=== PATIENT | female | born 1955 | race Caucasian/White ===

== ENCOUNTER 2018-02-16 08:39 | Outpatient (REF) | payer MEDICAID, SELFPAY ==
[2018-02-16 18:37] LABS: Abs Immature Grans 0.01 k/cumm (0.0-0.09); Absolute Basophil Count 0.07 k/cumm (0.0-0.2); Absolute Eosinophil Count 0.17 k/cumm (0.0-0.7); Absolute Neutrophil Count 2.55 k/cumm (1.2-6.7); Basophils % 1.4; Eosinophils % 3.3; HCT 40.6 % (36.0-46.0); HGB 13.2 g/dL (12.0-15.5); Immature Grans % 0.2; Lymphocytes % 35.3; Mean Corp. HGB Concentration 32.5 g/dL (32.0-36.0); Mean Corpuscular Hemoglobin 30.1 pg (27.0-33.0); Mean Corpuscular Volume 92.5 fL (80-95); Mean Platelet Volume 12.4 fL (8.0-11.0); Monocytes % 9.8; Platelet Count 262 x1000/uL (130-400); RBC 4.39 m/cumm (4.00-5.20)
[2018-02-16 18:56] LABS: ALT 21 U/L (12-78); AST 18 U/L (15-37); Albumin 3.5 g/dL (3.4-5.0); Alkaline Phosphatase 98 U/L (46-116); Anion Gap 8.9 mmol/L (3-11); BUN 12 mg/dL (7-18); Bilirubin, Total 0.4 mg/dL (0.2-1.0); CO2 28.1 mmol/L (21.0-32.0); Calcium 9.1 mg/dL (8.5-10.1); Chloride 106 mmol/L (98-107); Cholesterol 261 mg/dL (50-200); Glucose 93 mg/dL (70-100); HDL Cholesterol 84 mg/dL (40-60); LDL CHOLESTEROL 163 mg/dL (<100); Magnesium 1.9 mg/dL (1.8-2.4); Potassium 4.4 mmol/L (3.5-5.1); Sodium 143 mmol/L (136-145); TSH 4.41 uIU/mL (0.358-3.74); Total Protein 6.4 g/dL (6.4-8.2); Triglyceride 30 mg/dL (30-150)
== END 2018-02-16 08:59 ==
LOC: NCHCN 08:39
PROVIDERS: PCP Specialist/Technologist Athletic Trainer; Visit Provider Nurse Practitioner Family
DX: E03.9 Hypothyroidism, unspecified (principal)
CPT/HCPCS: 80053; 80061; 83721; 83735; 84443; 85025

== ENCOUNTER 2018-05-31 18:50 | Outpatient (REF) | payer MEDICAID, SELFPAY ==
--- NOTE | 2018-05-31 18:20 | PAPFT_PTH ---
PATIENT: Zhane Parra LOC: [facility]#:[id number] AGE/SX: 63/F ROOM: RE05/31/[address]: Zeynep Dolan : 1955 BED: DIS: 05/31/2018 SPEC #: [id number] RECD: 06/01/18 13:00 STATUS: FELIPE GONZÁLES #: [id number] LE: 05/31/18 18:[address]: Zeynep Dolan DEPT: [facility] Cytology RECD BY: Anais Junior ENTERED: 06/01/18 13:00 SP TYPE: PAPFT ANNELISE DR: Tip Velasco Tissues: 1 - CX/ENDOCX FOR PAP SMEARS Procedures: PAP THIN PREP/UVM Screening HPV DNA PROBE Comments: [id number]
== END 2018-05-31 19:10 ==
LOC: NCHCN 18:50
PROVIDERS: PCP Specialist/Technologist Athletic Trainer; Visit Provider Nurse Practitioner Family
DX: Z12.4 Encounter for screening for malignant neoplasm of cervix (principal); Z11.51 Encounter for screening for human papillomavirus (HPV); Z01.419 Encounter for gynecological examination (general) (routine) without abnormal findings
CPT/HCPCS: 88142; 87624

== ENCOUNTER 2018-06-20 00:20 | Outpatient (CLI) | payer MEDICAID, SELFPAY ==
--- NOTE | 2018-06-20 08:50 | DI.MAMMO_ITS ---
SYMPTOM/DIAGNOSIS: SCREENING, PREVENTIVE HEALTH CARE, Z00.00 MAMMOGRAMS: Mammograms were interpreted according to the usual protocol including computer analysis with CAD system, tomosynthesis and C view imaging. The breast tissue is of moderate radiodensity. There is no evidence of a mass. There are no suspicious calcifications and there has been no significant interval change when compared with prior images. SUMMARY: No evidence of malignancy. Category 1. Yearly screening mammography is recommended. Breast density, Category B. SA ASSESSMENT OF FINDINGS: Negative. Category 1. Patient will receive a letter notifying them of these results. BI-RADS category B. There are scattered areas of fibroglandular density.
== END 2018-06-20 00:40 ==
PROVIDERS: PCP Specialist/Technologist Athletic Trainer; Visit Provider Nurse Practitioner Family
DX: Z12.31 Encounter for screening mammogram for malignant neoplasm of breast (principal); Z00.00 Encounter for general adult medical examination without abnormal findings
CPT/HCPCS: 77063; 77067

== ENCOUNTER 2018-07-16 20:51 | Emergency (ER) | payer MEDICAID, SELFPAY ==
[2018-07-16 21:02] VITALS: BP 144/92; PULSE 85; RESP 20; TEMP 36.4; O2SAT 95
--- NOTE | 2018-07-16 21:36 | W.ED.GENAD ---
Discharge Plan Disposition Patient Disposition: HOME Condition: Stable Discharge Details Chief Complaint: Sorethroat Clinical Impression: Ingestion of foreign substance Primary Care Provider: Tip Velasco ED Provider: Elizabeth Bojorquez Home Meds and New Rx's Prescriptions: Continued rizatriptan [Maxalt-JERSEY KNITTER] 10 mg tablet,disintegrating 10 mg PO ONCE PRN (Reason: migraine headache) RF: 0 clobetasol 0.05 % cream 1 applic TP BID RF: 0 aspirin [Adult Aspirin Regimen] 81 mg tablet,delayed release (DR/EC) 81 mg PO DAILY RF: 0 triamcinolone acetonide 0.1 % cream 1 applic TP BID RF: 0 pantoprazole [Protonix] 20 mg tablet,delayed release (DR/EC) 20 mg PO DAILY RF: 0 levothyroxine 75 MCG tablet 75 mcg PO DAILY RF: 0 epinephrine 0.3 MG/SYR auto-injector 0.3 mg IJ PRN PRNRF: 0 Discharge Instructions Additional Instructions: Continue to encourage hydration. Please monitor for worsening symptoms including feeling throat tightness, difficulty breathing, shortness of breath, pain with eating or other new/worsening symptoms. If these arise please seek care urgently once again. Please follow-up with primary care if not improved in 1 week Referrals: Tip Velasco [Primary Care Provider] - Discharge Data Discharge Date/Time-TO BE ENTERED AT DEPARTURE: 07/16/18 22:20 Medical Decision Making Patient presents after swallowing an unknown substance yesterday morning with concern for unusual taste in her mouth that is been persistent. She states that her symptoms are minimally improved. No difficulty breathing, shortness of breath and throat. On exam, findings are benign. I do not see any intraoral lesions, she is breathing comfortably, no stridor. Given the length of time since ingestion committed to feel that monitoring the patient further is necessary. Advised that if she is improving she will likely continue to do so. Patient is not quite anxious, discussed this with patient. Advised that if the subsance was likely to cause swelling or lesions it would have likely done so by this point. Discussed new/worsening symptoms and hwne to seek care urgently once again. Advised f/u with PCP if not improving. All quesions and concerns were addressed, she is in agreement with this plan. HPI General Mode of arrival: ambulatory. Date/Time Provider Initiated Documentation: 07/16/18 21:35. Limitations to Documentation: no limitations. Information obtained by: patient, family (friend) and RN notes reviewed. HPI Narrative: Patient is 63-year-old otherwise healthy female presenting today with chief complaint of swelling unknown substance yesterday morning. She reports that she attempted to take a dose of Echinacea. Has a bottle with her that is labeled as such. However, she reports that this is not in fact Echinacea. Believes that his son-in-law was mixing other essential oils to make massage oil. Unknown contents. States that as soon as she put the substance in her mouth, she spit this out. States she may have swallowed a small amount. Since that time she reports that she is been tasting a metallic taste and has had some discomfort. No sweling, SOB, difficulty breathing, lesions. SYmptoms improve with PO intake. Related Data Home Medications Medication Instructions Recorded Confirmed epinephrine 0.3 mg IJ PRN PRN 06/26/12 07/16/18 levothyroxine 75 mcg PO DAILY tab-cap 10/17/13 07/16/18 aspirin 81 mg tablet,delayed 81 mg PO DAILY 06/08/18 07/16/18 release clobetasol 0.05 % topical cream 1 applic TP BID 06/08/18 07/16/18 pantoprazole 20 mg tablet,delayed 20 mg PO DAILY 06/08/18 07/16/18 release rizatriptan 10 mg disintegrating 10 mg PO ONCE PRN tab 06/08/18 07/16/18 tablet triamcinolone acetonide 0.1 % 1 applic TP BID 06/08/18 07/16/18 topical cream Allergies Allergy/AdvReac Type Severity Reaction Status Date / Time venom-honey bee Allergy Intermediate unknown Unverified 07/16/18 21:05 [bee venom (honey bee)] Sulfa (Sulfonamide Allergy unknown Unverified 07/16/18 21:05 Antibiotics) General Stated Complaint: Sorethroat DIANA: 4 Review of Systems Constitutional Reports as per HPI, Denies chills, Denies fever(s) and Denies headache(s) Eyes Reports as per HPI, Denies eye discharge and Denies irritation ENT Reports as per HPI and Denies headache(s) Cardiovascular Reports as per HPI, Denies chest pain, Denies dyspnea and Denies dyspnea on exertion Respiratory Reports as per HPI, Denies change in phlegm color, Denies chest congestion, Denies cough, Denies hemoptysis, Denies pain on inspiration, Denies pain with cough, Denies dyspnea, Denies dyspnea on exertion, Denies stridor and Denies wheezing Gastrointestinal Reports as per HPI, Denies abdominal pain, Denies change in bowel habits, Denies nausea and Denies vomiting Integumentary/Breasts Reports as per HPI and Denies rash Neurologic Reports as per HPI and Denies headache(s) Allergic/Immunologic Denies wheezing [facility] Medical History Acute hemorrhoid (Acute) Costochondritis (Acute) Rectal bleed (Acute) GERD (gastroesophageal reflux disease) (Chronic) Herpes simplex (Chronic) Plantar fasciitis (Chronic) Xerosis of skin (Chronic) History of DVT of lower extremity Hypothyroidism Migraine Prothrombin gene mutation Surgical History Rotator Cuff Repair Family History Father Personal history of malignant neoplasm Maternal Uncle Personal history of malignant neoplasm Mother No problems noted. Social History Smoking/Tobacco Use Status: Never Alcohol Intake: current Alcohol Intake frequency: holidays/special occasions only Drug use: Never Do you feel safe at home: Yes Do you feel safe in your relationship?: Yes Exam Const General: cooperative, healthy appearing, comfortable, no acute distress, well developed and well groomed Nutritional Appearance: average body habitus and well nourished Orientation: alert and awake [facility] Head: normal to inspection, normocephalic and atraumatic Ears: hearing grossly normal bilaterally, external ears normal and TM's normal bilaterally General nose exam: external nose normal and nares normal Face and sinus: normal facial exam, sinuses nontender and face symmetric Mouth: oral mucosae normal, lip normal, tongue normal, oropharynx normal and moist mucous membranes Teeth and gingiva: dentition normal Throat: posterior oropharynx normal, tonsils normal and uvula midline Eyes General: appearance normal, both eyes and all related structures Neck Neck: normal visual inspection, full ROM, no lymphadenopathy and no meningeal signs Resp Effort & Inspection: normal respiratory effort, able to speak in complete sentences and no respiratory distress Auscultation: clear to auscultation bilaterally, no rales, no rhonchi and no wheezes Cardio Rate: regular rate Rhythm: regular rhythm Heart Sounds: S1 normal and S2 normal Skin General skin exam: no rashes or lesions noted Neuro General: alert and awake Cognition: normal cognition Speech: speech normal Gait: normal gait Psych Appearance: grossly normal and well kempt Mental Status: mental status grossly normal Speech and Movement: speech and movement normal Course Vital Signs Temperature 36.4 C L 07/16/18 21:02 Pulse 85 07/16/18 21:02 Respiratory Rate 20 07/16/18 21:02 Blood Pressure 144/92 H 07/16/18 21:02 Pulse Oximetry 95 07/16/18 21:02 Temperature 36.4 C L 07/16/18 21:02 Temperature Source Skin 07/16/18 21:02 Pulse 85 07/16/18 21:02 Respiratory Rate 20 07/16/18 21:02 Respiratory Effort Non-Labored 07/16/18 21:05 Blood Pressure 144/92 H 07/16/18 21:02 Blood Pressure Position Sitting 07/16/18 21:02 Pulse Oximetry 95 07/16/18 21:02 Oxygen Delivery Method Room Air 07/16/18 21:02 Oxygen Flow Rate 0 07/16/18 21:02
--- NOTE | 2018-07-19 07:48 | ED.GENADUL_ITS ---
Discharge Plan Disposition Patient Disposition: HOME Condition: Stable Discharge Details Chief Complaint: Sorethroat Clinical Impression: Ingestion of foreign substance Primary Care Provider: Tip Velasco ED Provider: Elizabeth Bojorquez Home Meds and New Rx's Prescriptions: Continued rizatriptan [Maxalt-CARBON COATING MACHINE OPERATOR] 10 mg tablet,disintegrating 10 mg PO ONCE PRN (Reason: migraine headache) RF: 0 clobetasol 0.05 % cream 1 applic TP BID RF: 0 aspirin [Adult Aspirin Regimen] 81 mg tablet,delayed release (DR/EC) 81 mg PO DAILY RF: 0 triamcinolone acetonide 0.1 % cream 1 applic TP BID RF: 0 pantoprazole [Protonix] 20 mg tablet,delayed release (DR/EC) 20 mg PO DAILY RF: 0 levothyroxine 75 MCG tablet 75 mcg PO DAILY RF: 0 epinephrine 0.3 MG/SYR auto-injector 0.3 mg IJ PRN PRNRF: 0 Discharge Instructions Additional Instructions: Continue to encourage hydration. Please monitor for worsening symptoms including feeling throat tightness, difficulty breathing, shortness of breath, pain with eating or other new/worsening symptoms. If these arise please seek care urgently once again. Please follow-up with primary care if not improved in 1 week Referrals: Tip Velasco [Primary Care Provider] - Discharge Data Discharge Date/Time-TO BE ENTERED AT DEPARTURE: 07/16/18 22:20 Medical Decision Making Patient presents after swallowing an unknown substance yesterday morning with concern for unusual taste in her mouth that is been persistent. She states that her symptoms are minimally improved. No difficulty breathing, shortness of breath and throat. On exam, findings are benign. I do not see any intraoral lesions, she is breathing comfortably, no stridor. Given the length of time since ingestion committed to feel that monitoring the patient further is necessary. Advised that if she is improving she will likely continue to do so. Patient is not quite anxious, discussed this with patient. Advised that if the subsance was likely to cause swelling or lesions it would have likely done so by this point. Discussed new/worsening symptoms and hwne to seek care urgently once again. Advised f/u with PCP if not improving. All quesions and concerns were addressed, she is in agreement with this plan. HPI General Mode of arrival: ambulatory . Date/Time Provider Initiated Documentation: 07/16/18 21:35 . Limitations to Documentation: no limitations . Information obtained by: patient, family (friend) and RN notes reviewed . HPI Narrative: Patient is 63-year-old otherwise healthy female presenting today with chief complaint of swelling unknown substance yesterday morning. She reports that she attempted to take a dose of Echinacea. Has a bottle with her that is labeled as such. However, she reports that this is not in fact Echinacea. Believes that his son-in-law was mixing other essential oils to make massage oil. Unknown contents. States that as soon as she put the substance in her mouth, she spit this out. States she may have swallowed a small amount. Since that time she reports that she is been tasting a metallic taste and has had some discomfort. No sweling, SOB, difficulty breathing, lesions. SYmptoms improve with PO intake. Related Data Home Medications Medication Instructions Recorded Confirmed epinephrine 0.3 mg IJ PRN PRN 06/26/12 07/16/18 levothyroxine 75 mcg PO DAILY tab-cap 10/17/13 07/16/18 aspirin 81 mg tablet,delayed 81 mg PO DAILY 06/08/18 07/16/18 release clobetasol 0.05 % topical cream 1 applic TP BID 06/08/18 07/16/18 pantoprazole 20 mg tablet,delayed 20 mg PO DAILY 06/08/18 07/16/18 release rizatriptan 10 mg disintegrating 10 mg PO ONCE PRN tab 06/08/18 07/16/18 tablet triamcinolone acetonide 0.1 % 1 applic TP BID 06/08/18 07/16/18 topical cream Allergies Allergy/AdvReac Type Severity Reaction Status Date / Time venom-honey bee Allergy Intermediate unknown Unverified 07/16/18 21:05 [bee venom (honey bee)] Sulfa (Sulfonamide Allergy unknown Unverified 07/16/18 21:05 Antibiotics) General Stated Complaint: Sorethroat DIANA: 4 Review of Systems Constitutional Reports as per HPI, Denies chills, Denies fever(s) and Denies headache(s) Eyes Reports as per HPI, Denies eye discharge and Denies irritation ENT Reports as per HPI and Denies headache(s) Cardiovascular Reports as per HPI, Denies chest pain, Denies dyspnea and Denies dyspnea on exertion Respiratory Reports as per HPI, Denies change in phlegm color, Denies chest congestion, Denies cough, Denies hemoptysis, Denies pain on inspiration, Denies pain with cough, Denies dyspnea, Denies dyspnea on exertion, Denies stridor and Denies wheezing Gastrointestinal Reports as per HPI, Denies abdominal pain, Denies change in bowel habits, Denies nausea and Denies vomiting Integumentary/Breasts Reports as per HPI and Denies rash Neurologic Reports as per HPI and Denies headache(s) Allergic/Immunologic Denies wheezing [facility] Medical History Acute hemorrhoid (Acute) Costochondritis (Acute) Rectal bleed (Acute) GERD (gastroesophageal reflux disease) (Chronic) Herpes simplex (Chronic) Plantar fasciitis (Chronic) Xerosis of skin (Chronic) History of DVT of lower extremity Hypothyroidism Migraine Prothrombin gene mutation Surgical History Rotator Cuff Repair Family History Father Personal history of malignant neoplasm Maternal Uncle Personal history of malignant neoplasm Mother No problems noted. Social History Smoking/Tobacco Use Status: Never Alcohol Intake: current Alcohol Intake frequency: holidays/special occasions only Drug use: Never Do you feel safe at home: Yes Do you feel safe in your relationship?: Yes Exam Const General: cooperative, healthy appearing, comfortable, no acute distress, well developed and well groomed Nutritional Appearance: average body habitus and well nourished Orientation: alert and awake [facility] Head: normal to inspection, normocephalic and atraumatic Ears: hearing grossly normal bilaterally, external ears normal and TM's normal bilaterally General nose exam: external nose normal and nares normal Face and sinus: normal facial exam, sinuses nontender and face symmetric Mouth: oral mucosae normal, lip normal, tongue normal, oropharynx normal and moist mucous membranes Teeth and gingiva: dentition normal Throat: posterior oropharynx normal, tonsils normal and uvula midline Eyes General: appearance normal, both eyes and all related structures Neck Neck: normal visual inspection, full ROM, no lymphadenopathy and no meningeal signs Resp Effort & Inspection: normal respiratory effort, able to speak in complete sentences and no respiratory distress Auscultation: clear to auscultation bilaterally, no rales, no rhonchi and no wheezes Cardio Rate: regular rate Rhythm: regular rhythm Heart Sounds: S1 normal and S2 normal Skin General skin exam: no rashes or lesions noted Neuro General: alert and awake Cognition: normal cognition Speech: speech normal Gait: normal gait Psych Appearance: grossly normal and well kempt Mental Status: mental status grossly normal Speech and Movement: speech and movement normal Course Vital Signs Temperature 36.4 C L 07/16/18 21:02 Pulse 85 07/16/18 21:02 Respiratory Rate 20 07/16/18 21:02 Blood Pressure 144/92 H 07/16/18 21:02 Pulse Oximetry 95 07/16/18 21:02 Temperature 36.4 C L 07/16/18 21:02 Temperature Source Skin 07/16/18 21:02 Pulse 85 07/16/18 21:02 Respiratory Rate 20 07/16/18 21:02 Respiratory Effort Non-Labored 07/16/18 21:05 Blood Pressure 144/92 H 07/16/18 21:02 Blood Pressure Position Sitting 07/16/18 21:02 Pulse Oximetry 95 07/16/18 21:02 Oxygen Delivery Method Room Air 07/16/18 21:02 Oxygen Flow Rate 0 07/16/18 21:02
== END 2018-07-16 22:20 | disposition home or self-care (01) ==
PROVIDERS: Emergency Provider Physician Assistant; PCP Specialist/Technologist Athletic Trainer
DX: R43.8 Other disturbances of smell and taste (principal)
CPT/HCPCS: 99282

== ENCOUNTER 2018-07-20 01:05 | Outpatient (CLI) | payer MEDICAID, SELFPAY ==
--- NOTE | 2018-07-20 08:10 | DI.US_ITS ---
SYMPTOM/DIAGNOSIS: RUQ PAIN, R10.11 ABDOMEN ULTRASOUND: The liver is normal in size and echogenicity. No focal liver lesions or biliary dilatation is seen. The gallbladder has a normal appearance, without evidence of stones or wall thickening. No right upper quadrant fluid is seen. The spleen, pancreas and aorta are unremarkable. There is a question of mild left hydronephrosis versus parapelvic cysts. No stones are identified. The renal parenchymal thickness and echogenicity are normal. IMPRESSION: Question of mild left hydronephrosis.
== END 2018-07-20 01:25 ==
PROVIDERS: PCP Specialist/Technologist Athletic Trainer; Visit Provider Family Medicine
DX: R10.11 Right upper quadrant pain (principal); N13.30 Unspecified hydronephrosis
CPT/HCPCS: 76700

== ENCOUNTER 2018-07-26 17:56 | Outpatient (REF) | payer MEDICAID, SELFPAY ==
[2018-07-26 21:03] LABS: Anion Gap 12.1 mmol/L (3-11); BUN 13 mg/dL (7-18); CO2 26.9 mmol/L (21.0-32.0); CREATININE 0.75 mg/dL (0.55-1.02); Calcium 9.4 mg/dL (8.5-10.1); Chloride 104 mmol/L (98-107); Glucose 93 mg/dL (70-100); Potassium 3.9 mmol/L (3.5-5.1); Sodium 143 mmol/L (136-145)
[2018-07-26 21:22] LABS: Bacteria Negative HPF (Negative); Casts Negative LPF (Negative); Crystals Negative HPF (Negative); Epithelial Cells Negative HPF (Negative); Mucus Negative (Negative); Other Cells Negative (Negative); WBC Negative HPF (0-5)
[2018-07-26 21:23] LABS: C & S Indicated? C&S Done As Ordered
== END 2018-07-26 18:16 ==
LOC: NCHCN 17:56
PROVIDERS: PCP Specialist/Technologist Athletic Trainer; Visit Provider Nurse Practitioner Family
DX: R10.11 Right upper quadrant pain (principal); R93.5 Abnormal findings on diagnostic imaging of other abdominal regions, including retroperitoneum
CPT/HCPCS: 80048; 81015; 87086

== ENCOUNTER 2018-08-01 00:53 | Outpatient (CLI) | payer MEDICAID, SELFPAY ==
--- NOTE | 2018-08-01 15:25 | DI.CT_ITS ---
SYMPTOM/DIAGNOSIS: ABNL ABD IMAGING, R93.5, ABD US SHOWING ? MILD LT HYDRONEPHROSIS VS PARAPELVIC CYSTS, RUQ PAIN, H/O KIDNEY STONES ABDOMEN AND PELVIC CT: The study was carried out with an intravenous injection of 100 cc's of Omnipaque 350. The visualized portions of the liver are intact. The gallbladder is unremarkable. The pancreas, spleen and kidneys are normal. There is no evidence of hydronephrosis. The adrenals are normal. There is no evidence of bowel obstruction. The appendix is not seen but there is no evidence of an acute appendicitis. There is some questionable thickening of the wall of the rectum. Otherwise no localized bowel abnormality is suggested. The bladder is intact. The reproductive organs as visualized are intact. There is no evidence of free air or free fluid in the intraperitoneal space. There is no evidence of an acute bony abnormality. SUMMARY: No evidence of hydronephrosis. No evidence of renal pathology. There is a question regarding bowel wall thickening in the region of the distal sigmoid and rectum. If there is any further clinical question, endoscopic correlation is suggested.
[2018-08-01] MEDS: Omnipaque 350 MG/ML 100 ML BTL IJ (15:30)
== END 2018-08-01 01:13 ==
PROVIDERS: PCP Specialist/Technologist Athletic Trainer; Visit Provider Nurse Practitioner Family
DX: R93.5 Abnormal findings on diagnostic imaging of other abdominal regions, including retroperitoneum (principal); R10.11 Right upper quadrant pain; K63.89 Other specified diseases of intestine
CPT/HCPCS: 74178; J3490

== ENCOUNTER 2018-08-28 00:59 | Outpatient (CLI) | payer MEDICAID, SELFPAY ==
--- NOTE | 2018-08-28 08:00 | DI.NM_ITS ---
SYMPTOM/DIAGNOSIS: RUQ PAIN, R10.11 CCK HEPATOBILIARY SCAN: 4.5 millicuries of Technetium 99 M Mebrofenin were administered IV. There is normal hepatic uptake. The gallbladder and bowel are promptly visualized. 1.0 micrograms of Kinevac were administered via IV drip over 44 minutes. The gallbladder ejection fraction is low at 14%. IMPRESSION: Low gallbladder ejection fraction of 14%.
== END 2018-08-28 01:19 ==
PROVIDERS: PCP Specialist/Technologist Athletic Trainer; Visit Provider Surgery
DX: R10.11 Right upper quadrant pain (principal); R93.2 Abnormal findings on diagnostic imaging of liver and biliary tract
CPT/HCPCS: 78227

== ENCOUNTER 2018-09-18 06:22 | Day surgery (SDC) | payer MEDICAID, SELFPAY ==
[2018-09-18 06:53] VITALS: BP 114/77; PULSE 62; RESP 16; TEMP 36.2; O2SAT 97
[2018-09-18] MEDS: Lactated Ringers 1,000 ML 80 ML IV (07:24)
--- NOTE | 2018-09-18 07:58 | BOWEL_PTH ---
PATIENT: Zhane Parra LOC: [facility] U#:[id number] AGE/SX: 63/F ROOM: RE09/18/[address]: Jazmín Berg MD : 1955 BED: DIS: 09/18/2018 SPEC #: [id number] RECD: 09/18/18 12:50 STATUS: FELIPE REQ #: [id number] LE: 09/18/18 07:[address]: Jazmín Berg DEPT: Surgical Specimen RECD BY: Anais Junior ENTERED: 09/18/18 12:51 SP TYPE: Bowel OTHR DR: Tip Velasco Tissues: 1 - BIOPSY BOWEL Procedures: GROSS AND MICRO LEVEL 4 Comments: [id number]
--- NOTE | 2018-09-18 08:15 | W.PM.DSUDISC ---
Discharge Plan Disposition Patient Disposition: HOME Condition: Good Discharge Details Attending Provider: Jazmín Berg Primary Care Provider: Tip Velasco Home Meds and New Rx's Prescriptions: Continued rizatriptan [Maxalt-ELECTRONIC BENCH TECHNICIAN] 10 mg tablet,disintegrating 10 mg PO ONCE PRN (Reason: migraine headache) RF: 0 aspirin [Adult Aspirin Regimen] 81 mg tablet,delayed release (DR/EC) 81 mg PO DAILY RF: 0 clobetasol 0.05 % cream 1 applic TP BID PRNRF: 0 pantoprazole [Protonix] 20 mg tablet,delayed release (DR/EC) 20 mg PO DAILY PRNRF: 0 triamcinolone acetonide 0.1 % cream 1 applic TP BID PRNRF: 0 levothyroxine 75 MCG tablet 75 mcg PO DAILY RF: 0 epinephrine 0.3 MG/SYR auto-injector 0.3 mg IJ PRN PRNRF: 0 Discontinued polyethylene glycol 3350 17 gram/dose powder 238 g PO ONCE Qty: 238 RF: 0 bisacodyl [Dulcolax (bisacodyl)] 5 mg tablet,delayed release (DR/EC) 5 mg PO ONCE Qty: 4 RF: 0 Discharge Instructions Additional Instructions: One small polyp was removed. My office will send a letter with results. It is anticipated you will need a colonoscopy in 5 years. Call for abdominal pain, fever, bleeding Keep your appointment Referrals: Jazmín Berg MD [ [facility] STAFF PHYSICIAN] - (Keep your appointment scheduled for 10/01/18 at 3:30 to discuss gallbladder issues) Activity:: Activity as Tolerated Diet:: As Tolerated Discharge Orders Discharge Orders: Discharge Order (Routine); Ordered 09/18/18 Ordered By: Jazmín Berg DS: Diagnosis Discharge Diagnosis (1) Colon polyp: Start date: 09/18/18 Start time: 08:19 Status: Acute
[2018-09-18 09:05] VITALS: BP 103/70; PULSE 42; RESP 16; TEMP 36.2; O2SAT 100
--- NOTE | 2018-09-18 13:54 | COLE_ITS ---
DATE OF PROCEDURE: September 18, 2018 PREOPERATIVE DIAGNOSIS: 1. History of colon polyps. 2. Abnormal CT scan. POSTOPERATIVE DIAGNOSIS: Ascending colon polyp. PROCEDURE: Colonoscopy with polypectomy. SURGEON: Jazmín Berg M.D. ANESTHESIA: General. INDICATIONS: This is a 63-year-old woman whose last colonoscopy in 2013 showed a polyp. The patient has also had a CT scan of the abdomen and pelvis that showed some questionable thickening of the wal l of the rectum. PROCEDURE: She was placed in the left Spicer' position. Propofol was titrated to sedation. Digital r ectal examination revealed no abnormalities. The scope was advanced to the cecum without difficulty. Her prep was good. The ileocecal valve and appendiceal orifice were clearly identified. In the mi d ascending colon there was a < 1 cm polyp that was removed with snare polypectomy and retrieved for pathology. No other abnormalities were noted throughout the remainder of the ascending, transverse, descending, sigmoid colon or rectum, including on retroflex view. There was no inflammatory change o r other abnormality in the rectum. It is anticipated that she will need a follow-up colonoscopy in f doris years, depending on polyp pathology. cc: Fabrizio Fisher.
== END 2018-09-18 09:31 | disposition home or self-care (01) ==
PROVIDERS: PCP Specialist/Technologist Athletic Trainer; Visit Provider Surgery
PROC: 0DJD8ZZ Inspection of Lower Intestinal Tract, Via Natural or Artificial Opening Endoscopic (ICD-10-PCS; CPT 45378; principal; 2018-09-18 07:30)
DX: R93.5 Abnormal findings on diagnostic imaging of other abdominal regions, including retroperitoneum (principal); D12.2 Benign neoplasm of ascending colon; Z86.010 Personal history of colon polyps; K21.9 Gastro-esophageal reflux disease without esophagitis
CPT/HCPCS: 45385; 88305; J2250

== ENCOUNTER 2019-08-09 11:36 | Outpatient (REF) | payer MEDICAID, SELFPAY ==
[2019-08-09 20:27] LABS: TSH 1.39 uIU/mL (0.36-3.74)
== END 2019-08-09 11:56 ==
LOC: NCHCN 11:36
PROVIDERS: PCP Specialist/Technologist Athletic Trainer; Visit Provider Nurse Practitioner Family
DX: E03.9 Hypothyroidism, unspecified (principal)
CPT/HCPCS: 84443

== ENCOUNTER 2019-08-22 16:53 | Emergency (ER) | payer MEDICAID, SELFPAY ==
[2019-08-22 17:00] VITALS: BP 148/97; PULSE 82; TEMP 37.1; O2SAT 97
--- NOTE | 2019-08-22 17:07 | ED.GENADUL_ITS ---
Discharge Plan Disposition Patient Disposition: HOME Condition: Stable Discharge Details Chief Complaint: EyeProblem Clinical Impression: Abrasion, corneal Primary Care Provider: Zeynep Dolan ED Provider: Dwayne Garcia Home Meds and New Rx's Prescriptions: New erythromycin 5 mg/gram (0.5 %) ointment 0.5 inch OP QID 7 Days Qty: 3.5 RF: 0 Continued rizatriptan [Maxalt-ROTOR CASTING MACHINE OPERATOR] 10 mg tablet,disintegrating 10 mg PO ONCE PRN (Reason: migraine headache) RF: 0 aspirin [Adult Aspirin Regimen] 81 mg tablet,delayed release (DR/EC) 81 mg PO DAILY RF: 0 clobetasol 0.05 % cream 1 applic TP BID PRNRF: 0 pantoprazole [Protonix] 20 mg tablet,delayed release (DR/EC) 20 mg PO DAILY PRNRF: 0 triamcinolone acetonide 0.1 % cream 1 applic TP BID PRNRF: 0 levothyroxine 75 MCG tablet 75 mcg PO DAILY RF: 0 epinephrine 0.3 MG/SYR auto-injector 0.3 mg IJ PRN PRNRF: 0 Discharge Instructions Instructions: Corneal Abrasion (ED) Additional Instructions: Erythromycin as directed. [id number] lubricating eyedrops as directed. Do not use within 1 hour of your antibiotic ointment. Avoid touching your eye. Please watch for new or worsening symptoms and return to the ER for any concerns. I do recommend contacting your primary care provider for prompt outpatient reevaluation. If you are not doing any better with therapy likely outpatient referral to adoption specialist is indicated. HPI General Mode of arrival: ambulatory . Date/Time Provider Initiated Documentation: 08/22/19 17:06 . Limitations to Documentation: no limitations . Information obtained by: patient . HPI Narrative: This is a 64-year-old female with history of GERD, hypothyroidism, migraine, presenting to the ER today for what she believes is a potential foreign body to the left eye. This morning she was driving with the window down and felt as though something may have flown into her eye. Related Data Home Medications Medication Instructions Recorded Confirmed epinephrine 0.3 mg IJ PRN PRN 06/26/12 08/22/19 levothyroxine 75 mcg PO DAILY tab-cap 10/17/13 08/22/19 aspirin 81 mg tablet,delayed 81 mg PO DAILY 06/08/18 08/22/19 release rizatriptan 10 mg disintegrating 10 mg PO ONCE PRN tab 06/08/18 08/22/19 tablet clobetasol 0.05 % topical cream 1 applic TP BID PRN 08/20/18 08/22/19 pantoprazole 20 mg tablet,delayed 20 mg PO DAILY PRN 08/20/18 08/22/19 release triamcinolone acetonide 0.1 % 1 applic TP BID PRN 08/20/18 08/22/19 topical cream erythromycin 0.5 inch OP QID 7 Days #3.5 gm 08/22/19 Previous Rx's Medication Instructions Recorded erythromycin 0.5 inch OP QID 7 Days #3.5 gm 08/22/19 Allergies Allergy/AdvReac Type Severity Reaction Status Date / Time venom-honey bee Allergy Intermediate unknown Verified 08/22/19 17:03 [bee venom (honey bee)] Sulfa (Sulfonamide Allergy unknown Verified 08/22/19 17:03 Antibiotics) General Stated Complaint: EyeProblem DIANA: 4 [facility] Medical History (Updated 08/22/19 @ 17:57 by SAJI Mosqueda) Acute hemorrhoid (Acute) Costochondritis (Acute) GERD (gastroesophageal reflux disease) (Chronic) Herpes simplex (Chronic) History of DVT of lower extremity Hypothyroidism Migraine Plantar fasciitis (Chronic) Prothrombin gene mutation Rectal bleed (Acute) Tubular adenoma of colon (Acute) 09/18/18 Dr Jazmín Berg, repeat colo 5 yrs Xerosis of skin (Chronic) Surgical History (Updated 10/17/18 @ 15:20 by Ruthie Lockett RN) Rotator Cuff Repair Family History (Updated 09/18/18 @ 06:53 by Pat Ariza) Father Personal history of malignant neoplasm Prostate CA Maternal Uncle Personal history of malignant neoplasm prostate CA Mother No problems noted. Other Diabetes Heart disease Social History Smoking/Tobacco Use Status: Never Alcohol Intake: current Alcohol Intake frequency: holidays/special occasions only Drug use: Never Substance use type: does not use Do you feel safe at home: Yes Do you feel safe in your relationship?: Yes Course Vital Signs Vital signs: Vital Signs Temperature 37.1 C 08/22/19 17:00 Pulse 82 08/22/19 17:00 Blood Pressure 148/97 H 08/22/19 17:00 Pulse Oximetry 97 08/22/19 17:00 Temperature 37.1 C 08/22/19 17:00 Pulse 82 08/22/19 17:00 Blood Pressure 148/97 H 08/22/19 17:00 Blood Pressure Position Sitting 08/22/19 17:00 Pulse Oximetry 97 08/22/19 17:00 Oxygen Delivery Method Room Air 08/22/19 17:00 Oxygen Flow Rate 0 08/22/19 17:00 Pain Level 8 08/22/19 17:00
[2019-08-22 18:06] VITALS: BP 136/78; PULSE 64; RESP 18; TEMP 36.3; O2SAT 98
--- NOTE | 2019-12-24 08:55 | NUR.NOTE ---
Nursing Note: asked to review chart for provider to provide visual acuity for documentation.
== END 2019-08-22 18:05 | disposition home or self-care (01) ==
PROVIDERS: Emergency Provider Physician Assistant; PCP Nurse Practitioner Family
DX: S05.02XA Injury of conjunctiva and corneal abrasion without foreign body, left eye, initial encounter (principal); X58.XXXA Exposure to other specified factors, initial encounter
CPT/HCPCS: 99283; 99281

== ENCOUNTER 2020-02-20 17:01 | Emergency (ER) | payer MEDICAID, SELFPAY ==
[2020-02-20 17:10] VITALS: BP 146/83; PULSE 73; RESP 16; TEMP 36.5; O2SAT 97
--- NOTE | 2020-02-20 18:20 | DI.RAD_ITS ---
EXAM: XR FOOT RT COMPLETE CLINICAL HISTORY: stubbed foot on monday. TECHNIQUE: 2D digital imaging was performed. COMPARISON: No exams were available for comparison FINDINGS: BONES: There is a nondisplaced acute transverse fracture at the junction of the proximal metaphysis a nd diaphysis of the proximal phalanx of the right 5th toe. There is associated soft tissue swelling. No bony destructive lesion is seen. JOINTS: No dislocation present. SOFT TISSUE: Soft tissue swelling of the distal and lateral foot. IMPRESSION: Nondisplaced fracture involving the proximal phalanx of the right 5th toe as described above. Associ ated soft tissue swelling is noted. DATA REPOSITORY: RADIATION DOSE DELIVERED:
--- NOTE | 2020-02-20 18:30 | ED.GENADUL_ITS ---
Discharge Plan Disposition Patient Disposition: HOME Condition: Stable Discharge Details Clinical Impression: Fracture of toe, Calf pain Primary Care Provider: Zeynep Dolan ED Provider: Dwayne Garcia Home Meds and New Rx's Prescriptions: Continued rizatriptan [Maxalt-TELEVISION INSTALLER HELPER] 10 mg tablet,disintegrating 10 mg PO ONCE PRN (Reason: migraine headache) RF: 0 aspirin [Adult Aspirin Regimen] 81 mg tablet,delayed release (DR/EC) 81 mg PO DAILY RF: 0 clobetasol 0.05 % cream 1 applic TP BID PRNRF: 0 pantoprazole [Protonix] 20 mg tablet,delayed release (DR/EC) 20 mg PO DAILY PRNRF: 0 triamcinolone acetonide 0.1 % cream 1 applic TP BID PRNRF: 0 levothyroxine 75 MCG tablet 75 mcg PO DAILY RF: 0 epinephrine 0.3 MG/SYR auto-injector 0.3 mg IJ PRN PRNRF: 0 Discharge Instructions Instructions: Toe Fracture (ED), Leg Pain (ED) Additional Instructions: Wear phan tape and the short leg boot until reevaluation with orthopedics. Contact orthopedics tomorrow for prompt outpatient reevaluation. You were given a single dose of Lovenox now. I have placed you for an ultrasound of your right lower extremity tomorrow, they will contact you first thing tomorrow morning to set up your ultrasound appointment. Please watch for new or w orsening symptoms and return to the ER for any concerns. Referrals: Chetan Fuentes MD [ [facility] STAFF PHYSICIAN] - Discharge Data Discharge Date/Time-TO BE ENTERED AT DEPARTURE: 02/20/20 19:10 Medical Decision Making 64-year-old female presenting with 2 separate complaints. First she stubbed her toe-foot on Monday. Clinically there is ecchymosis and discomfort. Will obtain x-ray to rule out bony abnormality. Secondly she reports right calf pain. Denies any injury. Denies shortness of breath or chest pain. Difficult to know whether this is related to the initial trauma of the foot or given her past medical history of DVT if there could be a DVT reoccurring. Unfortunately we are without ultrasound as it is after hours. Discussed this with patient. We will set her up for an ultrasound tomorrow morning of the right lower extremity. We discussed pros and cons of single dose of Lovenox now, she would prefer to have this dose given. 1 mg/kg of Lovenox given. X-ray of right foot read by me as a minimally displaced fifth toe fracture. Discussed x-ray findings with patiet. Discussed options. She would like her fourth and fifth toe phan taped and will have a short leg walking boot applied. She was also given the name and number of orthopedics. She will contact her office tomorrow for prompt outpatient reevaluation. Medical Records Medical records reviewed: Yes I reviewed the patient's medical records. HPI General Mode of arrival: ambulatory . Date/Time Provider Initiated Documentation: 02/20/20 17:03 . Limitations to Documentation: no limitations . Information obtained by: patient . HPI Narrative: This is a 64-year-old female with past medical history that includes DVT x2, not currently anticoagulated, GERD, hypothyroidism, migraines, presents to the ER for evaluation. She states that on Monday she stubbed her fifth toe causing moderate pain. She did not think much of it however subsequently a few days later she began having discomfort in her right calf. She denies any injury to her calf. She denies any redness, swelling, chest pain, shortness of breath. She contacted her primary care office today who recommended coming to the ER for ultrasound given her history of DVTs. Patient reports that the pain in her calf is not constant, nothing really makes it worse or better. Related Data Home Medications Medication Instructions Recorded Confirmed epinephrine 0.3 mg IJ PRN PRN 06/26/12 02/20/20 levothyroxine 75 mcg PO DAILY tab-cap 10/17/13 02/20/20 aspirin 81 mg tablet,delayed 81 mg PO DAILY 06/08/18 02/20/20 release rizatriptan 10 mg disintegrating 10 mg PO ONCE PRN tab 06/08/18 02/20/20 tablet clobetasol 0.05 % topical cream 1 applic TP BID PRN 08/20/18 02/20/20 pantoprazole 20 mg tablet,delayed 20 mg PO DAILY PRN 08/20/18 02/20/20 release triamcinolone acetonide 0.1 % 1 applic TP BID PRN 08/20/18 02/20/20 topical cream Allergies Allergy/AdvReac Type Severity Reaction Status Date / Time venom-honey bee Allergy Intermediate unknown Verified 02/20/20 17:16 [bee venom (honey bee)] Sulfa (Sulfonamide Allergy unknown Verified 02/20/20 17:16 Antibiotics) wasps Allergy Uncoded 02/20/20 17:17 General Stated Complaint: Orthopedic DIANA: 3 Review of Systems Constitutional Constitutional: Denies fever(s) and Denies weakness Cardiovascular Cardiovascular: Denies chest pain and Denies dyspnea Respiratory Respiratory: Denies cough and Denies dyspnea Musculoskeletal Musculoskeletal: Reports arthralgias, Denies numbness, Reports stiffness and Denies tingling Integumentary/Breasts Skin/Breast: Denies erythema Neurologic Neurologic: Denies numbness, Denies tingling and Denies weakness [facility] Medical History Acute hemorrhoid Costochondritis GERD (gastroesophageal reflux disease) Herpes simplex History of DVT of lower extremity Hypothyroidism Migraine Plantar fasciitis Prothrombin gene mutation Rectal bleed Tubular adenoma of colon 09/18/18 Dr Jazmín Berg, repeat colo 5 yrs Xerosis of skin Surgical History Rotator Cuff Repair Family History Father Personal history of malignant neoplasm Prostate CA Maternal Uncle Personal history of malignant neoplasm prostate CA Mother No problems noted. Other Diabetes Heart disease Social History Smoking/Tobacco Use Status: Never Smoking risk assessment performed?: Yes Alcohol Intake: current Alcohol Intake frequency: holidays/special occasions only Drug use: Never Substance use type: does not use Do you feel safe at home: Yes Do you feel safe in your relationship?: Yes Exam Const General: cooperative, healthy appearing, comfortable and no acute distress Orientation: alert and awake HENIA Head: normal to inspection, normocephalic and atraumatic Face and sinus: normal facial exam Mouth: moist mucous membranes Eyes General: appearance normal, both eyes and all related structures Conjunctivae: conjunctivae normal Sclera: sclerae normal Neck Neck: normal visual inspection, full ROM, trachea midline and supple Resp Effort & Inspection: normal respiratory effort and able to speak in complete sentences Auscultation: clear to auscultation bilaterally Cardio Rate: regular rate Rhythm: regular rhythm Back/Spine/Pelvis Back: No back tenderness Skin General skin exam: no rashes or lesions noted Neuro General: patient alert, patient awake, moves all extremities and no focal motor deficits Cognition: normal cognition Speech: speech normal Gait: antalgic Motor: muscle tone normal throughout Sensory Exam: no sensory deficits noted Extrem Right lower extremity: full ROM, normal capillary refill, lower leg Details: tenderness Location: of the posterior calf (Mild in nature), no edema and other (Negative Homans' sign); no erythema, no palpable cords, no pitting edema and no non-pitting edema, ankle Details: normal to inspection, no edema and normal ROM; no tenderness and no swelling and foot Details: normal capillary refill, abnormal to inspection, tenderness, toes with normal ROM, no edema and ecchymosis Left lower extremity: normal to inspection, full ROM and normal capillary refill Ankle/foot/toe images: 1. Ecchymosis, swelling, minimal tenderness, worse over the fifth digit. Psych Appearance: grossly normal Mental Status: mental status grossly normal Course Vital Signs Vital signs: Vital Signs Temperature 36.5 C 02/20/20 17:10 Pulse 73 02/20/20 17:10 Respiratory Rate 16 02/20/20 17:10 Blood Pressure 146/83 H 02/20/20 17:10 Pulse Oximetry 97 02/20/20 17:10 Temperature 36.5 C 02/20/20 17:10 Temperature Source Skin 02/20/20 17:10 Pulse 73 02/20/20 17:10 Respiratory Rate 16 02/20/20 17:10 Respiratory Effort Non-Labored 02/20/20 17:10 Blood Pressure 146/83 H 02/20/20 17:10 Blood Pressure Position Sitting 02/20/20 17:10 Pulse Oximetry 97 02/20/20 17:10 Oxygen Delivery Method Room Air 02/20/20 17:10 Oxygen Flow Rate 0 02/20/20 17:10 Pain Level 7 02/20/20 17:10
[2020-02-20] MEDS: Enoxaparin 80 MG/0.8 ML SYR 70 MG SC (19:05)
--- NOTE | 2020-02-20 19:14 | DI.VRAD_ITS ---
PROCEDURE INFORMATION: Exam: XR Right Foot Complete Exam date and time: 02/20/2020 5:40 PM Age: 64 years old Clinical indication: Pain; Toes; Right TECHNIQUE: Imaging protocol: XR Right foot. Views: 3 or more views. COMPARISON: No relevant prior studies available. FINDINGS: Bones/joints: There is a minimally displaced transverse fracture in the proximal metadiaphysis of the right 5th toe proximal phalanx. No gross articular extension. No other fractures. Joint spaces are well-maintained. No blastic or lytic lesions. No gross ankle joint effusion. Soft tissues: No periostitis or osteolysis. Moderate soft tissue swelling in the lateral forefoot. No radiopaque foreign bodies. Other findings: Normal alignment is maintained in the midfoot, hindfoot, and forefoot. Normal mineralization. No hindfoot coalition. IMPRESSION: Minimally displaced fracture of the 5th toe proximal phalanx. Moderate surrounding soft tissue swelling. Dictated and Authenticated by: Sher Machado MD. Ordering:GABE Rice MD
== END 2020-02-20 19:10 | disposition home or self-care (01) ==
PROVIDERS: Emergency Provider Physician Assistant; PCP Nurse Practitioner Family
DX: S92.514A Nondisplaced fracture of proximal phalanx of right lesser toe(s), initial encounter for closed fracture (principal); W22.09XA Striking against other stationary object, initial encounter; M79.661 Pain in right lower leg; Z86.718 Personal history of other venous thrombosis and embolism
CPT/HCPCS: 28510; 96372; 99282; 73630; 99281; J1650

== ENCOUNTER 2020-02-21 11:08 | Outpatient (CLI) | payer MEDICAID, SELFPAY ==
--- NOTE | 2020-02-21 | DI.US_ITS ---
EXAM: US LOWER EXTREMITY VENOUS RT CLINICAL HISTORY: CALF PAIN, H/O DVT, ? DVT TECHNIQUE: Right lower extremity venous ultrasound performed using grayscale, color-flow, and spectr al Doppler analysis. COMPARISON: US RIGHT EXTREMITY ULTRASOUND from 10/02/2015 FINDINGS: The right common femoral, femoral and popliteal veins demonstrate normal compressibility, augmentatio n, and color Doppler. The posterior tibial veins are patent. There is hypoechoic thrombus seen in serena th peroneal veins extending from the proximal to the mid calf. The thrombus measures 9.8 cm in lengt h. The saphenofemoral junction is unremarkable. There is no evidence of a Monk cyst. The soft tis sues are unremarkable. IMPRESSION: 1. No evidence of a DVT through to the levels of the popliteal vein. 2. Thrombus is seen in the peroneal veins in the calf. The thrombus measures 9.8 cm in length. 3. Findings were discussed with the emergency department on the date of the examination. DATA REPOSITORY:
== END 2020-02-21 11:28 ==
PROVIDERS: PCP Nurse Practitioner Family; Visit Provider Physician Assistant
DX: I82.451 Acute embolism and thrombosis of right peroneal vein (principal)
CPT/HCPCS: 93971

== ENCOUNTER 2020-02-21 11:11 | Emergency (ER) | payer MEDICAID, SELFPAY ==
[2020-02-21 11:15] VITALS: BP 136/84; PULSE 80; RESP 19; TEMP 36.3; O2SAT 100
--- NOTE | 2020-02-21 11:34 | ED.GENADUL_ITS ---
Discharge Plan Disposition Patient Disposition: HOME Condition: Improving Discharge Details Clinical Impression: Thrombosis of right peroneal vein Primary Care Provider: Zeynep Dolan ED Provider: Mark Anthony Roberts Home Meds and New Rx's Prescriptions: Continued rizatriptan [Maxalt-TAXI DRIVER] 10 mg tablet,disintegrating 10 mg PO ONCE PRN (Reason: migraine headache) RF: 0 clobetasol 0.05 % cream 1 applic TP BID PRNRF: 0 pantoprazole [Protonix] 20 mg tablet,delayed release (DR/EC) 20 mg PO DAILY PRNRF: 0 triamcinolone acetonide 0.1 % cream 1 applic TP BID PRNRF: 0 levothyroxine 75 MCG tablet 75 mcg PO DAILY RF: 0 epinephrine 0.3 MG/SYR auto-injector 0.3 mg IJ PRN PRNRF: 0 No Action aspirin [Adult Aspirin Regimen] 81 mg tablet,delayed release (DR/EC) 81 mg PO DAILY RF: 0 Discharge Instructions Additional Instructions: Begin aspirin 325 mg daily. I warm compress to area to speed healing. We will ask our care management team to arrange a follow-up for you in clinic with Zeynep Dolan in 1 week's time. As discussed to recommend surveillance of the your indeterminate distal vein thrombus of the peroneal vein over the next 1 to 2 weeks time with repeat ultrasound. Return for increased pain or swelling of the leg, development of chest pain or shortness of breath, or any other acute concerns. Medical Decision Making 64-year-old female referred from outpatient ultrasound. She had been seen in the emergency department last night and diagnosed with a broken toe. She has a thrombin deficiency and had noted calf swelling as well and outpatient ultrasound was ordered. This study reveals a venous thrombosis of the peroneal veins of the right leg. Patient has not had any chest pain she has been feeling well. She has had 2 superficial blood clots in the distant past for which she takes 81 mg of aspirin and has seen at the hematology department at [facility]. This is not a DVT but there is risk for propagation of the clot and formation of a DVT. She and I discussed the risk benefits of full anticoagulation which we will defer at this time. We will opt to treat with aspirin 325 mg daily and a follow-up lower extremity ultrasound in approximately 1 week's time. She may require ongoing surveillance of indeterminant distal vein thrombus for up to 2 weeks. We will make her a follow-up appointment in primary care clinic and she is stable for discharge to home at this time. HPI General Mode of arrival: ambulatory . Date/Time Provider Initiated Documentation: 02/21/20 11:16 . Limitations to Documentation: no limitations . Information obtained by: patient . History of Present Illness 64 year old F presents to the emergency department with the chief complaint of Question DVT right leg, Quality is described as dull and constant, and is localized to the right and lower extremity. Patient reports no radiation. Patient started experiencing this day(s) and it has been constant. No relieving factors improve symptom(s), No exacerbating factors reported . Patient notes denies chest pain and shortness of breath. Patient did receive the following treatments prior to arrival, none Related Data Home Medications Medication Instructions Recorded Confirmed epinephrine 0.3 mg IJ PRN PRN 06/26/12 02/21/20 levothyroxine 75 mcg PO DAILY tab-cap 10/17/13 02/21/20 aspirin 81 mg tablet,delayed 81 mg PO DAILY 06/08/18 02/21/20 release rizatriptan 10 mg disintegrating 10 mg PO ONCE PRN tab 06/08/18 02/21/20 tablet clobetasol 0.05 % topical cream 1 applic TP BID PRN 08/20/18 02/21/20 pantoprazole 20 mg tablet,delayed 20 mg PO DAILY PRN 08/20/18 02/21/20 release triamcinolone acetonide 0.1 % 1 applic TP BID PRN 08/20/18 02/21/20 topical cream Allergies Allergy/AdvReac Type Severity Reaction Status Date / Time venom-honey bee Allergy Intermediate unknown Verified 02/20/20 17:16 [bee venom (honey bee)] Sulfa (Sulfonamide Allergy unknown Verified 02/20/20 17:16 Antibiotics) wasps Allergy Uncoded 02/20/20 17:17 General Stated Complaint: Vascular DIANA: 4 Review of Systems Narrative: 6 systems reviewed and otherwise negative. No chest pain or shortness of breath. [facility] Medical History Acute hemorrhoid Costochondritis GERD (gastroesophageal reflux disease) Herpes simplex History of DVT of lower extremity Hypothyroidism Migraine Plantar fasciitis Prothrombin gene mutation Rectal bleed Tubular adenoma of colon 09/18/18 Dr Jazmín Berg, repeat colo 5 yrs Xerosis of skin Surgical History Rotator Cuff Repair Family History Father Personal history of malignant neoplasm Prostate CA Maternal Uncle Personal history of malignant neoplasm prostate CA Mother No problems noted. Other Diabetes Heart disease Social History Smoking/Tobacco Use Status: Never Smoking risk assessment performed?: Yes Alcohol Intake: current Alcohol Intake frequency: holidays/special occasions only Drug use: Never Substance use type: does not use Do you feel safe at home: Yes Do you feel safe in your relationship?: Yes Exam Narrative Exam Narrative: GEN: awake, alert, oriented 3. Pleasant, well groomed, interactive. HEAD: Normocephalic, atraumatic ENT: Mucous membranes moist, oropharynx unremarkable, External ear exam unremarkable EYES: PERRL, EOMI NECK: Full ROM, no ASHANTI, no menigismus CHEST/RESP: No respiratory distress EXT: Full ROM, no tenderness Neuro: Grossly normal neurologic exam, conversant, interactive. Psych: Speech fluent, thoughts congruent, affect normal Course Vital Signs Vital signs: Vital Signs Temperature 36.3 C L 02/21/20 11:15 Pulse 80 02/21/20 11:15 Respiratory Rate 19 02/21/20 11:15 Blood Pressure 136/84 02/21/20 11:15 Pulse Oximetry 100 02/21/20 11:15 Temperature 36.3 C L 02/21/20 11:15 Temperature Source Temporal Artery Scan 02/21/20 11:15 Pulse 80 02/21/20 11:15 Respiratory Rate 19 02/21/20 11:15 Respiratory Effort Non-Labored 02/21/20 11:21 Respiratory Depth Normal 02/21/20 11:21 Respiratory Pattern Normal 02/21/20 11:21 Blood Pressure 136/84 02/21/20 11:15 Blood Pressure Position Sitting 02/21/20 11:15 Pulse Oximetry 100 02/21/20 11:15 Oxygen Delivery Method Room Air 02/21/20 11:15 Oxygen Flow Rate 0 02/21/20 11:15
--- NOTE | 2020-02-21 11:36 | NUR.NOTE ---
referral faxed to [facility]- param Narayanan Note:
== END 2020-02-21 11:49 | disposition home or self-care (01) ==
PROVIDERS: Emergency Provider Emergency Medicine; PCP Nurse Practitioner Family
DX: I82.451 Acute embolism and thrombosis of right peroneal vein (principal); D68.52 Prothrombin gene mutation; Z71.2 Person consulting for explanation of examination or test findings; Z86.718 Personal history of other venous thrombosis and embolism
CPT/HCPCS: 99282

== ENCOUNTER 2020-03-02 01:26 | Outpatient (CLI) | payer MEDICAID, SELFPAY ==
--- NOTE | 2020-03-02 | DI.US_ITS ---
EXAM: US LOWER EXTREMITY VENOUS RT CLINICAL HISTORY: RT PERONEAL VEIN THROMBOSIS, I82.591, F/U TECHNIQUE: Grayscale, color, and doppler imaging of the deep venous system of right lower extremity was performed. COMPARISON: US US LOWER EXTREMITY VENOUS RT from 02/21/2020 FINDINGS: There is no evidence of intraluminal thrombus and there is normal compression and augmentation demons trated within the common femoral vein, femoral veis, and popliteal vein.. However, there is again noted intraluminal thrombus within both peroneal veins at the mid and distal calf level. This is comprised of greater than 4 centimetres length of thrombus within both peroneal veins. Slight decrease in length of the thrombus when compared to the prior recent study listed abov e. The visualized ipsilateral posterior tibial veins remain patent. The ipsilateral greater saphenous vein also appear patent as does the saphenofemoral junction. IMPRESSION: 1. There is still intraluminal thrombus within both peroneal veins, as previously described. Edye r, this has slightly decreased in length. 2. No evidence of intraluminal thrombus at and above the knee level. DATA REPOSITORY:
== END 2020-03-02 01:46 ==
PROVIDERS: PCP Nurse Practitioner Family; Visit Provider Nurse Practitioner Family
DX: I82.451 Acute embolism and thrombosis of right peroneal vein (principal)
CPT/HCPCS: 93971

== ENCOUNTER 2020-03-09 01:24 | Outpatient (CLI) | payer MEDICAID, SELFPAY ==
--- NOTE | 2020-03-09 | DI.US_ITS ---
EXAM: US LOWER EXTREMITY VENOUS RT CLINICAL HISTORY: F/U RT PERONEAL VEIN THROMBOSIS,I82.591 TECHNIQUE: Grayscale, color, and doppler imaging of the deep venous system of the right lower extrem ity was performed. US US LOWER EXTREMITY VENOUS RT from 03/02/2020 FINDINGS: There is no evidence of intraluminal thrombus and there is normal compression and augmentation demons trated within the common femoral veins, femoral veins, and popliteal vein. In the calf the previously described thrombus within the peroneal vein is again noted. Other visuali zed calf veins appear patent. The greater saphenous veins also appear patent as does the saphenofemoral junction. IMPRESSION: 1. There is persistent DVT in the calf within the peroneal veins, as evident on the prior studies. 2. No evidence of DVT above the level of the knee. DATA REPOSITORY:
== END 2020-03-09 01:44 ==
PROVIDERS: PCP Nurse Practitioner Family; Visit Provider Nurse Practitioner Family
DX: I82.451 Acute embolism and thrombosis of right peroneal vein (principal)
CPT/HCPCS: 93971

== ENCOUNTER 2020-03-26 14:03 | Outpatient (REF) | payer MEDICAID, SELFPAY ==
[2020-03-26 16:16] LABS: HCT 40.7 % (36.0-46.0); HGB 13.2 g/dL (11.2-15.7); MCH 29.2 pg (27.0-33.0); MCHC 32.4 % (32.0-36.0); MPV 11.1 fL (8.0-11.0); Platelet Count 265 10^3/uL (130-400); RBC 4.52 10^6/uL (3.93-5.22); RDW 13.3 % (11.7-14.6); RDW-SD 44.1 fL; WBC 5.78 10^3/uL (4.4-10.8)
[2020-03-26 16:34] LABS: ALT 31 U/L (14-59); AST 19 U/L (15-37); Albumin 3.6 g/dL (3.4-5.0); Alkaline Phosphatase 107 U/L (46-116); Anion Gap 10.4 mmol/L (3-11); BUN 20 mg/dL (7-18); Bilirubin, Total 0.4 mg/dL (0.2-1.0); CO2 23.6 mmol/L (21.0-32.0); Calcium 9.1 mg/dL (8.5-10.1); Calculated LDL 193 mg/dL (<100); Chloride 108 mmol/L (98-107); Cholesterol 293 mg/dL (<200); Glucose 105 mg/dL (74-106); HDL Cholesterol 88 mg/dL (40-60); Potassium 4.1 mmol/L (3.5-5.1); Sodium 142 mmol/L (136-145); Total Protein 6.7 g/dL (6.4-8.2); Triglyceride 63 mg/dL (<150)
[2020-03-26 16:57] LABS: Bilirubin, Direct 0.06 mg/dL (0.00-0.20)
== END 2020-03-26 14:23 ==
LOC: NCHCN 14:03
PROVIDERS: PCP Nurse Practitioner Family; Visit Provider Nurse Practitioner Family
DX: I82.591 Chronic embolism and thrombosis of other specified deep vein of right lower extremity (principal); Z79.01 Long term (current) use of anticoagulants
CPT/HCPCS: 80048; 80061; 80076; 85027

== ENCOUNTER 2020-03-30 01:37 | Outpatient (CLI) | payer MEDICAID, SELFPAY ==
--- NOTE | 2020-03-30 | DI.US_ITS ---
EXAM: US LOWER EXTREMITY VENOUS RT CLINICAL HISTORY: F/U RT PERONEAL VEIN THROMBOSIS, I82.591 TECHNIQUE: Grayscale, color, and doppler imaging of the deep venous system of the lower extremity w as performed. COMPARISON: US US LOWER EXTREMITY VENOUS RT from 03/09/2020 FINDINGS: There is no evidence of intraluminal thrombus and there is normal compression and augmentation demons trated within the common femoral veis, femoral veis, and popliteal vein. In the right calf there is again noted thrombus within the peroneus vein. Clot distance approximatel y 3.8 centimetres. This is at the mid calf level. The more proximal and more distal peroneus veins are compressible and presumed patent. Ipsilateral greater saphenous vein is patent throughout its length. IMPRESSION: 1. There is persistent DVT in the calf involving the mid aspect of the peroneus vein. Clot length i s 3.8 centimetres which is similar to the study of 03/02/2020 but shorter than the original study per formed 02/21/2020 (9.8 centimeter length at that time). 2. There is no evidence of DVT above the level of the knee. No evidence of superficial thrombophlebitis. DATA REPOSITORY:
== END 2020-03-30 01:57 ==
PROVIDERS: PCP Nurse Practitioner Family; Visit Provider Nurse Practitioner Family
DX: I82.451 Acute embolism and thrombosis of right peroneal vein (principal)
CPT/HCPCS: 93971

== ENCOUNTER 2020-05-12 01:31 | Outpatient (CLI) | payer MEDICAID, SELFPAY ==
--- NOTE | 2020-05-12 16:24 | DI.MAMMO_ITS ---
EXAM: MG MAMMO SCREENING CLINICAL HISTORY: [facility], Z00.00 TECHNIQUE: Bilateral full field digital CC and MLO mammographic images were obtained with 3D tomosyn thesis and utilizing computer aided detection (CAD). COMPARISON: Available for comparison. FINDINGS: Masses/Architectural Distortion: None seen. Microcalcifications: No suspicious pleomorphic-type are seen. Skin Thickening/Nipple Retraction: None. IMPRESSION: 1. No significant interval change with no specific features of malignancy noted. 2. Unless there is more urgent need, screening mammography is recommended, as per [employer] guidelines. BI-RADS Category 1 - Negative Breast Density - Category B - Scattered areas of fibroglandular density Breast density category C or D implies that the patient has dense breast tissue. Dense breast tissue is very common and is not abnormal but dense breast tissue can make it harder to find cancer on a ma mmogram. Also, dense breast tissue may increase their breast cancer risk. This information about the result of the mammogram report was provided to the patient to raise their awareness. Use this report when you speak with the patient about their risks for breast cancer, which includes their family hist ory. At that time, you may recommend for more screening tests (Ultrasound or MRI) as they might be us eful based on their risk. A negative radiographic report should not delay biopsy if a dominant or clinically suspicious mass is present. Up to ten percent of cancers are not identified on mammography. A negative report may reinforce clinical impression. Adenosis and dense breasts may obscure an underlying neoplasm. False positive reports average 6 to 10%. Patient will receive a letter notifying them of these results.
== END 2020-05-12 01:51 ==
PROVIDERS: PCP Nurse Practitioner Family; Visit Provider Nurse Practitioner Family
DX: Z12.31 Encounter for screening mammogram for malignant neoplasm of breast (principal)
CPT/HCPCS: 77063; 77067

== ENCOUNTER 2020-06-08 16:32 | Outpatient (REF) | payer MEDICAID, SELFPAY ==
[2020-06-08 19:18] LABS: ALT 24 U/L (14-59); AST 15 U/L (15-37); HDL Cholesterol 71 mg/dL (40-60); LDL CHOLESTEROL 72 mg/dL (<100)
[2020-06-08 19:31] LABS: Creatine Kinase 79 U/L (26-192)
== END 2020-06-08 16:33 | disposition home or self-care (01) ==
LOC: NCHCN 16:32
PROVIDERS: PCP Nurse Practitioner Family; Visit Provider Nurse Practitioner Family
DX: E78.5 Hyperlipidemia, unspecified (principal); I82.591 Chronic embolism and thrombosis of other specified deep vein of right lower extremity
CPT/HCPCS: 82550; 83721; 83718; 84450; 84460

== ENCOUNTER 2020-09-02 09:03 | Outpatient (REF) | payer MEDICAID, SELFPAY ==
[2020-09-02 14:31] LABS: FREE T4 1.58 ng/dL (0.76-1.46); TSH 2.26 uIU/mL (0.36-3.74)
== END 2020-09-02 09:04 | disposition home or self-care (01) ==
LOC: NCHCN 09:03
PROVIDERS: PCP Nurse Practitioner Family; Visit Provider Nurse Practitioner Family
DX: E03.9 Hypothyroidism, unspecified (principal)
CPT/HCPCS: 84439; 84443

== ENCOUNTER 2021-02-23 11:53 | Outpatient (CLI) | payer MEDICAID, SELFPAY ==
--- NOTE | 2021-02-23 | DI.RAD_ITS ---
Exam(s) XR HAND RT COMPLETE EXAM: XR HAND RT COMPLETE CLINICAL HISTORY: RT HAND PAIN, M79.641. TECHNIQUE: 2D digital imaging was performed of the right hand. Three images were obtained. AP, late ral and oblique views were obtained. COMPARISON: No exams were available for comparison FINDINGS: BONES: No acute fracture is present. No bony destructive lesion is seen. JOINTS: No dislocation present. Budg-hw-mxpthbnf degenerative changes are seen in the hand with joint space narrowing and periarticular spurring predominantly involving the interphalangeal joints. The findings are most marked at the index and middle fingers. SOFT TISSUE: Normal. IMPRESSION: Ubmj-bt-[id number] degenerative changes of the right hand. DATA REPOSITORY: RADIATION DOSE DELIVERED:
== END 2021-02-23 12:13 ==
PROVIDERS: PCP Nurse Practitioner Family; Visit Provider Nurse Practitioner Family
DX: M79.641 Pain in right hand (principal); M19.041 Primary osteoarthritis, right hand
CPT/HCPCS: 73130

== ENCOUNTER 2021-04-13 17:24 | Outpatient (REF) | payer MEDICAID, SELFPAY ==
[2021-04-13 20:13] LABS: ALT 43 U/L (14-59); AST 23 U/L (15-37); HDL Cholesterol 109 mg/dL (40-60); LDL CHOLESTEROL 85 mg/dL (<100)
[2021-04-13 20:33] LABS: Creatine Kinase 121 U/L (26-192)
== END 2021-04-13 17:25 | disposition home or self-care (01) ==
LOC: NCHCN 17:24
PROVIDERS: PCP Nurse Practitioner Family; Visit Provider Nurse Practitioner Family
DX: E78.5 Hyperlipidemia, unspecified (principal)
CPT/HCPCS: 82550; 83721; 83718; 84450; 84460

== ENCOUNTER 2021-06-21 14:53 | Outpatient (REF) | payer MEDICAID, SELFPAY ==
[2021-06-21 19:38] LABS: Abs Immature Grans 0.02 10^3/uL (0.0-0.06); Absolute Basophil Count 0.05 10^3/uL (0.0-0.2); Absolute Eosinophil Count 0.11 10^3/uL (0.0-0.7); Absolute Lymphocyte Count 2.45 10^3/uL (1.2-3.4); Absolute Neutrophil Count 3.85 10^3/uL (1.2-6.7); Basophils % 0.7; Eosinophils % 1.6; HCT 43.4 % (36.0-46.0); HGB 13.7 g/dL (11.2-15.7); Immature Grans % 0.3; Lymphocytes % 34.6; MCH 29.2 pg (27.0-33.0); MCHC 31.6 % (32.0-36.0); MCV 92.5 fL (80-95); MPV 11.5 fL (8.0-11.0); Monocytes % 8.5; Neutrophils % 54.3; Platelet Count 263 10^3/uL (130-400); RBC 4.69 10^6/uL (3.93-5.22); RDW 13.1 % (11.7-14.6); WBC 7.08 10^3/uL (4.4-10.8)
[2021-06-21 20:07] LABS: ALT 27 U/L (14-59); AST 17 U/L (15-37); Alkaline Phosphatase 103 U/L (46-116); Anion Gap 9.6 mmol/L (3-11); BUN 20 mg/dL (7-18); Bilirubin, Total 0.4 mg/dL (0.2-1.0); CO2 24.4 mmol/L (21.0-32.0); CREATININE 0.7 mg/dL (0.55-1.02); Calcium 9.4 mg/dL (8.5-10.1); Chloride 106 mmol/L (98-107); Glucose 91 mg/dL (74-106); Potassium 4.3 mmol/L (3.5-5.1); Sodium 140 mmol/L (136-145); TSH 0.85 uIU/mL (0.36-3.74); Total Protein 7.2 g/dL (6.4-8.2)
== END 2021-06-21 14:54 | disposition home or self-care (01) ==
LOC: NCHCN 14:53
PROVIDERS: PCP Nurse Practitioner Family; Visit Provider Physician Assistant Medical
DX: E03.9 Hypothyroidism, unspecified (principal); R07.89 Other chest pain; K80.20 Calculus of gallbladder without cholecystitis without obstruction
CPT/HCPCS: 80053; 84443; 85025

== ENCOUNTER → 2021-07-27 01:37 | Outpatient (CLI) | payer MEDICAID, SELFPAY ==
--- NOTE | 2021-07-27 07:30 | DI.MAMMO_ITS ---
Exam(s) MAMMO SCREENING EXAM: MAMMO SCREENING CLINICAL HISTORY: SCREENING, Z12.31 TECHNIQUE: Mammograms were interpreted according to the usual protocol including computer analysis w [employer] CAD system, tomosynthesis and C-view imaging. COMPARISON: FINDINGS: The breasts are of moderate density with fairly symmetrical distribution of fibroglandular tissue. N o dominant mass or clumped microcalcification is identified in either breast. The current examinatio n is compared with previous examinations including May 2020 and there has been no gross interval ch maggie in appearance in comparison with the prior studies. IMPRESSION: No specific evidence of malignancy at this time. Routine screening examinations are suggested at yea rly intervals in this age group according to the ACS ACR guidelines. BI-RADS Category 1 - Negative Breast Density - Category B - Scattered areas of fibroglandular density
== END ==
PROVIDERS: PCP Nurse Practitioner Family; Visit Provider Nurse Practitioner Family
DX: Z12.31 Encounter for screening mammogram for malignant neoplasm of breast (principal)
CPT/HCPCS: 77063; 77067

== ENCOUNTER 2022-03-08 13:14 | Emergency (ER) | payer MEDICAID, SELFPAY ==
[2022-03-08 13:21] VITALS: BP 126/91; PULSE 66; RESP 18; TEMP 37; O2SAT 98
--- NOTE | 2022-03-08 13:31 | W.ED.GENAD ---
Discharge Plan Disposition Patient Disposition: Home Condition: Improving Discharge Details Clinical Impression: Contusion of right chest wall Primary Care Provider: Zeynep Dolan ED Provider: Mark Anthony Roberts Home Meds and New Rx's Prescriptions: Continued rizatriptan [Maxalt-COAGULATING BATH OPERATOR] 10 mg tablet,disintegrating 10 mg PO ONCE PRN (Reason: migraine headache) aspirin [Adult Aspirin Regimen] 81 mg tablet,delayed release (DR/EC) 81 mg PO DAILY clobetasol 0.05 % cream 1 applic TP BID PRN pantoprazole [Protonix] 20 mg tablet,delayed release (DR/EC) 20 mg PO DAILY PRN triamcinolone acetonide 0.1 % cream 1 applic TP BID PRN levothyroxine 75 MCG tablet 75 mcg PO DAILY epinephrine 0.3 MG/SYR auto-injector 0.3 mg IJ PRN PRN aspirin 325 mg tablet 325 mg PO DAILY Qty: 30 0RF Discharge Instructions Instructions: Contusion in Adults (ED) Additional Instructions: You may develop bruising over the affected area. May increase your aspirin to 325 mg as we discussed. You may apply ice or cool compress to area 20 to 30 minutes at a time to reduce discomfort. Return if you develop a fever, shortness of breath, or any other acute concerns. Medical Decision Making This is a 66-year-old female presents from home with right rib pain that started yesterday when she was leaning over a metal recycling bin, dropped her keys and lunged to get them. She was not injured in any other way. She has had no abdominal pain, nausea or vomiting. Pain is somewhat worse with movement. It is reproducible on exam. Must exclude underlying rib fracture. Do not find evidence that the patient has a visceral injury of the abdomen. Patient referred for chest x-ray with rib views. No obvious rib fracture. Consistent with contusion. Discussed with patient home management. HPI General Mode of arrival: ambulatory. Date/Time Provider Initiated Documentation: 03/08/22 13:16. Limitations to Documentation: no limitations. Information obtained by: patient. History of Present Illness 66 year old F presents to the emergency department with the chief complaint of Right lower rib pain, described as moderate, Quality is described as dull and constant, and is localized to the chest and right. Patient reports no radiation. Patient started experiencing this hour(s) and it has been constant. Rest improves symptom(s), Movement worsens symptoms and Other factors that worsen symptoms (Coughing) . Patient notes denies shortness of breath, syncope and weakness. Patient did receive the following treatments prior to arrival, none Related Data Home Medications Medication Instructions Recorded Confirmed epinephrine 0.3 mg/0.3 mL 0.3 mg IJ PRN PRN 06/26/12 03/08/22 injection, auto-injector levothyroxine 75 mcg tablet 75 mcg PO DAILY 10/17/13 03/08/22 aspirin 81 mg tablet,delayed 81 mg PO DAILY 06/08/18 03/08/22 release (Adult Aspirin Regimen) rizatriptan 10 mg disintegrating 10 mg PO ONCE PRN migraine headache 06/08/18 03/08/22 tablet (Maxalt-COAGULATING BATH OPERATOR) clobetasol 0.05 % topical cream 1 applic topical BID PRN 08/20/18 03/08/22 pantoprazole 20 mg tablet,delayed 20 mg PO DAILY PRN 08/20/18 03/08/22 release (Protonix) triamcinolone acetonide 0.1 % 1 applic topical BID PRN 08/20/18 03/08/22 topical cream aspirin 325 mg tablet 325 mg PO DAILY #30 tabs 02/21/20 03/08/22 Previous Rx's Medication Instructions Recorded aspirin 325 mg tablet 325 mg PO DAILY #30 tabs 02/21/20 Allergies Allergy/AdvReac Type Severity Reaction Status Date / Time venom-honey bee Allergy Intermediate unknown Verified 02/20/20 17:16 [bee venom (honey bee)] Sulfa (Sulfonamide Allergy unknown Verified 03/08/22 13:24 Antibiotics) wasps Allergy Uncoded 03/08/22 13:24 General Stated Complaint: Chest/Rib DIANA: 4 Review of Systems Narrative: No nausea or abdominal pain. No difficulty breathing. No bruising. 6 systems were reviewed and otherwise negative PFSH All Active Problems (Updated 03/08/22 @ 14:29 by Mark Anthony Roberts MD) Contusion of right chest wall (Acute) Abnormal CT scan, colon (Acute) There is some questionable thickening of the wall of the rectum. Otherwise no localized bowel abnormality is suggested. The bladder is intact. The reproductive organs as visualized are intact. There is no evidence of free air or free fluid in the intraperitoneal space. There is no evidence of an acute bony abnormality. SUMMARY: No evidence of hydronephrosis. No evidence of renal pathology. There is a question regarding bowel wall thickening in the region of the distal sigmoid and rectum. If there is any further clinical question, endoscopic correlation is suggested. Medical History Acute hemorrhoid Costochondritis GERD (gastroesophageal reflux disease) Herpes simplex History of DVT of lower extremity Hypothyroidism Migraine Plantar fasciitis Prothrombin gene mutation Rectal bleed Tubular adenoma of colon 09/18/18 Dr Jazmín Berg, repeat colo 5 yrs Xerosis of skin Surgical History Rotator Cuff Repair Family History Father Personal history of malignant neoplasm Prostate CA Maternal Uncle Personal history of malignant neoplasm prostate CA Mother No problems noted. Other Diabetes Heart disease Social History Smoking/Tobacco Use Status: Never Smoking risk assessment performed?: Yes Alcohol Intake: current Alcohol Intake frequency: holidays/special occasions only Drug use: Never Substance use type: does not use Do you feel safe at home: Yes Do you feel safe in your relationship?: Yes Exam Narrative Exam Narrative: GEN: awake, alert, oriented 3. Pleasant, well groomed, interactive. HEAD: Normocephalic, atraumatic EYES: PERRL, EOMI NECK: Full ROM, no ASHANTI, no menigismus CHEST/RESP: Tender overlying right lower anterior rib margin, clear to auscultation bilateral, no wheeze/rhonchi/rales CARDIOVASCULAR: RRR, no murmur, rub lizett. 2+ Rad pulse bilateral ABDOMEN: Soft, nontender, no mass. +Bowel sounds EXT: Full ROM, no edema, no rash Neuro: Grossly normal neurologic exam, conversant, interactive. Psych: Speech fluent, thoughts congruent, affect normal Course Vital Signs Vital signs: Vital Signs Temperature 37.0 C 03/08/22 13:21 Pulse 66 03/08/22 13:21 Respiratory Rate 18 03/08/22 13:21 Blood Pressure 126/91 H 03/08/22 13:21 Pulse Oximetry 98 03/08/22 13:21 Temperature 37.0 C 03/08/22 13:21 Temperature Source Temporal Artery Scan 03/08/22 13:21 Pulse 66 03/08/22 13:21 Respiratory Rate 18 03/08/22 13:21 Respiratory Effort Non-Labored 03/08/22 13:29 Respiratory Depth Normal 03/08/22 13:26 Respiratory Pattern Normal 03/08/22 13:26 Blood Pressure 126/91 H 03/08/22 13:21 Blood Pressure Position Sitting 03/08/22 13:21 Pulse Oximetry 98 03/08/22 13:21 Oxygen Delivery Method Room Air 03/08/22 13:21 Oxygen Flow Rate 0 03/08/22 13:21
--- NOTE | 2022-03-08 13:49 | DI.RAD_ITS ---
Exam(s) XR RIBS LT W PA LAT CHEST EXAM: XR RIBS LT W PA LAT CHEST CLINICAL HISTORY: Lower anterior rib pain. TECHNIQUE: 2D digital imaging was performed. COMPARISON: CR CHEST 2 VIEWS PA,LAT from 06/26/2012 FINDINGS: Six views total: Four views left ribs: No obvious left rib fractures nor rib lesions. Chest x-ray-2 views: Heart size normal. Mediastinum is not widened. There is a bidirectional scolio sis which was not evident in 2013. No infiltrates nor pleural effusions. No pneumothorax. No pulmonary edema. No lung contusion. IMPRESSION: No obvious left rib fractures. No acute pulmonary findings. Scoliosis now evident. DATA REPOSITORY: RADIATION DOSE DELIVERED:
--- NOTE | 2022-03-08 14:06 | DI.RAD_ITS ---
Exam(s) XR RIBS ONLY RT EXAM: XR RIBS ONLY RT CLINICAL HISTORY: fall TECHNIQUE: 2D digital imaging was performed. COMPARISON: CR XR RIBS LT W PA LAT CHEST from 03/08/2022 FINDINGS: RIBS 3 VIEWS-RIGHT There are no obvious acute RIGHT rib fractures evident. No lytic rib lesions identified. Bidirectional thoracolumbar scoliosis is noted. IMPRESSION: 1. No obvious rib fractures evident. Also no significant rib lesions. 2. No ipsilateral lung nor pleural abnormality evident. No pneumothorax. DATA REPOSITORY: RADIATION DOSE DELIVERED:
== END 2022-03-08 14:44 | disposition home or self-care (01) ==
PROVIDERS: Emergency Provider Emergency Medicine; PCP Nurse Practitioner Family
DX: S20.211A Contusion of right front wall of thorax, initial encounter (principal); E03.9 Hypothyroidism, unspecified; Z86.718 Personal history of other venous thrombosis and embolism; Z79.82 Long term (current) use of aspirin; X58.XXXA Exposure to other specified factors, initial encounter; Y92.009 Unspecified place in unspecified non-institutional (private) residence as the place of occurrence of the external cause
CPT/HCPCS: 99283; 71046; 71100; 99282

== ENCOUNTER 2022-05-30 15:49 | Outpatient (REF) | payer MEDICAID, SELFPAY ==
[2022-05-30 17:18] LABS: HCT 40.3 % (36.0-46.0); HGB 13.3 g/dL (11.2-15.7); MCH 29.6 pg (27.0-33.0); MCV 90 fL (80-95); MPV 11.1 fL (8.0-11.0); Platelet Count 284 10^3/uL (130-400); RBC 4.49 10^6/uL (3.93-5.22); RDW 13.8 % (11.7-14.6); RDW-SD 45.6 fL; WBC 5.45 10^3/uL (4.4-10.8)
[2022-05-30 17:24] LABS: CREATININE 0.7 mg/dL (0.55-1.02); Estimated GFR 95.92 (mL/min/1.73m2); HDL Cholesterol 95 mg/dL (40-60); LDL CHOLESTEROL 134 mg/dL (<100)
[2022-05-30 19:21] LABS: ALT 29 U/L (14-59); AST 21 U/L (15-37); Albumin 3.4 g/dL (3.4-5.0); Alkaline Phosphatase 112 U/L (46-116); BUN 18 mg/dL (7-18); Bilirubin, Total 0.6 mg/dL (0.2-1.0); Calcium 9.2 mg/dL (8.5-10.1); Chloride 108 mmol/L (98-107); Creatine Kinase 80 U/L (26-192); FREE T4 1.62 ng/dL (0.76-1.46); Glucose 88 mg/dL (74-106); Potassium 4.5 mmol/L (3.5-5.1); Sodium 143 mmol/L (136-145); TSH 1.12 uIU/mL (0.36-3.74); Total Protein 6.7 g/dL (6.4-8.2)
== END 2022-05-30 15:50 | disposition home or self-care (01) ==
LOC: NCHCN 15:49
PROVIDERS: PCP Nurse Practitioner Family; Visit Provider Nurse Practitioner Family
DX: E78.5 Hyperlipidemia, unspecified (principal); E03.9 Hypothyroidism, unspecified; R04.0 Epistaxis
CPT/HCPCS: 80053; 82550; 83721; 85027; 83718; 84439; 84443

== ENCOUNTER 2022-08-02 02:19 | Outpatient (CLI) | payer MEDICAID, SELFPAY ==
--- NOTE | 2022-08-02 | DI.MAMMO_ITS ---
Exam(s) MAMMO SCREENING EXAM: MAMMO SCREENING CLINICAL HISTORY: SCREENING FOR BREAST CANCER Z12.31. TECHNIQUE: Bilateral full field digital CC and MLO mammographic images were obtained with 3D tomosyn thesis and utilizing computer aided detection (CAD). COMPARISON: Prior mammograms were reviewed. FINDINGS: There has been no significant change in the appearance and distribution of the fibroglandular tissue. No CAD designations. There are no new spiculated masses nor malignant appearing microcalcification groups. There is no significant architectural distortion nor skin thickening-retraction. IMPRESSION: No radiographic evidence of malignancy. BI-RADS Category 1 - Negative Breast Density - Category B - Scattered areas of fibroglandular density Breast density Category C or D implies that the patient has dense breast tissue. Dense breast tissue can make it harder to find cancer on a mammogram. Dense breast tissue is also associated with an incr eased risk of breast cancer. This information about the result of the mammogram report was provided to the patient to raise their awareness. Use this report when you speak with the patient about their risks for breast cancer, which includes their family history. At that time, you may recommend additional screening tests (Ultrasoun d or MRI) as these tests may add significant information. A negative radiographic report should not delay biopsy if a dominant or clinically suspicious mass is present. Up to ten percent of cancers are not identified on mammography. A negative report may reinforce clinical impression. Adenosis and dense breasts may obscure an underlying neoplasm. False positive reports average 6 to 10%. Patient will receive a letter notifying them of these results.
== END 2022-08-02 02:39 ==
LOC: DI 02:19
PROVIDERS: PCP Nurse Practitioner Family; Visit Provider Nurse Practitioner Family
DX: Z12.31 Encounter for screening mammogram for malignant neoplasm of breast (principal)
CPT/HCPCS: 77063; 77067

== ENCOUNTER 2023-01-09 17:38 | Outpatient (REF) | payer MEDICAID, SELFPAY ==
[2023-01-09 19:39] LABS: ALT 33 U/L (14-59); AST 17 U/L (15-37); HDL Cholesterol 93 mg/dL (40-60); LDL CHOLESTEROL 83 mg/dL (<100)
[2023-01-09 20:00] LABS: Creatine Kinase 73 U/L (26-192)
== END 2023-01-09 17:39 | disposition home or self-care (01) ==
LOC: NCHCN 17:38
PROVIDERS: PCP Nurse Practitioner Family; Visit Provider Nurse Practitioner Family
DX: E78.5 Hyperlipidemia, unspecified (principal)
CPT/HCPCS: 82550; 83721; 83718; 84450; 84460

== ENCOUNTER 2023-03-30 16:07 | Emergency (ER) | payer MEDICAID, SELFPAY ==
[2023-03-30 16:09] VITALS: BP 134/83; PULSE 71; RESP 18; TEMP 36.6; O2SAT 98
--- NOTE | 2023-03-30 16:10 | ED.GENADUL_ITS ---
HPI General Mode of arrival: ambulatory . Date/Time Provider Initiated Documentation: 03/30/23 16:08 . Limitations to Documentation: no limitations . Information obtained by: patient . History of Present Illness 67 year old F presents to the emergency department with the chief complaint of Rib injury, described as moderate, with intensity rated at 6. Quality is described as aching, and is localized to the chest and right. Patient reports no radiation. Patient started experiencing this day(s) (2) and it has been constant. Immobilization improves symptom(s), Other factors that worsen symptoms (Cough, movement) . Patient notes no other symptoms.. Patient did receive the following treatments prior to arrival, NSAID Related Data Home Medications Medication Instructions Recorded Confirmed epinephrine 0.3 mg/0.3 mL 0.3 mg IJ PRN PRN 06/26/12 07/27/22 injection, auto-injector levothyroxine 75 mcg tablet 75 mcg PO DAILY 10/17/13 07/27/22 aspirin 81 mg tablet,delayed 81 mg PO DAILY 06/08/18 07/27/22 release (Adult Aspirin Regimen) rizatriptan 10 mg disintegrating 10 mg PO ONCE PRN migraine headache 06/08/18 07/27/22 tablet (Maxalt-ECOMMERCE MERCHANDISING MANAGER) clobetasol 0.05 % topical cream 1 applic topical BID PRN 08/20/18 07/27/22 pantoprazole 20 mg tablet,delayed 20 mg PO DAILY PRN 08/20/18 07/27/22 release (Protonix) triamcinolone acetonide 0.1 % 1 applic topical BID PRN 08/20/18 07/27/22 topical cream aspirin 325 mg tablet 325 mg PO DAILY #30 tabs 02/21/20 07/27/22 lidocaine 5 % topical patch 1 patch topical DAILY #15 ea 03/30/23 (Lidoderm) Previous Rx's Medication Instructions Recorded aspirin 325 mg tablet 325 mg PO DAILY #30 tabs 02/21/20 lidocaine 5 % topical patch 1 patch topical DAILY #15 ea 03/30/23 (Lidoderm) Allergies Allergy/AdvReac Type Severity Reaction Status Date / Time venom-honey bee Allergy Intermediate unknown Verified 03/30/23 16:13 [bee venom (honey bee)] Sulfa (Sulfonamide Allergy unknown Verified 03/30/23 16:13 Antibiotics) wasps Allergy Uncoded 03/30/23 16:13 General DIANA: 4 Review of Systems Constitutional Constitutional: Denies headache(s) and Denies weakness ENT Ears, Nose, Mouth, and Throat: Denies headache(s) and Denies neck pain Cardiovascular Cardiovascular: Reports chest pain (R sided chest wall) and Denies dyspnea Respiratory Respiratory: Denies cough and Denies dyspnea Gastrointestinal Gastrointestinal: Denies abdominal pain, Denies nausea and Denies vomiting Genitourinary Genitourinary: Denies dysuria Musculoskeletal Musculoskeletal: Denies back pain, Denies neck pain, Denies numbness, Reports stiffness and Denies tingling Integumentary/Breasts Skin/Breast: Denies rash Neurologic Neurologic: Denies headache(s), Denies numbness, Denies tingling and Denies weakness Exam Const General: cooperative, healthy appearing, comfortable and no acute distress Orientation: alert and awake HENWI Head: normal to inspection, normocephalic and atraumatic Face and sinus: normal facial exam Mouth: moist mucous membranes Eyes General: appearance normal, both eyes and all related structures Conjunctivae: conjunctivae normal Neck Neck: normal visual inspection, full ROM, trachea midline and supple Chest Chest: normal inspection of the chest, no crepitus and tenderness Chest/axillae images: 2 1. Mild discomfort to direct palpation. Skin is intact. No erythema, ecchymosis, swelling, obvious deformity or crepitus. Resp Effort & Inspection: normal respiratory effort and able to speak in complete sentences Auscultation: clear to auscultation bilaterally Cardio Rate: regular rate Rhythm: regular rhythm GI Inspection: normal to inspection Palpation: soft, not firm, no guarding, not rigid and nontender Skin General skin exam: no rashes or lesions noted Neuro General: patient alert, patient awake, moves all extremities and no focal motor deficits Cognition: normal cognition Gait: normal gait Sensory Exam: no sensory deficits noted Extrem General: normal to inspection and full ROM Psych Appearance: grossly normal Mental Status: mental status grossly normal Medical Decision Making This is a 67-year-old female who reports 2 days ago she was leaning over a wooden beam trying to reach something, while stretching forward and over the beam, the beam pressed deeply into her right anterior ribs just under her breast causing an injury. She was asymptomatic prior to that. Reports that the pain is mild at rest but worse with deep breathing, coughing, raising her right hand above her head. She tried ibuprofen today with little relief. Denies any other injury. No additional questions or concerns. Patient appears well, nontoxic. Vital signs are unremarkable. Low mechanism of injury. Extremely low suspicion for acute bony abnormality or pneumothorax. Abdomen is soft, nontender, no concern for intra-abdominal injury. Patient is requesting an x-ray. Also requesting analgesia, will provide Lidoderm patch X-ray ordered and reviewed by me, confirmed by radiology as negative. Discussed in length with patient. She has no additional questions or concerns. She is comfortable discharge, will provide prescription of Lidoderm patches. She will use [id number] Tylenol and Motrin as well as cool compresses. She was encouraged to watch for new or worsening symptoms and return to the ER for any concerns. Standard discharge and return precautions were provided. Patient understands, is agreeable to this plan, and has no additional questions or concerns upon discharge. This documentation was generated using [employer] system, please disregard any oddities of phrase or misspellings. Medical Records Medical records reviewed: Yes I reviewed the patient's medical records. Imaging Data Radiologic Study: Attestation: I personally reviewed and interpreted this imaging study as follows: Radiologist's impression: EXAM: XR CHEST 2V PA LATERAL CLINICAL HISTORY: R anterior rib injury TECHNIQUE: 2D digital imaging was performed. COMPARISON: CR XR RIBS LT W PA LAT CHEST from 03/08/2022 CR XR RIBS ONLY RT from 03/08/2022 FINDINGS: HEART: Normal size. Aorta: Not dilated. PULMONARY VASCULATURE: Normal. LUNGS: Clear. PLEURAL SPACE: No pleural effusion or pneumothorax. BONE: The lower ribs are not visible. Scoliosis. Upper vertebral bodies are not well seen. Soft tissues: Unremarkable. IMPRESSION: No acute abnormality. Quality:SDOH Health Related Social Needs: 2 No Data to Display PFSH All Active Problems (Updated 03/30/23 @ 17:17 by SAJI Mosqueda) Contusion of rib on right side (Acute) Abnormal CT scan, colon (Acute) There is some questionable thickening of the wall of the rectum. Otherwise no localized bowel abnormality is suggested. The bladder is intact. The reproductive organs as visualized are intact. There is no evidence of free air or free fluid in the intraperitoneal space. There is no evidence of an acute bony abnormality. SUMMARY: No evidence of hydronephrosis. No evidence of renal pathology. There is a question regarding bowel wall thickening in the region of the distal sigmoid and rectum. If there is any further clinical question, endoscopic correlation is suggested. Medical History Tubular adenoma of colon 09/18/18 Dr Jazmín Berg, repeat colo 5 yrs Herpes simplex Acute hemorrhoid GERD (gastroesophageal reflux disease) Costochondritis Plantar fasciitis Rectal bleed Xerosis of skin History of DVT of lower extremity Prothrombin gene mutation Hypothyroidism Migraine Surgical History Rotator Cuff Repair Family History Father Personal history of malignant neoplasm Prostate CA Maternal Uncle Personal history of malignant neoplasm prostate CA Mother No problems noted. Other Diabetes Heart disease Social History Smoking/Tobacco Use Status: Never Smoking risk assessment performed?: Yes Alcohol Intake: current Alcohol Intake frequency: holidays/special occasions only Drug use: Never Substance use type: does not use Housing: house Do you feel safe at home: Yes Do you feel safe in your relationship?: Yes Discharge Plan Disposition Patient Disposition: Home Condition: Stable Discharge Details Clinical Impression: Contusion of rib on right side Primary Care Provider: Zeynep Dolan ED Provider: Dwayne Garcia Home Meds and New Rx's Prescriptions: New lidocaine [Lidoderm] 5 % adhesive patch,medicated 1 patch topical DAILY Qty: 15 0RF Rx Instructions: leave on most painful area for up to 12 hrs Continued rizatriptan [Maxalt-ECOMMERCE MERCHANDISING MANAGER] 10 mg tablet,disintegrating 10 mg PO ONCE PRN (Reason: migraine headache) aspirin [Adult Aspirin Regimen] 81 mg tablet,delayed release (DR/EC) 81 mg PO DAILY clobetasol 0.05 % cream 1 applic TP BID PRN pantoprazole [Protonix] 20 mg tablet,delayed release (DR/EC) 20 mg PO DAILY PRN triamcinolone acetonide 0.1 % cream 1 applic TP BID PRN levothyroxine 75 MCG tablet 75 mcg PO DAILY epinephrine 0.3 MG/SYR auto-injector 0.3 mg IJ PRN PRN aspirin 325 mg tablet 325 mg PO DAILY Qty: 30 0RF Discharge Instructions Instructions: Rib Contusion (ED) Additional Instructions: X-ray does not reveal any rib fracture or pneumothorax. Lidoderm patches as directed. [id number] Tylenol and/or Motrin as directed for discomfort. Cool and/or warm compresses every 2 hours for 20 minutes. Gentle stretching as tolerated. Please watch for new or worsening symptoms and return to the ER for any concerns. Lastly, I recommend contacting your primary care provider tomorrow to make them aware of your ER visit, ongoing symptoms, and need for outpatient reevaluation.
--- NOTE | 2023-03-30 16:30 | DI.RAD_ITS ---
Exam(s) XR CHEST 2V PA LATERAL EXAM: XR CHEST 2V PA LATERAL CLINICAL HISTORY: R anterior rib injury TECHNIQUE: 2D digital imaging was performed. COMPARISON: CR XR RIBS LT W PA LAT CHEST from 03/08/2022 CR XR RIBS ONLY RT from 03/08/2022 FINDINGS: HEART: Normal size. Aorta: Not dilated. PULMONARY VASCULATURE: Normal. LUNGS: Clear. PLEURAL SPACE: No pleural effusion or pneumothorax. BONE: The lower ribs are not visible. Scoliosis. Upper vertebral bodies are not well seen. Soft tissues: Unremarkable. IMPRESSION: No acute abnormality. DATA REPOSITORY: RADIATION DOSE DELIVERED:
[2023-03-30] MEDS: Lidocaine 5% Patch 1 PATCH TP (17:06)
== END 2023-03-30 17:25 | disposition home or self-care (01) ==
PROVIDERS: Emergency Provider Physician Assistant; PCP Nurse Practitioner Family
DX: S20.211A Contusion of right front wall of thorax, initial encounter (principal); Z79.82 Long term (current) use of aspirin; X50.1XXA Overexertion from prolonged static or awkward postures, initial encounter; Y93.89 Activity, other specified; Y92.89 Other specified places as the place of occurrence of the external cause; Y99.0 Civilian activity done for income or pay
CPT/HCPCS: 99283; 71046

== ENCOUNTER 2023-05-02 17:30 | Outpatient (REF) | payer MEDICAID, SELFPAY ==
[2023-05-02 18:56] LABS: HCT 39.1 % (36.0-46.0); HGB 12.9 g/dL (11.2-15.7); MCH 29.6 pg (27.0-33.0); MCV 90 fL (80-95); MPV 10.7 fL (8.0-11.0); Platelet Count 270 10^3/uL (130-400); RBC 4.36 10^6/uL (3.93-5.22); RDW 13.2 % (11.7-14.6); RDW-SD 43.4 fL; WBC 6.03 10^3/uL (4.4-10.8)
[2023-05-02 19:18] LABS: FREE T4 1.74 ng/dL (0.76-1.46); TSH 2.99 uIU/Ml (0.36-3.74)
== END 2023-05-02 17:31 | disposition home or self-care (01) ==
LOC: NCHCN 17:30
PROVIDERS: PCP Nurse Practitioner Family; Visit Provider Nurse Practitioner Family
DX: E03.9 Hypothyroidism, unspecified (principal); Z86.718 Personal history of other venous thrombosis and embolism
CPT/HCPCS: 85027; 84439; 84443

== ENCOUNTER 2023-06-29 09:55 | Outpatient (REF) | payer MEDICARE, SELFPAY ==
[2023-06-29 21:47] LABS: FREE T4 1.98 ng/dL (0.76-1.46); TSH 0.83 uIU/Ml (0.36-3.74)
== END 2023-06-29 09:56 | disposition home or self-care (01) ==
LOC: NCHCN 09:55
PROVIDERS: PCP Nurse Practitioner Family; Visit Provider Nurse Practitioner Family
DX: E03.9 Hypothyroidism, unspecified (principal)
CPT/HCPCS: 84439; 84443

== ENCOUNTER 2024-01-04 13:48 | Emergency (ER) | payer MEDICARE, SELFPAY ==
[2024-01-04 13:55] VITALS: BP 115/74; PULSE 78; RESP 18; TEMP 37.2; O2SAT 97
--- NOTE | 2024-01-04 14:21 | ED.GENADUL_ITS ---
Discharge Plan Disposition Patient Disposition: Home Condition: Stable Discharge Details Chief Complaint: Orthopedic Clinical Impression: Injury of knee, right, Tick bite, History of deep vein thrombosis Primary Care Provider: Adeola Luna ED Provider: Marce Jiang Home Meds and New Rx's Prescriptions: No Action rizatriptan [Maxalt-MUD ANALYSIS WELL LOGGING OPERATOR] 10 mg tablet,disintegrating 10 mg PO ONCE PRN (Reason: migraine headache) aspirin [Adult Aspirin Regimen] 81 mg tablet,delayed release (DR/EC) 81 mg PO DAILY clobetasol 0.05 % cream 1 applic TP BID PRN pantoprazole [Protonix] 20 mg tablet,delayed release (DR/EC) 20 mg PO DAILY PRN triamcinolone acetonide 0.1 % cream 1 applic TP BID PRN levothyroxine 75 MCG tablet 75 mcg PO DAILY epinephrine 0.3 MG/SYR auto-injector 0.3 mg IJ PRN PRN aspirin 325 mg tablet 325 mg PO DAILY Qty: 30 0RF atorvastatin 10 mg tablet 10 mg PO DAILY Patient Comments: TAKE 1 TABLET BY MOUTH EVERY NIGHT lidocaine [Lidoderm] 5 % adhesive patch,medicated 1 patch topical DAILY Qty: 15 0RF Rx Instructions: leave on most painful area for up to 12 hrs Discharge Instructions Instructions: Knee Pain ED Additional Instructions: You were seen in the emergency department today for evaluation of a right knee injury. In our department a full physical examination performed, had imaging that showed no evidence of fracture, clot in your leg, or other concerning abnormality. You likely have a sprain and bad bruise, which should improve over time. You can continue to use topical treatments, can try Tylenol for other pain, and can use an Edmund wrap for support and compression. You also mentioned a tick bite with an engorged tick that you removed yesterday, for which she received a prophylactic dose of doxycycline. We did obtain tickborne studies, which you can follow-up on the results of in approximately 1 week. Please reach out to your primary care provider to discuss any other symptoms that change, worsen, or persist. Thank you for allowing us to be part of your care. HPI General Mode of arrival: ambulatory . Date/Time Provider Initiated Documentation: 01/04/24 13:53 . Limitations to Documentation: no limitations . Information obtained by: patient and old records reviewed . 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 The patient reports that approximately a week ago she was walking outside, turned too quickly and fell, striking her right knee against a rock on the ground. She was able to continue her work, has been able to bear weight, but has noted pain in her knee, most notable along the medial joint line. She states that she feels reproduction of pain in her patella whenever she puts pressure on the knee. No overlying skin breaks, patient states that she notes worsening pain with stairs. Additionally, the patient has noted over the last week that she has had some intermittent soreness/achiness in her calf and thigh. She states that she has a history of frequent DVTs after injuries, takes a baby aspirin at baseline and tends to increase this to a full dose aspirin when she has a clot. She states that she has taken apixaban in the past but ended up having some broken blood ve ssels and skin changes, for which her primary care told her she should not take that anymore. The patient did not injure any other part of her body during this event, does not have any sensory changes or weakness distal to the injury. She has no history of injury or surgical intervention to that extremity. Exam: Gen: Awake and alert, in no apparent distress HEENT: Non-icteric sclera Neck: Supple Lungs: No apparent respiratory distress, normal respiratory effort. CV: Appears well perfused Abdomen: Non-distended MSK: Moves 4 extremities without apparent limitation in ROM. The patient has s ome reproduction of pain with flexion of the affected right knee. She has tenderness to palpation over the patella, the medial and lateral joint lines. She has a mild joint effusion, no fullness of the popliteal fossa is palpable. She has no laxity with testing of the MCL or LCL, and Josefina's demonstrates a firm endpoint. She has no peripheral edema, significant calf tenderness or swelling distal to this injury. Skin: Visualized skin without rashes, cyanosis. Neuro: Normal Gait, no obvious focal deficits or facial asymmetry. Speaks in full, clear sentences. Psych: Appropriate for situation. MDM: This is a 68-year-old female patient presenting for evaluation of a right knee injury. My differential includes but is not limited to fracture, dislocation, sprain, strain. The patient reassuringly has no changes on her needs concerning for septic joint, gout. DVT was certainly considered given the patient's history and her intermittent calf and thigh symptoms. The patient is comfortable and not requiring of any medications for pain management. I will obtain an x-ray of the affected right knee, as well as an ultrasound of the right leg to evaluate for DVT ED Course: I independently interpreted the patient's imaging studies. The patient has no evidence of fracture, dislocation, or significant effusion to suggest ligamentous derangement not identified on physical examination. Additionally, her DVT ultrasound was negative for clot. I shared these findings with the patient and discussed conservative management including Edmund wrap, ice, topical therapies, and Tylenol. The patient shared with me a concern that she had removed in the engorged tick from her arm yesterday, and requested information about Lyme disease. Given the level of engorgement, and the patient's concern that it would attached for at least 36 hours, she does meet criteria for prophylaxis of line was provided with 200 mg of doxycycline here in the emergency department. I did send Lyme and tickborne illness studies per her request, which she can follow-up on in the outpatient environment. At this time, the patient has had a full medical evaluation and is safe for discharge to home. They are hemodynamically stable, ambulatory, and tolerating PO. They are understanding of the follow-up plan and return precautions. They left our facility without incident. Marce Jiang MD Related Data Home Medications ?Medication ?Instructions ?Recorded ?Confirmed epinephrine 0.3 mg/0.3 mL 0.3 mg IJ PRN PRN 06/26/12 01/04/24 injection, auto-injector levothyroxine 75 mcg tablet 75 mcg PO DAILY 10/17/13 01/04/24 aspirin 81 mg tablet,delayed 81 mg PO DAILY 06/08/18 01/04/24 release (Adult Aspirin Regimen) rizatriptan 10 mg disintegrating 10 mg PO ONCE PRN migraine headache 06/08/18 01/04/24 tablet (Maxalt-MUD ANALYSIS WELL LOGGING OPERATOR) clobetasol 0.05 % topical cream 1 applic topical BID PRN 08/20/18 01/04/24 pantoprazole 20 mg tablet,delayed 20 mg PO DAILY PRN 08/20/18 01/04/24 release (Protonix) triamcinolone acetonide 0.1 % 1 applic topical BID PRN 08/20/18 01/04/24 topical cream aspirin 325 mg tablet 325 mg PO DAILY #30 tabs 02/21/20 01/04/24 lidocaine 5 % topical patch 1 patch topical DAILY #15 ea 03/30/23 01/04/24 (Lidoderm) atorvastatin 10 mg tablet 10 mg PO DAILY 01/04/24 01/04/24 Previous Rx's ?Medication ?Instructions ?Recorded aspirin 325 mg tablet 325 mg PO DAILY #30 tabs 02/21/20 lidocaine 5 % topical patch 1 patch topical DAILY #15 ea 03/30/23 (Lidoderm) Allergies Allergy/AdvReac Type Severity Reaction Status Date / Time venom-honey bee (bee venom Allergy Intermediate unknown Verified 01/04/24 13:58 (honey bee)) Sulfa (Sulfonamide Allergy unknown Verified 01/04/24 13:58 Antibiotics) wasps Allergy unknown Uncoded 01/04/24 13:58 General Stated Complaint: Orthopedic DIANA: 4 Course Vital Signs Vital signs: Vital Signs Temperature 37.2 C 01/04/24 13:55 Pulse 78 01/04/24 13:55 Respiratory Rate 18 01/04/24 13:55 Blood Pressure 115/74 01/04/24 13:55 Pulse Oximetry 97 01/04/24 13:55 Temperature 37.2 C 01/04/24 13:55 Pulse 78 01/04/24 13:55 Respiratory Rate 18 01/04/24 13:55 Respiratory Effort Normal, Non-Labored 01/04/24 14:00 Blood Pressure 115/74 01/04/24 13:55 Blood Pressure Position Sitting 01/04/24 13:55 Pulse Oximetry 97 01/04/24 13:55 Oxygen Delivery Method Room Air 01/04/24 13:55 Oxygen Flow Rate 0 01/04/24 13:55 Medical Decision Making Quality:SDOH Health Related Social Needs: No Data to Display PFSH All Active Problems (Updated 01/04/24 @ 15:18 by Marce Jiang MD) History of deep vein thrombosis (Acute) Tick bite (Acute) Injury of knee, right (Acute) Eczema (Acute) Environmental allergies (Acute) Solar lentigo (Acute) Abnormal CT scan, colon (Acute) There is some questionable thickening of the wall of the rectum. Otherwise no localized bowel abnormality is suggested. The bladder is intact. The reproductive organs as visualized are intact. There is no evidence of free air or free fluid in the intraperitoneal space. There is no evidence of an acute bony abnormality. SUMMARY: No evidence of hydronephrosis. No evidence of renal pathology. There is a question regarding bowel wall thickening in the region of the distal sigmoid and rectum. If there is any further clinical question, endoscopic correlation is suggested. Medical History Tubular adenoma of colon 09/18/18 Dr Jazmín Berg, repeat colo 5 yrs Herpes simplex Acute hemorrhoid GERD (gastroesophageal reflux disease) Costochondritis Plantar fasciitis Rectal bleed Xerosis of skin History of DVT of lower extremity Prothrombin gene mutation Hypothyroidism Migraine Surgical History Rotator Cuff Repair Family History Father Personal history of malignant neoplasm Prostate CA Maternal Uncle Personal history of malignant neoplasm prostate CA Mother No problems noted. Other Diabetes Heart disease Social History Smoking/Tobacco Use Status: Never Smoking risk assessment performed?: Yes Alcohol Intake: current Alcohol Intake frequency: holidays/special occasions only Drug use: Never Substance use type: does not use Housing: house Do you feel safe at home: Yes Do you feel safe in your relationship?: Yes
--- OUTSIDE RECORDS SUMMARY | 2024-01-04 14:24 | XMS_ITS | Encounter Summary ---
Author Organization [facility] Address [address] [place] [address] Care Team Providers Care Community Outreach Manager Name Role Phone Alicia Brock MD Primary Care Provider [phone] Encounter Details Date Type Department Care Team (Latest Contact Info) Description 09/18/2018 11:46 EDT - 09/18/2018 23:59 EDT Hospital Encounter [address] [address] Unknown, Provider, Discharge Disposition: Home or Self Care Social History Tobacco Use Types Packs/Day Years Used Date Smoking Tobacco: Never Assessed Sex and Gender Information Value Date Recorded Sex Assigned at Not on file Gender Identity Not on file Sexual Orientation Not on file documented as of this encounter Discharge Disposition Disposition Code Departure Means Destination Home or Self Custodial documented in this encounter Plan of Treatment Not on file documented as of this encounter Visit Diagnoses Not on filedocumented in this encounter Care Teams Community Outreach Manager Relationship Specialty Start Date End Date Alicia Brock MD [address] [place] [id number] PCP - General 07/14/15 documented as of this encounter
--- OUTSIDE RECORDS SUMMARY | 2024-01-04 14:24 | XMS_ITS | Encounter Summary ---
Author Organization [facility] Address [address] [place] [address] Care Team Providers Care Survey Associate Name Role Phone Unavailable Primary Care Provider Unavailabl e Encounter Details Date Type Department Care Team (Late st Contact Info) Description 02/20/2008 Before PRISM Converted Visit (Maple) [facility] - Maple conversion [address] [place] [address] Juliet Mercer NP Social History Tobacco Use Types Packs/Day Years Used Date Smoking Tobacco: Never Assessed Sex and Gender Information Value Date Recorded Sex Assigned at Not on file Gender Identity Not on file Sexual Orientation Not on file documented as of this encounter Plan of Treatment Not on file documented as of this encounter Procedures Procedure Name Priority Date/Time Associated Diagnosis Comments HPV DETECTION, HIGH RISK TYPES Routine 02/20/2008 15:05 EST CYTOPATHOLOGY Routine 02/20/2008 0:00 EST documented in this encounter Results * HUMAN PAPILLOMA VIRUS DNA TEST (02/20/2008 15:05 EST) Specimen Description Cervix, ThinPrep vial [facility] Result Negative for HPV types 16, 18, 31, 33, 35, 39, 45, 51, 52, 56, 58, 59, and 68. [facility] Report Status Final 03/06/2008 [facility] 02/20/2008 15:0 5 EST 02/27/2008 8:59 EST Juliet Mercer NP MICROBIOLOGY - GENER AL ORDERABLES [facility] [address] [address] * CYTOPATHOLOGY (02/20/2008 0:00 EST) Pathology Report: CYTOPATHOLOGY REPORT ? Reports generated via electronic interface contain original data; ? however they are lacking the format of the original report. ? Caution should be taken when reading/interpreti ng unformatted reports. ? Name: ? ZHANE PARRA ? Accession #: ? [id number] ? : ? 1955 (Age: 52) ??F ?Collect Date: ? 02/20/2008 ? Location: ? [facility] ? Receive Date: ? 02/21/2008 ? Provider: ?JULIET M ARSEN SENIOR TRAINING SPECIALIST ? Copy to: ? Specimen/Source: ?Pap Test, Cervix/Endocervix, ThinPrep Imaging System ? with manual evaluation ? Last Menstrual Period: ? 12/04/08 ? Previous Gynecologic Pathology: ? Benign cellular changes: 03/01 ? Other: ? HPVDX - HPV testing requested regardless of diagnosis on current ThinPrep Pap ?? test. ? SPECIMEN ADEQUACY ? Satisfactory for Evaluation ? - transformation zone component present ? GENERAL CATEGORIZATION ? Negative for Intraepithelial Lesion or Malignancy ? Document reviewed and electronically signed by: ? Vargas Robledo, CT(ASCP) ? Report Date: ??02/26/2008 14:19 ? End of Report ? [facility] 02/20/2008 02/21/2008 Juliet Mercer SENIOR TRAINING SPECIALIST PATHOLOGY ORDERABLES [facility] [address] [place] [address] documented in this encounter Visit Diagnoses Not on filedocumented in this encounter
--- OUTSIDE RECORDS SUMMARY | 2024-01-04 14:24 | XMS_ITS | Encounter Summary ---
Author Organization [facility] Address [address] [place] [address] Care Team Providers Care Sound Recording Technician Name Role Phone Unknown, Provider Primary Care Provider Unava ilable Encounter Details Date Type Department Care Team (Latest Contact Info) Description 07/09/2015 17:02 EDT - 07/09/2015 23:59 EDT Hospital Encounter [address] [address] Unknown, ProviderMD Discharge Disposition: Home or Self Care Social History Tobacco Use Types Packs/Day Years Used Date Smoking Tobacco: Never Assessed Sex and Gender Information Value Date Recorded Sex Assigned at Not on file Gender Identity Not on file Sexual Orientation Not on file documented as of this encounter Discharge Disposition Disposition Code Departure Means Destination Home or Self [facility] documented in this encounter Plan of Treatment Not on file documented as of this encounter Visit Diagnoses Not on filedocumented in this encounter Care Teams Sound Recording Technician Relationship Specialty Start Date End Date Unknown, ProviderMD PCP - General 10/25/13 07/13/15 documented as of this encounter
--- OUTSIDE RECORDS SUMMARY | 2024-01-04 14:24 | XMS_ITS | Encounter Summary ---
Author Organization [facility] Address [facility] [place] [address] Care Team Providers Care Airline Reservationist Name Role Phone Zeynep Dolan APRN Primary Care Provider [phone] Encounter Details Date Type Department Care Team (Late st Contact Info) Description 03/13/2020 Orders [place] [address] Jacqueline Tan APRN [facility] [place] [address] Deep vein thrombosis (DVT) of calf muscle vein of right lower extremity, unspecified chronicity Social History Tobacco Use Types Packs/Day Years Used Date Smoking Tobacco: Never Sex and Gender Information Value Date Recorded Sex Assigned at Not on file Gender Identity Not on file Sexual Orientation Not on file documented as of this encounter Plan of Treatment Not on file documented as of this encounter Visit Diagnoses Diagnosis Deep vein thrombosis (DVT) of calf muscle vein of right lower extremity, unspecified chronicity documented in this encounter Care Teams Airline Reservationist Relationship Specialty Start Date End Date Zeynep Dolan APRN PCP - General Family Medicine 03/13/20 documented as of this encounter
--- OUTSIDE RECORDS SUMMARY | 2024-01-04 14:24 | XMS_ITS | Encounter Summary ---
[place] [address] Care Team Providers Care Technical Project Coordinator Name Role Phone Zeynep Dolan APRN Primary Care Provider [phone] Encounter Details Date Type Department Care Team (Late st Contact Info) Description 05/25/2020 12:30 PM EDT Tech [place] [address] Sofia Bello, [place] Acute deep vein thrombosis (DVT) of right peroneal vein Social History Tobacco Use Types Packs/Day Years Used Date Smoking Tobacco: Never Smokeless Tobacco: Never Sex and Gender Information Value Date Recorded Sex Assigned at Not on file Gender Identity Not on file Sexual Orientation Not on file documented as of this encounter Plan of Treatment Not on file documented as of this encounter Procedures Procedure Name Priority Date/Time Associated Diagnosis Comments DUPLEX FOR DVT, LEG, UNILAT Routine 05/25/2020 12:11 PM EDT Acute deep vein thrombosis (DVT) of right peroneal vein documented in this encounter Results * Duplex for DVT, Leg, Unilat (05/25/2020 12:11 PM EDT) VB Text Report Department: Vascular Surgery Lab Patient: [id number] (ZHANE PARRA) CPT: 17148 ICD10: I82.451;Z86.718 Referring Physician: DEBBIE RICHARDS ?? Indications: 65 year old female with history of RIGHT peroneal vein DVT on OSH study, ? DVT/establish in-house baseline ICD10 Diagnosis Code: I82.451, Z86.718 Findings: RIGHT: Non-occlusive thrombus in the paired peroneal veins from the proximal to mid/distal calf. The soleal vein is also thrombosed. Thrombus is of indeterminate age, however, more suggestive of subacute thrombus. Patent common femoral vein and popliteal vein with spontaneous, respirophasic Doppler waveforms that respond normally to augmentation maneuvers. The common femoral vein, saphenofemoral junction, femoral vein through the thigh and popliteal vein are fully compressible. Patent posterior tibial veins through the calf with no evidence of thrombus. Patent compressible gastrocnemius/intr amuscular veins in the upper calf/popliteal fossa. Interpretation: RIGHT: Non-occlusive deep vein thrombosis in the calf (peroneal veins) as well as occlusive intramuscular (soleal) vein thrombus in the calf of indeterminate age, suggestive of subacute thrombus. No evidence of femoral-popliteal or posterior tibial deep vein thrombosis. Notification: Debbie Richards MD was notified of the preliminary findings. Comparison: No previous study in our vascular lab database for comparison. Electronically Signed by: KYLE UP MD on 2020-05-28 10:38:46 AM [facility] VB Text Report End of Report [facility] 05/25/2020 12:1 1 PM EDT Debbie Richards MD VASCULAR ORDERABLES [facility] documented in this encounter Visit Diagnoses Diagnosis Acute deep vein thrombosis (DVT) of right peroneal vein documented in this encounter Care Teams Technical Project Coordinator Relationship Specialty Start Date End Date Zeynep Dolan APRN PCP - General Family Medicine 03/13/20 documented as of this encounter
--- OUTSIDE RECORDS SUMMARY | 2024-01-04 14:24 | XMS_ITS | Encounter Summary ---
Author Organization [facility] Address [address] [place] [address] Care Team Providers Care Client Experience Manager Name Role Phone Unavailable Primary Care Provider Unavailabl e Encounter Details Date Type Department Care Team (Late st Contact Info) Description 07/10/2003 Results Only [facility] - Maple conversion [address] [place] [address] Juliet Mercer, MAYNOR Social History Tobacco Use Types Packs/Day Years Used Date Smoking Tobacco: Never Assessed Sex and Gender Information Value Date Recorded Sex Assigned at Not on file Gender Identity Not on file Sexual Orientation Not on file documented as of this encounter Plan of Treatment Not on file documented as of this encounter Procedures Procedure Name Priority Date/Time Associated Diagnosis Comments CYTOPATHOLOGY Routine 07/10/2003 0:00 EDT documented in this encounter Results * CYTOPATHOLOGY (07/10/2003 0:00 EDT) Pathology Report: CYTOPATHOLOGY REPORT Reports generated via electronic interface contain original data; however they are lacking the format of the original report. Caution should be taken when reading/interpreti ng unformatted reports. Name: ? ZHANE PARRA ? Accession #: ? [id number] : ? 1955 (Age: 48) ??F ?Collect Date: ? 07/10/2003 Location: ? [facility] ? Receive Date: ? 07/11/2003 Provider: ?JULIET MERCER THRESHING MACHINE OPERATOR Copy to: ? Specimen/Source: ?ThinPrep Pap Test, Cervix/Endocervix Last Menstrual Period: ? 06/24/2003 Previous Gynecologic Pathology: ? Benign cellular changes: 05/04 ? SPECIMEN ADEQUACY ? Satisfactory for Evaluation - transformation zone component present GENERAL CATEGORIZATION ? Negative for Intraepithelial Lesion or Malignancy ? Document reviewed and electronically signed by: ? Alice Shahid, SCT(ASCP) ? Report Date: ??07/16/2003 12:00 End of Report [facility] 07/10/2003 07/11/2003 Juliet Mercer NP PATHOLOGY ORDERABLES [facility] [address] [place] [address] documented in this encounter Visit Diagnoses Not on filedocumented in this encounter
--- OUTSIDE RECORDS SUMMARY | 2024-01-04 14:24 | XMS_ITS | Encounter Summary ---
Author Organization [facility] Address [address] [place] [address] Care Team Providers Care Smearer Name Role Phone Alicia Brock MD Primary Care Provider [phone] Encounter Details Date Type Department Care Team ([facility] st Contact Info) Description 05/31/2018 Results Only [facility]- [facility] [phone] Zeynep Rodas, CENTRIFUGAL MACHINE TENDER [address] [place] [id number] Social History Tobacco Use Types Packs/Day Years Used Date Smoking Tobacco: Never Assessed Sex and Gender Information Value Date Recorded Sex Assigned at Not on file Gender Identity Not on file Sexual Orientation Not on file documented as of this encounter Plan of Treatment Not on file documented as of this encounter Procedures Procedure Name Priority Date/Time Associated Diagnosis Comments PAP TEST- RESULT ONLY Routine 05/31/2018 0:00 EDT documented in this encounter Results * PAP TEST- RESULT ONLY (05/31/2018 0:00 EDT) Pathology Report: CYTOPATHOLOGY REPORT Reports generated via electronic interface contain original data; however they are lacking the format of the original report. Caution should be taken when reading/interpreti ng unformatted reports. Name: ? ZHANE PARRA ? Accession #: ? [id number] ? : ? 1955 (Age: 63) ??F ?Collect Date: ? 05/31/2018 ? Location: ? [facility] ? Receive Date: ? 06/04/2018 ? Provider: ZEYNEP RODAS CENTRIFUGAL MACHINE TENDER Copy to: ? Final Report SPECIMEN ADEQUACY ? Satisfactory for Evaluation - transformation zone component absent GENERAL CATEGORIZATION ? Negative for Intraepithelial Lesion or Malignancy INTERPRETATION ? Shift in jacobo present suggestive of bacterial vaginosis. Last Menstrual Period: 2013 Other: Additional clinical information: Z01.419 Specimen/Source: ??Pap Test, Cervix/Endocervix, ThinPrep Imaging System with manual evaluation Document reviewed and electronically signed by: ? Amy Duke, CT(ASCP) ? Report ??Date: 06/05/2018 12:19 HPV with Pap Test ? Date Ordered: ? 06/05/2018 ? Status: ?? Signed Out ?Date Complete: ? 06/07/2018 ? By: ??System Interface ? Date Reported: ? 06/07/2018 ? Interpretation RESULT: Negative for HPV. No E6 or E7 mRNA is detected from HPV types 16,18,31,33,35, 39,45,51,52,56,58, 59,66, and 68 by soap press feeder mediated amplification. Comments Document reviewed and electronically signed by: ? System Interface ? Report date: 06/07/2018 By the signature above, the attending physician certifies that he/she has personally conducted a gross and/or microscopic examination of the described specimens and rendered or confirmed the above diagnosis. End of Report [facility] 05/31/2018 06/04/2018 Zeynep Rodas CENTRIFUGAL MACHINE TENDER PATHOLOGY ORDERABLES [facility] [address] [place] [address] documented in this encounter Visit Diagnoses Not on filedocumented in this encounter Care Teams Smearer Relationship Specialty Start Date End Date Alicia Brock MD [address] [place] [id number] PCP - General 07/14/15 documented as of this encounter
--- OUTSIDE RECORDS SUMMARY | 2024-01-04 14:24 | XMS_ITS | Encounter Summary ---
Author Organization [facility] Address 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 Social History Tobacco Use Types Packs/Day Years Used Date Smoking Tobacco: Never Smokeless Tobacco: Never Sex and Gender Information Value Date Recorded Sex Assigned at Not on file Gender Identity Not on file Sexual Orientation Not on file documented as of this encounter Last Filed Vital Signs Vital Sign Reading Time Taken Comments Blood Pressure 128/65 05/25/2020 10:52 AM EDT Pulse 58 05/25/2020 10:52 AM EDT Temperature 36.3 ??C (97.3 ??F) 05/25/2020 10:52 AM E DT Respiratory Rate 17 05/25/2020 10:52 AM EDT Oxygen Saturation 100% 05/25/2020 10:52 AM EDT Inhaled Oxygen Concentration - - Weight 69.1 kg (152 lb 5.4 oz) 05/25/2020 10:52 AM EDT Height 157.3 cm (5' 1.93) 05/25/2020 10:52 AM E DT Body Mass Index 27.93 05/25/2020 10:52 AM EDT documented in this encounter Progress Notes * Debbie Richards MD - 05/25/2020 10:30 AM EDT [facility] Department of Medicine [place], [place] [address] [facility] THROMBOSIS CONSULTATION DATE OF VISIT 05/25/20 Patient Zhane Parra 1955 REFERRING PHYSICIAN Zeynep Dolan APRN PRIMARY CARE PHYSICIAN Zeynep Dolan APRN REASON FOR CONSULTATION Recurrent DVT THROMBOSIS PROBLEM LIST: 1. 2001 Oral contraceptive associated calf DVT of the left leg 2. 2012 Superficial thrombophlebitis of the right leg - travel associated 2. Feb 2020 acute DVT in the right peroneal vein after a toe fracture Thrombophilia work up: heterozygous prothrombin gene mutation INTERVAL HISTORY: Zhane Parra is a 65 year-old woman with history of varicose vein, previous history of OCP associated calf DVT, recurrent phlebitis, known heterozygous prothrombin gene mutation who was referred back to our Thrombosis Clinic for recurrent DVT. She was last seen by me in 2012. She has been doing well without any recurrent DVT or phlebitis until Feb 2020 when she initially injured her left fifth toe. Her toe got caught and she experienced swelling and pain shortly after. She did not seek medical attention until about a week later. She was not able to put her shoes on. She was found to have a fractured toe. Her mobility was decreased by the injury. A few days later she experienced right calf discomfort and was diagnosed with acute DVT in the right peroneal vein on 03/02/20. She received enoxaparin one dose prior to the doppler and then was placed on full strength aspirin 325 mg PO daily. A repeat doppler one week later showed persistent clot. She was then started on apixaban. However, shortly after she developed broken small vessels throughout her body. It was non itchy. She stopped apixaban after being on it < 2 weeks andwent back to full strength aspirin. Her toe is back to normal and her calf discomfort has resolved,but noticed some discomfort behind her knee. She denies any chest pain, shortness of breath. She is concerned of persistent thrombus on the doppler and would like to reassess her thrombus status. PAST MEDICAL HISTORY Patient Active Problem List Diagnosis Code ??? DVT (deep venous thrombosis) I82.409 ??? Phlebitis I80.9 ??? Migraine G43.909 ??? Herpes simplex B00.9 ??? Prothrombin gene mutation D68.52 Hypothyroidism Hypercholesterolemia OPERATIVE PROCEDURES S/p rotator cuff surgery MEDICATIONS Current Outpatient Medications on File Prior to Visit Medication Sig Dispense Refill ??? aspirin 325 mg tablet Take 325 mg by mouth daily. ??? RIZATRIPTAN BENZOATE (MAXALT ORAL) Take by mouth as needed. ??? thyroid (ARMOUR) 30 mg tablet Take 30 mg by mouth daily. ??? EPINEPHRINE (EPIPEN IM) No current facility-administered medications on file prior to visit. Recently started on statin - but did not remember which one. ADVERSE DRUG REACTIONS Allergies as of 05/25/2020 - Review Complete 09/28/2012 Allergen Reaction Noted ??? Allergen jyp-suqjc-pukzs bee ??? Venom-wasp ??? Vapyz-pnejr-dddkr hornet ??? Venom-yellow hornet ??? Venom-yellow jacket APixaban - FAMILY HISTORY Mother in her 80s. She after intestine surgery. Hx of thyroid problem, diabetes, hypercholesterolemia Father at the age of 93, hx of prostate cancer One brother with pacemaker 2 brothers and 2 sisters. 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 No tobacco, alcohol REVIEW OF SYSTEMS Fevers/chills/sweats No Recent infections No Unexplained weight loss No Headache/lightheadedness/syncope No Sinus pain/pressure No Oral sores/lesions/bleeding No Sore throat/dysphagia No Nosebleeds No Cough/SOB/chest pain/heart racing No Nausea/vomiting/dyspepsia No Abdominal pain No Diarrhea/constipation No Urinary pain, burning, incontinence No Hematuria No Vaginal discharge/bleeding No Skin rashes/ulcers No Back/joint pain/swelling No Leg swelling/pain/redness Right calf pain improved, some discomfort above the high behind the knee.Toe pain resolved Bruising/petechiae/bleeding/melena No Sensory/motor No Polydipsia/polyuria/heat/cold intol No Lumps/bumps/swollen glands No Other Negative except as above PHYSICAL EXAMINATION BP 128/65 (Patient Position: Sitting) Pulse 58 Temp 36.3 ??C (97.3 ??F) (Temporal) Resp 17 Ht 157.3 cm (5' 1.93) Wt 69.1 kg (152 lb 5.4 oz) SpO2 100% BMI 27.93 kg/m?? GENERAL: Well-appearing, articulate white female. HEENT: Wearing mask NECK: Supple; BREASTS: Exam deferred. CHEST: Clear to auscultation/percussion. No rales, rhonchi, wheezes. HEART: Regular rate and rhythm; no murmur, rub, gallop ABDOMEN: Soft, non-tender, GENITOURINARY: Exam deferred. EXTREMITIES: No clubbing, cyanosis or edema. No erythema, tenderness or palpable cords. Bilateral varicosities. MUSCULOSKELETAL: Spine nontender. No acutely inflamed joints. SKIN: No ecchymoses, petechiae, ulcers or rashes. LYMPH: No palpable lymph nodes. NEUROLOGIC: Alert, oriented. Speech clear, coherent. No focal deficits noted. PSYCHIATRIC: Appropriate affect, no apparent distress. LABORATORY STUDIES None RADIOGRAPHIC STUDIES Ultrasound doppler today Interpretation: ?? RIGHT: Non-occlusive deep vein thrombosis in the calf (peroneal veins) as well as occlusive intramuscular (soleal) vein thrombus in the calf of indeterminate age, suggestive of subacute thrombus. No evidence of femoral-popliteal or posterior tibial deep vein thrombosis. IMPRESSION Zhane Parra is a 65 y.o. woman with history of OCP associated calf DVT of the left leg, superficial thrombophlebitis of the right, known heterozygous prothrombin [id number] gene mutation who wasreferred to our Thrombosis Clinic for a recurrent DVT. Zhane is well known to me. I saw her last in 2012. She has been doing well without any recurrent DVT event until recent. We reviewed her outside doppler which showed acute DVT involving the peroneal vein in the right leg and this was clearly provoked by her toe fracture and decreased mobility. I explained that current ACCP recommendations for individuals with an isolate symptomatic distal DVT is either to follow serially or treat with anticoagulation for 3 months. In her case, I thought itwas appropriate to consider anticoagulation because of her known inherited thrombophilia. However, she could not tolerate apixaban due to side effect and apixaban was discontinued. She has maintainedon aspirin full strength since then. Today we repeated doppler to establish a new baseline which showed persistent non occlusive thrombus in the peroneal veins. There was no extension to proximal vein. It was also noted that she has an occlusive thrombus in the intramuscular soleal vein. I do not think that this represented a progression. This vein is very small and was not examined during previous doppler. We usually do not necessary need to treat soleal vein thrombus with anticoagulation. Now that she is > 3 months out from her initial diagnosis of DVT and she has recovered well fromher toe fracture & her ultrasound did not show a progression of DVT, I see no indication to restart her anticoagulation. I reassured her that 30% of DVT fail to recanalize and this becomes scarring into the blood vessel and it is not at risk of embolization. This last ultrasound should serveher as a new baseline. We discussed that the presence of prothrombin gene X19630P mutation is not an indication for long-term anticoagulation. The prothrombin S40630T gene mutation is present in the heterozygous form in upto 2-3% of unselected individuals and is a common cause of hereditary thrombophilia. Heterozygous PT F03828K is a mild risk factor for a first episode of venous thromboembolic disease (VTE)and but does not appear to be a significant risk factor for recurrent VTE or for arterial thrombosis in adults under most circumstances. Most individuals with PT O66480F are asymptomatic; however, the thrombotic risk conferred by PT A83423T is amplified in the presence of certain other risk factors(e.g., immobility, surgery, hospitalization, trauma etc). . I reviewed preventative strategies including maintain good weight/activity, wearing compression & consider pharmacologic thromboprophylaxis during high risk period such as trauma, surgery, periodof immobility, getting up and walking during long car ride/long haul flight, staying up to date with cancer screening, avoid hormone replacement therapy. Should she plan to undergo an elective surgery in the future, I am happy to see her back to help formulate thromboprophylaxis plan. We also discussed that should she require anticoagulation in the future, we can explore other DOAC such as rivaroxaban, edoxaban. It looked like that she was referred to see a vascular surgeon here. I don't think the appointment with vascular surgery is necessary. We can double check with her PCP whether there is any additionalquestion she has to vascular surgeon. PLAN/RECOMMENDATIONS 1. She can reduce her aspirin full strength to 81 mg PO daily for cardiovascular prevention 2. No indication for anticoagulation at this current time 3. Preventative strategies discussed 4. Will contact PCP's office regarding vascular surgery appointment at if necessary All of her questions were answered at her satisfaction. While I won't see her back for routine follow up, she knows that she can call our office should any questions or concerns arise. Debbie Richards MD documented in this encounter Plan of Treatment Not on file documented as of this encounter Results * Duplex for DVT, Leg, Unilat (05/25/2020 12:11 PM EDT) VB Text Report Department: Vascular Surgery Lab Patient: [id number] (ZHANE PARRA) CPT: 52779 ICD10: I82.451;Z86.718 Referring Physician: DEBBIE RICHARDS ?? [...] documented in this encounter Visit Diagnoses Diagnosis Chronic deep vein thrombosis (DVT) of right peroneal vein- Primary Heterozygous for prothrombin [id number] mutation Primary hypercoagulable state documented in this encounter Care Teams Controlled Atmospheric Furnace Brazer Relationship Specialty Start Date End Date Zeynep Dolan APRN PCP - General Family Medicine 03/13/20 documented as of this encounter
--- OUTSIDE RECORDS SUMMARY | 2024-01-04 14:24 | XMS_ITS | Encounter Summary ---
Author Organization [facility] Address [address] [place] [address] Care Team Providers Care Mall Manager Name Role Phone Unavailable Primary Care Provider Unavailabl e Encounter Details Date Type Department Care Team (Late st Contact Info) Description 06/01/2000 Results Only [facility] [address] [place] [address] Juliet Mercer, MAYNOR Social History Tobacco Use [...] Priority Date/Time Associated Diagnosis Comments CYTOPATHOLOGY Routine 06/01/2000 0:00 EST documented in this encounter Results * CYTOPATHOLOGY (06/01/2000 0:00 EST) Pathology Report: CYTOPATHOLOGY REPORT Reports generated via electronic interface contain original data; however they are lacking the format of the original report. Caution should be taken when reading/interpreti ng unformatted reports. Name: ? ZHANE PARRA ? Accession #: ? [id number] : ? 1955 (Age: 45) ??F ?Collect Date: ? 06/01/2000 Location: ? [facility] ? Receive Date: ? 06/02/2000 Provider: ?JULIET MERCER EVENT MARKETING COORDINATOR Copy to: ? Specimen/Source: ?ThinPrep Pap Test, Cervix/Endocervix Last Menstrual Period: ? 05/10/00 ? SPECIMEN ADEQUACY ? Satisfactory for evaluation. GENERAL CATEGORIZATION ? Benign Cellular Changes DESCRIPTIVE DIAGNOSIS ? 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 ? Document reviewed and electronically signed by: ? Nyla Rowe, CT(ASCP) ? Report Date: ??06/05/2000 09:18 End of Report [place] 06/01/2000 06/02/2000 Juliet Mercer NP PATHOLOGY ORDERABLES [facility] [address] [place] [address] documented in this encounter Visit Diagnoses Not on filedocumented in this encounter
--- OUTSIDE RECORDS SUMMARY | 2024-01-04 14:24 | XMS_ITS | Encounter Summary ---
Author Organization [facility] Address [facility] [place] [address] Care Team Providers Care Human Resources Associate Name Role Phone Rochelle Mills MD Primary Care Provider [phone] Encounter Details Date Type Department Care Team (Late st Contact Info) Description 03/12/2020 Telephone Hematology [place] [address] Digna Gerardo MD [facility] DR HEMATOLOGY/[place] [address] Social History Tobacco Use Types Packs/Day Years Used Date Smoking Tobacco: Never Sex and Gender Information Value Date Recorded Sex Assigned at Not on file Gender Identity Not on file Sexual Orientation Not on file documented as of this encounter Miscellaneous Notes * Telephone Encounter - Digna Gerardo - 03/12/2020 4:34 PM EST Reason for call: Should this patient be on anticoagulation. Zhanedelroy Parra is a 64 y.o. female with h/p OCP associated DVT of the leg, superficial thrombophlebitis of the right leg, hetrozygous for prothrombin gene mutation who is on baby aspirin developed right lower extremity pain and swelling (1 cm more than left). A week ago found to have 9 cm thrombus in peroneal veins. Advised warm compressors and full dose aspirin. A duplex was repeated yesterday that showed persistent clot. Rodger morrison is calling to discuss if she should be anticoagulated. They have already sent referral to hematology. She saw Dr. Richards in 2013. Recommendations: Due to location and size of the clot, recommended therapeutic anticoagulation with Eliquis 10 mg BID x 7 days followed by 5 mg BID. Digna Gerardo MD, MS Hematology/Medical Oncology Fellow [facility] Page # [phone] 03/12/20, 4:39 PM documented in this encounter Plan of Treatment Not on file documented as of this encounter Visit Diagnoses Not on filedocumented in this encounter Care Teams Human Resources Associate Relationship Specialty Start Date End Date Rochelle Mills MD [facility] [address] [place] [address] [place] [address] PCP - General 08/09/12 03/12/20 documented as of this encounter
--- OUTSIDE RECORDS SUMMARY | 2024-01-04 14:24 | XMS_ITS | Encounter Summary ---
Author Organization [facility]ly [facility] Address [facility] [place] [address] Care Team Providers Care In Store Banker Name Role Phone Rochelle Mills MD Primary Care Provider [phone] Reason for Visit * Reason Comments Advice Only Encounter Details Date Type Department Care Team (Late st Contact Info) Description 08/10/2012 2:00 PM EDT Office Visit Hematology [place] [address] Debbie Richards MD [facility] [address] [place] [address] Thrombosis (Primary Dx); Varicose vein Discharge Disposition: Home Social History Tobacco Use Types Packs/Day Years Used Date Smoking Tobacco: Never Sex and Gender Information Value Date Recorded Sex Assigned at Not on file Gender Identity Not on file Sexual Orientation Not on file documented as of this encounter Last Filed Vital Signs Vital Sign Reading Time Taken Comments Blood Pressure 96/68 08/10/2012 2:26 PM EDT Pulse 63 08/10/2012 2:26 PM EDT Temperature 36.9 ??C (98.4 ??F) 08/10/2012 2:26 PM ED T Respiratory Rate 16 08/10/2012 2:26 PM EDT Oxygen Saturation 99% 08/10/2012 2:26 PM EDT Inhaled Oxygen Concentration - - Weight 60 kg (132 lb 4.4 oz) 08/10/2012 2:26 PM EDT Height 159.2 cm (5' 2.68) 08/10/2012 2:26 PM ED T Body Mass Index 23.67 08/10/2012 2:26 PM EDT documented in this encounter Progress Notes * Debbie Covarrubias MD - 08/10/2012 2:35 PM EDT [facility] The [facility] [address] [facility] [address] Department of Medicine [place] [address] [facility] Thrombosis Center THROMBOSIS CONSULTATION DATE OF VISIT 08/10/2012 Patient Zhane Parra 1955 REFERRING PHYSICIAN ROCHELLE MILLS MD PRIMARY CARE PHYSICIAN ROCHELLE MILLS MD REASON FOR CONSULTATION Evaluation of thrombophilia HISTORY OF THE PRESENT ILLNESS Zhane Parra is a 57 y.o. 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 She was not certain how extensive the clot was, but the symptom was localized in her calf. She was recommended to take aspirin for a few weeks. Since then she has been off oral contraceptive. She has been doing fine until she developed a mild right calf pain that was localized on one spot in May 2012. No swelling. The pain comes and goes. Shortly after she was in a long car ride from [place] to [place] via [place] before taking a plane to [place]. [facility] [place] [facility] she noticed increased pain in her right calf, warmth which reminded her of her previous clot. She went to the hospital the next day and was diagnosed with superficial thrombophlebitis. She was instructed to take aspirin. It took a few weeks until her pain improves. She denies any chest pain, shortness of breath. Krystyna has a history of varicose vein. She noticed that her varicose veins are more significant during the last year. Sometimes she has pain in those area. THROMBOSIS RISK FACTORS Risk Factor Comment Obesity (BMI >30 kg/m2) V/A Body mass index is 23.67 kg/(m^2). Diabetes V/A Current smoker V/A Estrogen or estrogen/progestin V/A V/A Inflammatory disease V/A Recent surgery (<3 months) V Recent hospitalization (<3 mo) V Recent travel (<3 mo) V Period of immobility V Documented thrombophilia V Accident/Trauma V/A Cancer or treatment for cancer V/A Blood transfusion V/A Central venous catheter V Family history (1st degree) V/A Varicose veins/venous insuff. V Y Hypertension A Hyperlipidemia A Vascular disease A V: Risk factor for venous thrombosis; A: Risk factor for arterial thrombosis PAST MEDICAL HISTORY Hypercholesterolemia Varicose vein OPERATIVE PROCEDURES S/p rotator cuff repair 3-4 years ago OBSTETRIC HISTORY MEDICATIONS Current Outpatient Prescriptions on File Prior to Visit Medication Sig Dispense Refill ??? EPINEPHRINE (EPIPEN IM) ADVERSE DRUG REACTIONS Allergies as of 08/10/2012 - Review Complete 08/10/2012 Allergen Reaction Noted ??? Honey bee venom ??? Wasp venom ??? White-faced hornet venom ??? Yellow hornet venom ??? 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 No tobacco, alcohol REVIEW OF SYSTEMS Fevers/chills/sweats No Recent infections No Unexplained weight loss No Headache/lightheadedness/syncope No Sinus pain/pressure No Oral sores/lesions/bleeding No Sore throat/dysphagia No Nosebleeds No Cough/SOB/chest pain/heart racing No Nausea/vomiting/dyspepsia No Abdominal pain No Diarrhea/constipation No Urinary pain, burning, incontinence No Hematuria No Vaginal discharge/bleeding No Skin rashes/ulcers No Back/joint pain/swelling No Leg swelling/pain/redness Leg pain resolved Bruising/petechiae/bleeding/melena No Sensory/motor No Polydipsia/polyuria/heat/cold intol No Lumps/bumps/swollen glands No Other Negative except as above PHYSICAL EXAMINATION BP 96/68 Pulse 63 Temp(Src) 36.9 ??C (98.4 ??F) (Oral) Resp 16 Ht 159.2 cm (5' 2.68) Wt 60 kg (132 lb 4.4 oz) BMI 23.67 kg/m2 SpO2 99% GENERAL: Well-appearing, articulate white female. HEENT: Oropharynx clear; no mucosal lesions, petechiae, bleeding, thrush or ulcers. NECK: Supple; no cervical, supraclavicular or submental adenopathy. BREASTS: Exam deferred. CHEST/LUNGS: Clear to auscultation/percussion. No rales, rhonchi, wheezes. HEART: Regular rate and rhythm; no murmur, rub, gallop GASTROINTESTINAL: Abdomen soft, non-tender, no hepatosplenomegaly. GENITOURINARY: Exam deferred. EXTREMITIES: No clubbing, cyanosis or edema. No erythema or palpable Cords. Mild tenderness at the right posterior calf , + venous varicosities bilaterally. No skin discoloration or hemosiderin deposits. Peripheral pulses palpable. MUSCULOSKELETAL: Spine nontender. Full ROM all joints. No acutely inflamed joints. SKIN: No ecchymoses, petechiae, ulcers or rashes. LYMPH: No palpable lymph nodes. NEUROLOGIC: Alert, oriented. Speech clear, coherent. No focal deficits noted. PSYCHIATRIC: Appropriate affect, no apparent distress. LABORATORY STUDIES Pending. RADIOGRAPHIC STUDIES None IMPRESSION Zhane Parra is a 57 y.o. woman with history of oral contraceptive associated DVT and now superficial thrombophlebitis who is here for evaluation of thrombophilia. I reviewed the difference between an idiopathic VTE event and one that may have been precipitated by temporary risk factors (e.g., surgery, trauma, travel, hospitalization, immobilization) and discussed the additive nature of factors such as hereditary or acquired thrombophilia (e.g., factor V Leiden, PT [id number]), ABO blood type (non-O > O), dehydration, obesity, smoking varicose veins, diabetes, cancer, hormone use. We reviewed that the current ACCP recommends supportive measures such as leg elevation, warm/cold compression, NSAIDs for superficial thrombophlebitis. For patients with extensive superficial thrombophlebitis ( > 5 cm or close to saphenofemoral junction), anticoagulation is suggested. I do not have her official report of her ultrasound, but I assumed that she did not have an extensive thrombophlebitis. I recommend her to continue aspirin until at least her symptom resolves. She is concerned about inherited thrombophilia given that she is a mother of 6 children. Given thatgladys has a recurrent event and the second event seems to be idiopathic (the calf pain preceded her long haul flight), I think it is reasonable to perform thrombophilia testing today. We then discussed about her clinical risk factor which is her varicose vein that has worsened over the past year. I would like to refer her to see Dr. Guaman for evaluation of radiofrequency ablation. She is interested in meeting with him. I prescribed her a new pair of compression stocking (below the knee 20-30 mmHg) and recommend her to wear them during waking hours on daily basis, especially du ring travel. We discussed other preventative strategies including maintain good activity, maintain healthy weight, staying well hydrated, getting up regularly during long car ride/flight, wearing compression stocking. PLAN/RECOMMENDATIONS Thrombophilia testing today Continue aspirin until at least her symptom resolves. Recommend wearing compression stocking regularly, especially during travel, surgery, trauma (high risk) Referral to Dr. Guaman for evaluation of radiofrequency ablation I will request the official report of her ultrasound from 12 years ago and from recently Zhane Parra had the opportunity to ask questions and indicated that all her questions were answered to her satisfaction. She will follow up with me in approximately three weeks to discuss the results of the thrombosis testing, and I will finalize my recommendations at that time. Debbie Covarrubias MD Instructor of Medicine, [facility] documented in this encounter Plan of Treatment Not on file documented as of this encounter Procedures Procedure Name Priority Date/Time Associated Diagnosis Comments PROTHROMBIN MUT Routine 08/10/2012 3:57 PM EDT TT Routine 08/10/2012 3:57 PM EDT Thrombosis PTT Routine 08/10/2012 3:57 PM EDT Thrombosis PT Routine 08/10/2012 3:57 PM EDT Thrombosis PLAT Routine 08/10/2012 3:57 PM EDT Thrombosis LANT Routine 08/10/2012 3:57 PM EDT Thrombosis FIBR Routine 08/10/2012 3:57 PM EDT Thrombosis THROMBOSIS SCREEN REPORT Routine 08/10/2012 3:57 PM EDT THROMBOSIS SCREEN Routine 08/10/2012 3:5 7 PM EDT Thrombosis THS REPORT Routine 08/10/2012 3:57 PM EDT Thrombosis PROTEIN S ACTIVITY Routine 08/10/2012 3: 57 PM EDT APC RESISTANCE Routine 08/10/2012 3:57 PM EDT BETA-2 GLYCOPROTEIN ANTIBODIES Routine 08/10/2012 3:57 PM EDT Thrombosis PROTEIN C ACTIVITY Routine 08/10/2012 3: 57 PM EDT CARDIOLIPIN ANTIBODY SCREEN Routine 08/10/2012 3:57 PM EDT Thrombosis ANTITHROMBIN Routine 08/10/2012 3:57 PM EDT HOMOCYSTEINE TOTAL, PLASMA Routine 08/10/2012 3:57 PM EDT Thrombosis documented in this encounter Results * Thrombosis Screen Report (08/10/2012 3:57 PM EDT) Thrombosis Screen Report ? [facility] ? Provider: ?? SANJAY, ?Pt. Name: ?? ZHANE PARRA ?DEBBIE ? Acc #: ?[id number] ? Pt. ? Col Date: ?? 08/10/2012 ?/Sex: ?1955,(57 years),Female ? Rec Date: ?? 08/10/2012 ?LOC: ?3K ? THROMBOSIS SCREEN REPORT ? ---Clinical Information--- ? 57 yo with superficial thrombophlebitis. ? ---Result--- ? TEST ?(REFERENCE RANGE) ?RESULT ? Platelet count ?(145,000-370,000/u L) ?324,000/cumm ? PT ?(12-15) ? 12.3 sec ? PTT ? (25-35) ? 25 sec ? Fibrinogen ?(220-480) ? 285 mg/dl ? Thrombin time ? (15-21) ? 16 sec ? APC resistance, ratio ? (>2.00) ? 2.36 ? Antithrombin ?(80-120%) ? 116% ? Protein C* ?(67-156%) ? 152% ? Protein S* ?(M:66-139%)(F:65-1 23%) ??105% ? Lupus anticoagulant ? (negative) ?Negative ? Anticardiolipin antibodies ?(IgG <23 GPL) ? <23 GPL ? Anticardiolipin antibodies ?(IgM <11 MPL) ? <11 MPL ? Xsvf-5-jmttbzkmqrek- 1 antibodies ??(IgG <21 units) ? IgG <21 units ? Thae-7-fvxtwxdmooxc- 1 antibodies ??(IgM <21 units) ? IgM <21 units ? Homocysteine, random, plasma ?(<12 umol/L) ?11 umol/L ? Factor V Leiden Mutation ?(normal) ?Not performed ? 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 * Functional assay for free Protein S and Protein C ? ---Interpretation--- ? 1. ?? 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 2. ?? No evidence for the presence of additional common hematologic risk ? factors associated with hereditary or acquired ? thrombophilia (see comment 2). ? 08/17/12 ? DLO ? 08/17/12 Verified by: ? Jeanette WEBB, Kori Erwin ? Hematopathologist ? (Electronic Signature) ? The attending pathologist whose signature appears on this report has ? reviewed all diagnostic slides and has edited the gross and/or ? microscopic portion of the report in rendering the final pathologic ? diagnosis. ? [facility] ? Provider: ?? SANJAY, ?Pt. Name: ?? ZHANE PARRA ?DEBBIE ? Acc #: ?[id number] ? Pt. ? Col Date: ?? 08/10/2012 ?/Sex: ?1955,(57 years),Female ? Rec Date: ?? 08/10/2012 ?LOC: ?3K ? THROMBOSIS SCREEN REPORT ? ---Comment--- ? 1. The prothrombin V49589V gene mutation is present in the heterozygous ? form in up to 2-3% of unselected individuals and is a common ? cause of hereditary thrombophilia. ??Heterozygous PT [id number] is a mild risk ? factor for a first episode of venous thromboembolic disease (VTE) and ? possibly for recurrent loss but does not appear to be a ? significant risk factor for recurrent VTE or for arterial thrombosis in ? adults under most circumstances. ??Most individuals with PT X32002E are ? asymptomatic; however, the thrombotic risk conferred by PT G17699W is ? amplified in the presence of certain other risk factors (e.g., smoking, ? obesity, contraceptives, ). This individual may have additional as ? yet undefined genetic or environmental risk factors for thrombosis. ? Consultation with a thrombosis specialist or genetic counselor may be ? helpful for further characterizing specific thrombosis risk for this ? patient. ? 2. The screening test for activated protein C resistance is negative, thus ? there is no evidence for the presence of factor V Leiden. ??The DNA assay ? for factor V Leiden is therefore not indicated and was not performed as ? part of this study. [facility] 08/10/2012 3:57 PM EDT Debbie Richards MD PATHOLOGY/CYTOLOGY O GABERANORMA [facility] * PT Mut (08/10/2012 3:57 PM EDT) Prothrombin Mutation Heterozygous [facility] Prothrombin Mutation Interp RESULT: HETEROZYGOUS POSITIVE FOR THE 68399Z>A [place] IN THE 3' UNTRANSLATED REGION OF THE PROTHROMBIN GENE (([id number]) [id number].[id number] 3G>A). METHODS: The region of interest in the Prothrombin gene [36431 (G->A)] is interrogated using a TaqMan allelic discrimination assay. Genomic DNA was isolated from the submitted peripheral blood specimen. Real-time PCR was performed to amplify a short region spanning the mutation site, and genotyping was performed by allelic discrimination using a mixture of fluorescently labeled probes, one of which is specific for the wild type gene, the other specific for the mutant gene. This assay was performed using analyte specific reagents which are regulated by the U.S. Food and Drug Administration. This test was developed and its performance characteristics determined by the Molecular Pathology Laboratory at [facility]. This test is used for clinical purposes and should not be considered as investigational or for research purposes. It has not been cleared or approved by the U.S. Food and Drug Administration. However, as a C[place] licensed laboratory, our facility is approved for such high complexity clinical testing. [facility] Comment: [VERIFIED DATE]08.15.12 Verified By:Maribell Sevilla MD Pathologist (Electronic Signature) Blood specimen (specimen) 08/10/2012 3:57 PM EDT 08/13/2012 10:14 AM EDT Narrative Resulting Agency Comment Spec In Lab Debbie Richards MD HEMATOLOGY ORDERABLE S Performing Organization Address [facility] Co de Phone Number [facility] * Protein S Activity (08/10/2012 3:57 PM EDT) Protein S Act 105 65 - 123 % activity [facility] Blood specimen (specimen) 08/10/2012 3:57 PM EDT 08/10/2012 4:00 PM EDT Narrative Resulting Agency Comment Spec In Lab Debbie Richards MD HEMATOLOGY ORDERABLE S Performing Organization Address [facility] Phone Number [facility] * Protein C activity (08/10/2012 3:57 PM EDT) Protein C Activity 152 67 - 156 % activity [facility] Blood specimen (specimen) 08/10/2012 3:57 PM EDT 08/10/2012 4:00 PM EDT Narrative Resulting Agency Comment Spec In Lab Debbie Richards MD HEMATOLOGY ORDERABLE S Performing Organization Address [facility] Co de Phone Number [facility] * Antithrombin (08/10/2012 3:57 PM EDT) Pathologist [facility] Antithrombin III Assay 116 80 - 120 % [facility] Blood specimen (specimen) 08/10/2012 3:57 PM EDT 08/10/2012 4:00 PM EDT Narrative Resulting Agency Comment Spec In Lab Debbie Richards MD HEMATOLOGY ORDERABLE S Performing Organization Address [facility] de Phone Number [facility] * APC resistance (08/10/2012 3:57 PM EDT) Pathologist [facility] Activated Protein C Resistance 2.36 >=2.00 [facility] Blood specimen (specimen) 08/10/2012 3:57 PM EDT 08/10/2012 4:00 PM EDT Narrative Resulting Agency Comment Spec In Lab Debbie Richards MD HEMATOLOGY ORDERABLE S Performing Organization Address [facility] de Phone Number [facility] * Beta-2 glycoprotein antibodies (08/10/2012 3:57 PM EDT) Beta 2 Glycoprotein, IgG <21 <=20 unit(s) [facility] Comment: Ranges ?Units ----- ? ----- Normal ? <21 Low Positive (+) ?21-50 Moderate Positive (+) ? 51-100 High Positive (+) ?>100 Beta 2 Glycoprotein, IgM <21 <=20 unit(s) [facility] Comment: Ranges ? Units ----- ?----- Normal ?<21 Low Positive (+) ? 21-50 Moderate Positive (+) ?51-100 High Positive (+) ? >100 B2GPI Interp See Thrombosis Screen Report TS- under Hematopatholo gy Reports. [facility] Blood specimen (specimen) 08/10/2012 3:57 PM EDT 08/13/2012 8:51 AM EDT Narrative Resulting Agency Comment Spec In Lab Debbie Richards MD IMMUNOLOGY ORDERABLE S Performing Organization Address [facility] de Phone Number [facility] * Homocysteine Total, Plasma (08/10/2012 3:57 PM EDT) Homocystine 11 5 - 12 mcmol/L [facility] Comment:Reference Range appl ies to fasting specimens only. Blood specimen (specimen) 08/10/2012 3:57 PM EDT 08/13/2012 8:46 AM EDT Narrative Resulting Agency Comment Spec In Lab Debbie Richards MD CHEMISTRY ORDERABLES Performing Organization Address [facility] de Phone Number [facility] * Cardiolipin Antibody Screen (08/10/2012 3:57 PM EDT) Cardiolipin Antibody IgG <23 <=22 GPL unit(s) [facility] Comment: Ranges ? GPL ------- ? ------ Normal ?<23 Low Positive ? 23-35 Moderate Positive ?36-50 High Positive ? >50 Cardiolipin Antibody IgM <11 <=10 MPL unit(s) [facility] Comment: Ranges ?MPL ----- ?----- Normal ?<11 Low Positive ? 11-20 Moderate Positive ?21-30 High Positive ? >30 Blood specimen (specimen) 08/10/2012 3:57 PM EDT 08/13/2012 8:51 AM EDT Narrative Resulting Agency Comment Spec In Lab Debbie Richards MD IMMUNOLOGY ORDERABLE S Performing Organization Address [facility] de Phone Number [facility] * THS Report (08/10/2012 3:57 PM EDT) THS Report See Comment [facility] Comment:See Thrombosis Scree n Report [id number] under Hematopathology Reports. Blood specimen (specimen) 08/10/2012 3:57 PM EDT 08/10/2012 4:00 PM EDT Narrative Resulting Agency Comment Spec In Lab Debbie Richards MD HEMATOLOGY ORDERABLE S Performing Organization Address [facility] de Phone Number [facility] * Plat (08/10/2012 3:57 PM EDT) Platelet 324 145 - 370 x10(3)/mcL [facility] Blood specimen (specimen) 08/10/2012 3:57 PM EDT 08/10/2012 4:00 PM EDT Narrative Resulting Agency Comment Spec In Lab Debbie Richards MD HEMATOLOGY ORDERABLE S Performing Organization Address [facility] de Phone Number [facility] * Lant (08/10/2012 3:57 PM EDT) Lupus Anticoagulant Neg Neg [facility] Blood specimen (specimen) 08/10/2012 3:57 PM EDT 08/10/2012 4:00 PM EDT Narrative Resulting Agency Comment Spec In Lab Debbie Richards MD HEMATOLOGY ORDERABLE S Performing Organization Address [facility] de Phone Number [facility] * TT (08/10/2012 3:57 PM EDT) Thrombin Time 16 15 - 20 sec [facility] Blood specimen (specimen) 08/10/2012 3:57 PM EDT 08/10/2012 4:00 PM EDT Narrative Resulting Agency Comment Spec In Lab Debbie Richards MD HEMATOLOGY ORDERABLE S Performing Organization Address [facility] de Phone Number [facility] * FIBR (08/10/2012 3:57 PM EDT) Fibrinogen 285 175 - 450 mg/dL [facility] Blood specimen (specimen) 08/10/2012 3:57 PM EDT 08/10/2012 4:00 PM EDT Narrative Resulting Agency Comment Spec In Lab Debbie Richards MD HEMATOLOGY ORDERABLE S Performing Organization Address [facility] de Phone Number [facility] * PTT (08/10/2012 3:57 PM EDT) Partial Thromboplastin Time 25 25 - 35 sec [facility] Comment: Recommended therapeutic PTT range for full dose unfractionated heparin is 80-114 seconds. Blood specimen (specimen) 08/10/2012 3:57 PM EDT 08/10/2012 4:00 PM EDT Narrative Resulting Agency Comment Spec In Lab Debbie Richards MD HEMATOLOGY ORDERABLE S Performing Organization Address [facility] Co de Phone Number CHERELLE GARSIA * PT (08/10/2012 3:57 PM EDT) Prothrombin Time 12.3 12.0 - 15.0 sec [facility] Comment: [facility] Transfusion Committee Guidelines: INR less than 2.0, PTT less than OR equal to 43.5 seconds, or Fibrinogen greater than or equal to 100 mg/dl indicate adequate procoagulant activity for hemostasis in patients without underlying bleeding disorders. International Normalization Ratio 0.9 0.9 - 1.1 [facility] [place] Blood specimen (specimen) 08/10/2012 3:57 PM EDT 08/10/2012 4:00 PM EDT Narrative Resulting Agency Comment Spec In Lab Debbie Richards MD HEMATOLOGY ORDERABLE S Performing Organization Address [facility] de Phone Number [facility]ER[facility] GARS[facility] documented in this encounter Visit Diagnoses Diagnosis Thrombosis- Primary Embolism and thrombosis of unspecified site Varicose vein Asymptomatic varicose veins documented in this encounter Care Teams In Store Banker Relationship Specialty Start Date End Date Rochelle Mills MD [facility] [address] [place] [address] [place] [address] PCP - General 08/09/12 03/12/20 documented as of this encounter
--- OUTSIDE RECORDS SUMMARY | 2024-01-04 14:24 | XMS_ITS | Referral Summary ---
Author Organization [facility] Address [address] [place] [address] Care Team Providers Care Supervisor Mattress And Boxsprings Name Role Phone Alicia Brock MD Primary Care Provider [phone] Social History Tobacco Use Types Packs/Day Years Used Date Smoking Tobacco: Never Assessed Interpersonal Safety Answer Date Record ed Physically Hurt Never 10/06/2019 Verbally Threaten Not on file 10/06/2019 Sex and Gender Information Value Date Recorded Sex Assigned at Not on file Gender Identity Not on file Sexual Orientation Not on file Plan of Treatment Not on file Care Teams Supervisor Mattress And Boxsprings Relationship Specialty Start Date End Date Alicia Brock MD [address] [place] [id number] PCP - General 07/14/15
--- OUTSIDE RECORDS SUMMARY | 2024-01-04 14:24 | XMS_ITS | Encounter Summary ---
Author Organization [facility] [place] [address] Care Team Providers Care Mulcher Operator Name Role Phone Zeynep Dolan APRN Primary Care Provider [phone] Encounter Details Date Type Department Care Team (Late st Contact Info) Description 05/29/2020 Telephone Hematology [place] [phone] Nelly Pichardo RN Social History Tobacco Use Types Packs/Day Years Used Date Smoking Tobacco: Never Smokeless Tobacco: Never Sex and Gender Information Value Date Recorded Sex Assigned at Not on file Gender Identity Not on file Sexual Orientation Not on file documented as of this encounter Miscellaneous Notes * Telephone Encounter - Nelly Pichardo RN - 05/29/2020 10:58 AM EDT TC to DOREEN Bennett at PCP office @ [phone]. Relayed message below, date Dr. Richards saw patient,and request to review Vascular referral and cancel if ok and let patient know. PCP to call back with any questions. Nelly Pichardo RN MSN ===View-only below this line=== ----- Message ----- From: Debbie Richards MD Sent: 05/29/2020 10:28 AM EDT To: DOREEN Silva: she has a pending new referral to vascular surgery. I have already addressed her DVT and repeat doppler. I don't think she needs to see vascular, can you call PCP and double check with them whether they are ok with cancelling vascular surgery referral? If yes, we need to let vascular surgerydepartment here know and also please let patient know. Thanks, Debbie documented in this encounter Plan of Treatment Not on file documented as of this encounter Visit Diagnoses Not on filedocumented in this encounter Care Teams Mulcher Operator Relationship Specialty Start Date End Date Zeynep Dolan, MARY PCP - General Family Medicine 03/13/20 documented as of this encounter
--- OUTSIDE RECORDS SUMMARY | 2024-01-04 14:24 | XMS_ITS | Clinical Summary ---
Author Organization [facility] Address [facility] [place] [address] Care Team Providers Care Fleet Operations Manager Name Role Phone Zeynep Dolan APRN Primary Care Provider [phone] Allergies Active Allergy Reactions Criticality Noted Date Comments Allergen Bbs-Dhjgx-Tadyx Bee Apixaban 05/29/2020 Non itchy broken small vessels Venom-Wasp Zkwfh-Ryubf-Dnnbc Hornet Venom-Yellow Hornet Venom-Yellow Jacket Medications Medication Sig Dispensed Refills Start Date End Date Status EPINEPHRINE (EPIPEN IM) 03/08/2006 A ctive thyroid (ARMOUR) 30 mg tablet Take 30 mg by mouth daily. Active aspirin 325 mg tablet Take 325 mg by mouth daily. Active RIZATRIPTAN BENZOATE (MAXALT ORAL) Take by mouth as needed. Active Active Problems Problem Noted Date Diagnosed Date Prothrombin gene mutation 09/28/2012 DVT (deep venous thrombosis) 08/15/2012 Phlebitis 08/15/2012 Migraine 08/15/2012 Herpes simplex 08/15/2012 Immunizations Name Administration Dates Next Due Td Adult (not absorbed) 03/15/2001 Social History Tobacco Use Types Packs/Day Years Used Date Smoking Tobacco: Never Smokeless Tobacco: Never Sex and Gender Information Value Date Recorded Sex Assigned at Not on file Gender Identity Not on file Sexual Orientation Not on file Last Filed Vital Signs Vital Sign Reading [...] Mass Index 27.93 05/25/2020 10:52 AM EDT Plan of Treatment Health Maintenance Due Date Last Done Comments CT Colonography 1955 Colonoscopy 1955 Colorectal Cancer Screening 1955 FIT DNA 1955 FIT 1955 Sigmoidoscopy (10 year) with FIT yearly 1955 Sigmoidoscopy 1955 Hepatitis C Screening 05/19/1975 HPV test 05/19/1987 PAP Smear 05/19/1987 Breast Cancer Share Decision Needed 1997 Breast Cancer screening 1997 Tetanus/Diphtheria/Pertussis Vaccines (1 - Tdap) 03/1603/15/2001 Zoster vaccine (1 of 2) 05/19/2007 Advance Directive 2012 Bone Density Scan 2022 Pneumoccocal Vaccine: 65+ (1 of 1 - PCV) 2022 Covid-19 Vaccine (1 - 2022- season) 2023 Influenza (Flu) vaccine (1 o f 1 - Influenza standard series) 11/05/2023 Care Teams Fleet Operations Manager Relationship Specialty Start Date End Date Zenyep Dolan APRN PCP - General Family Medicine 03/13/20
--- OUTSIDE RECORDS SUMMARY | 2024-01-04 14:24 | XMS_ITS | Encounter Summary ---
Author Organization [facility] Address [address] [place] [address] Care Team Providers Care Peer Counselor Name Role Phone Unavailable Primary Care Provider Unavailabl e Encounter Details Date Type Department Care Team (Late st Contact Info) Description 05/15/2006 Results Only [facility] - Maple conversion [address] [place] [address] Juliet Mercer, MAYNOR Social History Tobacco Use [...] Priority Date/Time Associated Diagnosis Comments CYTOPATHOLOGY Routine 05/15/2006 0:00 EDT documented in this encounter Results * CYTOPATHOLOGY (05/15/2006 0:00 EDT) Pathology Report: CYTOPATHOLOGY REPORT Reports generated via electronic interface contain original data; however they are lacking the format of the original report. Caution should be taken when reading/interpreti ng unformatted reports. Name: ? ZHANE PARRA ? Accession #: ? [id number] : ? 1955 (Age: 50) ??F ?Collect Date: ? 05/15/2006 Location: ? [facility] ? Receive Date: ? 05/17/2006 Provider: ?JULIET MERCER ROTARY ADJUSTER Copy to: ? Specimen/Source: ?ThinPrep Pap Test, Cervix/Endocervix, processed on Guidefitter ThinPrep Imaging System, with manual evaluation Last Menstrual Period: ? 05/15/06 (today) Previous Gynecologic Pathology: ? Benign cellular changes: 05/04 Other: ? HPVA - HPV testing requested if ASC-US on the current ThinPrep Pap test. ? SPECIMEN ADEQUACY ? Satisfactory for Evaluation - transformation zone component present GENERAL CATEGORIZATION ? Negative for Intraepithelial Lesion or Malignancy ? Document reviewed and electronically signed by: ? Alice Shahid, SCT(ASCP) ? Report Date: ??2006 12:07 End of Report [facility] [place] 05/15/2006 05/17/2006 Juliet Mercer NP PATHOLOGY ORDERABLES Performing Organization Address City/State/[facility] Co de Phone Number [facility] [address] [place] [address] documented in this encounter Visit Diagnoses Not on filedocumented in this encounter
--- OUTSIDE RECORDS SUMMARY | 2024-01-04 14:24 | XMS_ITS | Encounter Summary ---
Author Organization [facility] Address [address] [place] [address] Care Team Providers Care Application Tester Name Role Phone Alicia Brock MD Primary Care Provider [phone] Encounter Details Date Type Department Care Team (Late st Contact Info) Description 09/18/[address] [facility] [phone] Arabella Berg MD [address] [place] [phone] Social History Tobacco Use Types Packs/Day Years Used Date Smoking Tobacco: Never Assessed Sex and Gender Information Value Date Recorded Sex Assigned at Not on file Gender Identity Not on file Sexual Orientation Not on file documented as of this encounter Plan of Treatment Not on file documented as of this encounter Procedures Procedure Name Priority Date/Time Associated Diagnosis Comments SURGICAL PATHOLOGY Routine 09/18/2018 16 :03 EDT documented in this encounter Results * SURGICAL PATHOLOGY (09/18/2018 16:03 EDT) Pathology Report: SURGICAL PATHOLOGY REPORT Reports generated via electronic interface contain original data; however they are lacking the format of the original report. Caution should be taken when reading/interpret ing unformatted reports. Name: ? ZHANE PARRA ? Accession #: ? [id number] ? : ? 1955 (Age: 63) ??F ? Collect Date: ? 09/18/2018 ? Location: ? [facility] ? Receive Date: ? 09/18/2018 ? Provider: ARABELLA BERG MD Copy to: DOMENICO HARRISON PAC ? Final Pathologic Diagnosis: A. COLON, ASCENDING, POLYP, BIOPSY: - ??Fragments of tubular adenoma. Document reviewed and electronically signed by: MARKO CASIANO MD Report ??Date: 09/19/2018 14:10 By the signature above, the attending physician certifies that he/she has personally conducted a gross and/or microscopic examination of the described specimens and rendered or confirmed the above diagnosis. Specimen(s) Received: Ascending colon polyp Clinical History: Hx of colon polyps Gross Description: ? Received in formalin labelled with proper patient identification (initials C, G) and ascending colon polyp are two fragments of wu tissue measuring 0.2 cm and 0.3 in greatest dimension. The specimens are submitted entirely in 1. SAJI Lemus (ASCP) 09/18/2018 4:24 PM End of Report [facility] 09/18/2018 16:0 3 EDT 09/18/2018 16:03 EDT Arabella Berg MD PATHOLOGY ORDERABLES [facility] [address] [place] [address] documented in this encounter Visit Diagnoses Not on filedocumented in this encounter Care Teams Application Tester Relationship Specialty Start Date End Date Alicia Brock MD [address] [place] [address] PCP - General 07/14/15 documented as of this encounter
--- OUTSIDE RECORDS SUMMARY | 2024-01-04 14:24 | XMS_ITS | Encounter Summary ---
Author Organization [facility] Address [address] [place] [address] Care Team Providers Care Railway Signalling Engineer Name Role Phone Unavailable Primary Care Provider Unavailabl e Encounter Details Date Type Department Care Team (Latest Contact Info) Description 10/23/2013 13:59 EDT - 10/23/2013 23:59 EDT Hospital Encounter [address] [address] Unknown, Provider, MD Discharge Disposition: Home or Self Care Social History Tobacco Use Types Packs/Day Years Used Date Smoking Tobacco: Never Assessed Sex and Gender Information Value Date Recorded Sex Assigned at Not on file Gender Identity Not on file Sexual Orientation Not on file documented as of this encounter Discharge Disposition Disposition Code Departure Means Destination Home or Self Correction documented in this encounter Plan of Treatment Not on file documented as of this encounter Visit Diagnoses Not on filedocumented in this encounter
--- OUTSIDE RECORDS SUMMARY | 2024-01-04 14:24 | XMS_ITS | Encounter Summary ---
Author Organization [facility] Address [address] [place] [address] Care Team Providers Care Hotel Yardperson Name Role Phone Unavailable Primary Care Provider Unavailabl e Encounter Details Date Type Department Care Team (Late st Contact Info) Description 08/12/2009 Results Only [facility] Services - [facility] ([facility] [address] [place], [place] [address] Jean Mills MD [facility] [address] [place] [address] Social History Tobacco Use Types Packs/Day Years [...] Comments HPV DETECTION, HIGH RISK TYPES Routine 08/12/2009 13:54 EDT CYTOPATHOLOGY Routine 08/12/2009 0:00 EDT documented in this encounter Results * HUMAN PAPILLOMA VIRUS DNA TEST (08/12/2009 13:54 EDT) Specimen Description Cervix, ThinPrep vial [facility] Result Quantity not sufficient. [facility] Report Status Final 08/18/2009 [facility] 08/12/2009 13:5 4 EDT 08/18/2009 13:54 EDT Jean Mills MD MICROBIOLOGY - GENER AL ORDERABLES [facility] [address] [place] [address] * CYTOPATHOLOGY (08/12/2009 0:00 EDT) Pathology Report: CYTOPATHOLOGY REPORT ? Reports generated via electronic interface contain original data; ? however they are lacking the format of the original report. ? Caution should be taken when reading/interpreti ng unformatted reports. ? Name: ? ZHANE PARRA ? Accession #: ? [id number] ? : ? 1955 (Age: 54) ??F ?Collect Date: ? 08/12/2009 ? Location: ? [facility] ? Receive Date: ? 08/17/2009 ? Provider: ?JEAN READY MD ? Copy to: ? Specimen/Source: ?Pap Test, Cervix/Endocervix, ThinPrep Imaging System ? with manual evaluation ? Last Menstrual Period: ? 5/31/10 ? Other: ? HPVDX - HPV testing requested regardless of diagnosis on current ThinPrep Pap ?? test. ? SPECIMEN ADEQUACY ? Satisfactory for Evaluation ? - transformation zone component present ? GENERAL CATEGORIZATION ? Negative for Intraepithelial Lesion or Malignancy ? Document reviewed and electronically signed by: ? Alice B. Kleber, SCT(ASCP) ? Report Date: ??08/18/2009 09:46 ? End of Report ? [facility] [place] 08/12/2009 08/17/2009 Jean Mills MD PATHOLOGY ORDERABLES [facility] [address] [place] [address] documented in this encounter Visit Diagnoses Not on filedocumented in this encounter
--- OUTSIDE RECORDS SUMMARY | 2024-01-04 14:24 | XMS_ITS | Encounter Summary ---
Author Organization [facility] Address [address] [place] [address] Care Team Providers Care Financial Services Consultant Name Role Phone Unavailable Primary Care Provider Unavailabl e Encounter Details Date Type Department Care Team (Late st Contact Info) Description 07/13/2004 Results Only [facility] - Maple conversion [address] [place] [address] Ayana Lam, [facility] [address] [place] [address] [place] [address] Social History Tobacco Use Types Packs/Day Years Used Date Smoking Tobacco: Never Assessed Sex and Gender Information Value Date Recorded Sex Assigned at Not on file Gender Identity Not on file Sexual Orientation Not on file documented as of this encounter Plan of Treatment Not on file documented as of this encounter Procedures Procedure Name Priority Date/Time Associated Diagnosis Comments CYTOPATHOLOGY Routine 07/13/2004 0:00 EDT documented in this encounter Results * CYTOPATHOLOGY (07/13/2004 0:00 EDT) Pathology Report: CYTOPATHOLOGY REPORT Reports generated via electronic interface contain original data; however they are lacking the format of the original report. Caution should be taken when reading/interpreti ng unformatted reports. Name: ? ZHANE PARRA ? Accession #: ? [id number] : ? 1955 (Age: 49) ??F ?Collect Date: ? 07/13/2004 Location: ? [facility] ? Receive Date: ? 07/15/2004 Provider: ?AYANA LAM SHAPER SET UP OPERATOR Copy to: ? Specimen/Source: ?ThinPrep Pap Test, Cervix/Endocervix Last Menstrual Period: ? 06/08 Previous Gynecologic Pathology: ? Benign cellular changes Other: ? HPVA - HPV testing requested if ASC-US on the current ThinPrep Pap test. ? SPECIMEN ADEQUACY ? Satisfactory for Evaluation - transformation zone component present GENERAL CATEGORIZATION ? Negative for Intraepithelial Lesion or Malignancy ? Document reviewed and electronically signed by: ? Alice Shahid, SCT(ASCP) ? Report Date: ??07/21/2004 08:47 End of Report [place] [place] 07/13/2004 07/15/2004 Ayana Lam SHAPER SET UP OPERATOR PATHOLOGY ORDERABLES Performing Organization Address City/State/[facility] Co de Phone Number [facility] [place] [address] [place] [address] documented in this encounter Visit Diagnoses Not on filedocumented in this encounter
--- OUTSIDE RECORDS SUMMARY | 2024-01-04 14:24 | XMS_ITS | Encounter Summary ---
Author Organization [facility] Address [address] [place] [address] Care Team Providers Care Neurosurgical Nurse Practitioner Name Role Phone Unavailable Primary Care Provider Unavailabl e Encounter Details Date Type Department Care Team (Late st Contact Info) Description 05/12/1999 Results Only [facility] - Maple conversion [address] [place] [address] Juliet Mercer, MAYNOR Social History Tobacco Use [...] Priority Date/Time Associated Diagnosis Comments CYTOPATHOLOGY Routine 05/12/1999 9:20 EST documented in this encounter Results * CYTOPATHOLOGY (05/12/1999 9:20 EST) Pathology Report: CYTOPATHOLOGY REPORT Reports generated via electronic interface contain original data; however they are lacking the format of the original report. Caution should be taken when reading/interpreti ng unformatted reports. Name: ? ZHANE PARRA ? Accession #: ? [id number] : ? 1955 (Age: 43) ??F ?Collect Date: ? 05/12/1999 Location: ?Receive Date: ? 05/12/1999 Provider: ?JULIET MERCER NP Copy to: ?JULIET MERCER NP ? Specimen/Source: ?Bottle Sorter ThinPrep Last Menstrual Period: ? GYNECOLOGIC ??CYTOPATHOLOGY ??REPORT Name: REED,ZHANE ?[facility] : 1955 ?? 43Y F ?Client ID: [id number] SS#: ? Clinician: ARSEN MACHINE DEICER ELEMENT WINDER, WILLOW ?? Location: [facility] ??Copy to: ?? Specimen: ?Bottle Sorter ThinPrep ? Source: Cervix/Endocervix ?Collected: 05/10/99 ? Received: 05/12/1999 ?LMP: 04/21/99 ? Hormone Therapy: No ? : No ? Radiation Therapy: No ?? Post : No ?Chemotherapy: No ?IUD: No ? Prev Abnormal Pap: No ?? Clinical Hx: ?(Blank jaimes indicate information not provided on requisition) SPECIMEN ADEQUACY: ? Satisfactory For Evaluation ?? GENERAL CATEGORIZATION: ? WITHIN NORMAL LIMITS ? Reviewed And Electronically Signed By: ? Alyson Caballero, CT(ASCP) ? Report Date: ?? 05/12/1999 [facility] Archived Tests - Final Diagnosis Text Field: Clinical History : ? Document reviewed and electronically signed by: ? Conversion ? Report Date: ??05/12/1999 00:00 End of Report [place] [place] 05/12/1999 9:20 EST 05/12/1999 9:21 EST Juliet Mercer NP PATHOLOGY ORDERABLES [facility] [place] [address] [place] [address] documented in this encounter Visit Diagnoses Not on filedocumented in this encounter
--- OUTSIDE RECORDS SUMMARY | 2024-01-04 14:24 | XMS_ITS | Clinical Summary ---
Author Organization [facility] Address [address] [place] [address] Care Team Providers Care Associate Director Qa Name Role Phone Alicia Brock MD Primary Care Provider [phone] Social History Tobacco Use Types Packs/Day Years Used Date Smoking Tobacco: Never Assessed Interpersonal Safety Answer Date Record ed Physically Hurt Never 10/06/2019 Verbally Threaten Not on file 10/06/2019 Sex and Gender Information Value Date Recorded Sex Assigned at Not on file Gender Identity Not on file Sexual Orientation Not on file Plan of Treatment Health Maintenance Due Date Last Done Comments Hepatitis C Screen 1955 RSV Immunization ( o r 60+ Years) (1 - 1-dose 60+ series) 2017 Fall Risk Screening 2022 COVID-19 Vaccine ( season) 2022 Care Teams Associate Director Qa Relationship Specialty Start Date End Date Alicia Brock MD [address] [place] [address] PCP - General 07/14/15
--- OUTSIDE RECORDS SUMMARY | 2024-01-04 14:24 | XMS_ITS | Encounter Summary ---
Author Organization [facility] Address [address] [place] [address] Care Team Providers Care Aix Administrator Name Role Phone Unavailable Primary Care Provider Unavailabl e Encounter Details Date Type Department Care Team (Late st Contact Info) Description 07/08/2002 Results Only [facility] - Maple conversion [address] [place] [address] Juliet Mercer, MAYNOR Social History Tobacco Use [...] Priority Date/Time Associated Diagnosis Comments CYTOPATHOLOGY Routine 07/08/2002 0:00 EDT documented in this encounter Results * CYTOPATHOLOGY (07/08/2002 0:00 EDT) Pathology Report: CYTOPATHOLOGY REPORT Reports generated via electronic interface contain original data; however they are lacking the format of the original report. Caution should be taken when reading/interpreti ng unformatted reports. Name: ? ZHANE PARRA ? Accession #: ? [id number] : ? 1955 (Age: 47) ??F ?Collect Date: ? 07/08/2002 Location: ? [facility] ? Receive Date: ? 07/09/2002 Provider: ?JULIET MERCER SUPERVISOR INSULATION Copy to: ? Specimen/Source: ?ThinPrep Pap Test, Cervix/Endocervix Last Menstrual Period: ? 07/02/02 Previous Gynecologic Pathology: ? Benign cellular changes: 05/04, 06/05 Negative ? SPECIMEN ADEQUACY ? Satisfactory for Evaluation - transformation zone component present GENERAL CATEGORIZATION ? Negative for Intraepithelial Lesion or Malignancy ? Document reviewed and electronically signed by: ? Ly Bain, CT(ASCP) ? Report Date: ??07/15/2002 14:35 End of Report [place] 07/08/2002 07/09/2002 Juliet Mercer NP PATHOLOGY ORDERABLES [facility] [place] [address] [place] [address] documented in this encounter Visit Diagnoses Not on filedocumented in this encounter
--- OUTSIDE RECORDS SUMMARY | 2024-01-04 14:24 | XMS_ITS | Encounter Summary ---
Author Organization [facility] Address [facility] [place] [address] Care Team Providers Care Laser Specialist Name Role Phone Jean Mills MD Primary Care Provider [phone] Reason for Visit * Reason Comments Follow-up Encounter Details Date Type Department Care Team (Late st Contact Info) Description 09/21/2012 3:00 PM EDT Follow-Up [place] [address] Debbie Richards MD [facility] [address] [place] [address] Thrombosis (Primary Dx) Discharge Disposition: Home Social History Tobacco Use Types Packs/Day Years Used Date Smoking Tobacco: Never Sex and Gender Information Value Date Recorded Sex Assigned at Not on file Gender Identity Not on file Sexual Orientation Not on file documented as of this encounter Last Filed Vital Signs Vital Sign Reading Time Taken Comments Blood Pressure 105/66 09/21/2012 3:17 PM EDT Pulse 82 09/21/2012 3:17 PM EDT Temperature - - Respiratory Rate 16 09/21/2012 3:17 PM EDT Oxygen Saturation 97% 09/21/2012 3:17 PM EDT Inhaled Oxygen Concentration - - Weight 60 kg (132 lb 4.4 oz) 09/21/2012 3:17 PM EDT Height 159.5 cm (5' 2.8) 09/21/2012 3:17 PM EDT Body Mass Index 23.58 09/21/2012 3:17 PM EDT documented in this encounter Progress Notes * Debbie Covarrubias MD - 09/28/2012 4:08 PM EDT [facility] [place] [address] [facility] THROMBOSIS FOLLOW-UP DATE OF VISIT 09/21/2012 Patient Zhane Parra 1955 REFERRING PHYSICIAN JEAN MILLS MD PRIMARY CARE PHYSICIAN JEAN MILLS MD THROMBOSIS PROBLEM LIST: Oral contraceptive associated calf DVT of the leg Superficial thrombophlebitis of the right leg Thrombophilia work up: heterozygous prothrombin gene mutation INTERVAL HISTORY: Zhane Parra is a 57 year-old woman with history of varicose vein, recurrent thromboembolism, who is seen in follow-up to discuss thrombophilia work up. Zhane has been doing well. She denies any leg swelling or pain. She was recently evaluated by Dr. Guaman for radiofrequency ablation. I reviewed the result of the ultrasound performed by Dr. Guaman. Imaging Studies: U/S of the right thigh showed an approximately 6mm greater saphenous vein with only slight reflux. The deep system at the groin showed augmentation with calf compression and no evidence of reflux. On the left the greater saphenous vein was also ~6mm in diameter but with more prominent reflux. The deep system in the left groin showed augmentation with calf compression and no evidence of reflux. Given that the varicose vein has not bothered her much, the decision was made to hold off the procedure and reconsider if it gets worse in the future. She has been wearing compression stocking more regularly and she felt comfortable in them. She denies any shortness of breath or chest pain. I requested her previous report of ultrasound doppler. Ultrasound of the left leg 08/25/2004 No DVT Ultrasound of the left leg 07/19/2001 DVT involving a calf vein. The femoral and popliteal veins are fully compressible. Ultrasound of the left leg 07/23/2001 No evidence of DVT. Previous thrombus resolved Ultrasound of the right leg 06/27/2012 No evidence of DVT. Superficial thrombophlebitis is noted in the calf, nil else. PAST MEDICAL HISTORY Patient Active Problem List Diagnoses Code ??? DVT (deep venous thrombosis) 453.40 ??? Phlebitis 451.9 ??? Migraine 346.90 ??? Herpes simplex 054.9 ??? Prothrombin gene mutation 289.81 Hypothyroidism Hypercholesterolemia OPERATIVE PROCEDURES S/p rotator cuff surgery MEDICATIONS Current Outpatient Prescriptions on File Prior to Visit Medication Sig Dispense Refill ??? aspirin 325 mg tablet Take 325 mg by mouth daily. ??? RIZATRIPTAN BENZOATE (MAXALT ORAL) Take by mouth as needed. ??? thyroid (ARMOUR) 30 mg tablet Take 30 mg by mouth daily. ??? EPINEPHRINE (EPIPEN IM) ADVERSE DRUG REACTIONS Allergies as of 09/21/2012 - Review Complete 09/21/2012 Allergen Reaction Noted ??? Honey bee venom ??? Wasp venom ??? White-faced hornet venom ??? Yellow hornet venom ??? Yellow jacket venom FAMILY HISTORY Mother is still alive, thyroid problem, diabetes, hypercholesterolemia Father at the age of 93, hx of prostate cancer One brother with pacemaker No know history of VTE SOCIAL HISTORY Likes to hike , swimming [...] No Back/joint pain/swelling No Leg swelling/pain/redness Leg discomfort now and then due to varicose vein - improved with compression stocking Bruising/petechiae/bleeding/melena No Sensory/motor No Polydipsia/polyuria/heat/cold intol No Lumps/bumps/swollen glands No Other Negative except as above PHYSICAL EXAMINATION BP 105/66 Pulse 82 Resp 16 Ht 159.5 cm (5' 2.8) Wt 60 kg (132 lb 4.4 oz) BMI 23.58 kg/m2 SpO2 97% GENERAL: Well-appearing, articulate white female. HEENT: Oropharynx clear; no mucosal lesions, petechiae, bleeding, thrush or ulcers. NECK: Supple; no cervical, supraclavicular or submental adenopathy. BREASTS: Exam deferred. CHEST: Clear to auscultation/percussion. No rales, rhonchi, wheezes. HEART: Regular rate and rhythm; no murmur, rub, gallop ABDOMEN: Soft, non-tender, no hepatosplenomegaly. GENITOURINARY: Exam deferred. EXTREMITIES: No clubbing, cyanosis or edema. No erythema, tenderness or palpable cords. Bilateral varicosities. No skin discoloration or hemosiderin deposits. Peripheral pulses palpable. MUSCULOSKELETAL: Spine nontender. Full ROM all joints. No acutely inflamed joints. SKIN: No ecchymoses, petechiae, ulcers or rashes. LYMPH: No palpable lymph nodes. NEUROLOGIC: Alert, oriented. Speech clear, coherent. No focal deficits noted. PSYCHIATRIC: Appropriate affect, no apparent distress. LABORATORY STUDIES Ref. Range 08/10/2012 15:57 Platelets Latest Range: 145-370 x10(3)/mcL 324 PT Latest Range: 12.0-15.0 sec 12.3 INR Latest Range: 0.9-1.1 0.9 PTT Latest Range: 25-35 sec 25 Fibrinogen Latest Range: 175-450 mg/dL 285 Thrombin Time Latest Range: 15-20 sec 16 Lupus Anticoag Latest Range: Neg Neg APC Resistance Latest Range: >=2.00 2.36 Antithrombin Latest Range: 80-120 % 116 Protein C Act Latest Range: 67-156 % activity 152 Protein S Act Latest Range: 65-123 % activity 105 Homocyst Tot Latest Range: 5-12 mcmol/L 11 B2GPI IgG Latest Range: <=20 unit(s) <21 B2GPI IgM Latest Range: <=20 unit(s) <21 Cardiolipin IgG Latest Range: <=22 GPL unit(s) <23 Cardiolipin IgM Latest Range: <=10 MPL unit(s) <11 Prothrombin Mutation No range found Heterozygous RADIOGRAPHIC STUDIES none IMPRESSION Zhane Parra is a 57 y.o. woman with history of OCP associated calf DVT of the left leg, superficial thrombophlebitis of the right who is here to discuss thrombophilia work up. I reviewed the result of her thrombophilia work up which was unremarkable except she was heterozygous for prothrombin gene mutation. The prothrombin [id number] gene mutation is present in the heterozygous form in up to 2-3% of unselected individuals and is a common cause of hereditary thrombophilia. Heterozygous PT P06868M is a mild risk factor for a first episode of venous thromboembolic disease (VTE) and possibly for recurrent loss but does not appear to be a significant riskfactor for recurrent VTE or for arterial thrombosis in adults under most circumstances. Most individuals with PT K20917G are asymptomatic; however, the thrombotic risk conferred by PT C43309F is ampli fied in the presence of certain other risk factors (e.g., smoking, obesity, contraceptives, ). Zhane is also concerned of her cardiovascular risk (heart attack and stroke) due to family history. As mentioned above the prothrombin gene mutation does not appear to be a significant risk factors, however her hypercholesterolemia is a risk factor for arterial thrombosis. I recommend her to havean annual check up. She has been taking aspirin for her recent superficial thrombophlebitis. She gael uld continue taking a low dose aspirin 81 mg PO daily for cardiovascular prevention. I explained to her that rather than focusing on her inherited thrombophilia that she cannot change,it is more important to focus on other clinical risk factors of VTE that can be identified. She should continue to wear compression stocking regularly to prevent worsening of her varicose vein which is a risk factor. I told her that I am happy to see her family members or children if they are interested to have the testing done. I generally do not recommend to do the testing in every family member. It is more important to have an appropriate consultation to go over each individual risk factor of VTE and discuss about preventative strategies. I reviewed other preventative strategies including maintain good weight/activity, wearing compression on daily basis during waking hours, consider pharmacologic thromboprophylaxis during high risk period such as trauma, surgery, period of immobility, getting up and walking during long car ride/longhaul flight, staying up to date with cancer screening, avoid hormone replacement therapy. Should she plan to undergo an elective surgery in the future, I am happy to see her back to help formulate thromboprophylaxis plan. PLAN/RECOMMENDATIONS 1. Continue aspirin 81 mg PO daily for cardiovascular prevention 2. Recommend wearing daily compression stocking during waking hours 3. Preventative strategies discussed 4. Written material about prothrombin gene mutation given All of her questions were answered at her satisfaction. While I won't see her back for routine follow up, she knows that she can call our office should any questions or concerns arise. I am also happy to see her family members if they are interested to discuss about prothrombin gene mutation. Debbie Covarrubias MD Instructor of Medicine, [facility] documented in this encounter Plan of Treatment Not on file documented as of this encounter Visit Diagnoses Diagnosis Thrombosis- Primary Embolism and thrombosis of unspecified site documented in this encounter Care Teams Laser Specialist Relationship Specialty Start Date End Date Jean Mills MD [facility] [address] [place] [address] [place] [address] PCP - General 08/09/12 03/12/20 documented as of this encounter
--- OUTSIDE RECORDS SUMMARY | 2024-01-04 14:24 | XMS_ITS | Encounter Summary ---
Author Organization [facility] Address [address] [place] [address] Care Team Providers Care Dye Colorist Dyer Name Role Phone Unavailable Primary Care Provider Unavailabl e Encounter Details Date Type Department Care Team ([facility] st Contact Info) Description 05/07/2012 Results Only [facility] [phone] Jean Mills MD [address] [place], [place] [address] Social History Tobacco Use Types Packs/Day Years [...] Diagnosis Comments PAP TEST- RESULT ONLY Routine 05/07/2012 0:00 EST documented in this encounter Results * PAP TEST- RESULT ONLY (05/07/2012 0:00 EST) Pathology Report: CYTOPATHOLOGY REPORT Reports generated via electronic interface contain original data; however they are lacking the format of the original report. Caution should be taken when reading/interpreti ng unformatted reports. Name: ? ZHANE PARRA ? Accession #: ? [id number] ? : ? 1955 (Age: 56) ??F ?Collect Date: ? 05/07/2012 ? Location: ? [facility] ? Receive Date: ? 05/08/2012 ? Provider: JEAN MILLS MD Copy to: ? Final Report SPECIMEN ADEQUACY ? Satisfactory for Evaluation - transformation zone component present GENERAL CATEGORIZATION ? Negative for Intraepithelial Lesion or Malignancy ?? Last Menstrual Period: 04/07/12 Other: Additional clinical information: new sexual partner 2012, still menstrating regularly Specimen/Source: ??Pap Test, Cervix/Endocervix, ThinPrep Imaging System with manual evaluation Document reviewed and electronically signed by: ? Amy Duke, [place](ASCP) ? Report ??Date: 05/10/2012 10:58 HPV with Pap Test ? Date Ordered: ? 05/10/2012 ? Status: ?? Signed Out ?Date Complete: ? 05/14/2012 ? By: ??System Interface ? Date Reported: ? 05/14/2012 ? Interpretation RESULT: Negative for HPV. No E6 or E7 mRNA is detected from HPV types 16,18,31,33,35, 39,45,51,52,56,58, 59,66, and 68 by lead instructor/flight attendant mediated amplification. Comments Document reviewed and electronically signed by: ? System Interface ? Report date: 05/14/2012 By the signature above, the attending physician certifies that he/she has personally conducted a gross and/or microscopic examination of the described specimens and rendered or confirmed the above diagnosis. End of Report [facility] 05/07/2012 05/08/2012 Jean Mills MD PATHOLOGY ORDERABLES [facility] [address] [place] [id number] documented in this encounter Visit Diagnoses Not on filedocumented in this encounter
--- OUTSIDE RECORDS SUMMARY | 2024-01-04 14:24 | XMS_ITS | Continuity of Care Document ---
Author Organization [facility] Address [address] [place] [address] Care Team Providers Care Network Technology Instructor Name Role Phone DOMINICK RODAS Primary Care Physician [phone] Encounter [facility]BR [id number] Date(s): 08/02/22 - 08/02/22 [facility] [address], [place] [address] Encounter Diagnosis Chronic allergic rhinitis(Discharge Diagnosis) - 08/02/22 PND (post-nasal drip)(Discharge Diagnosis) - 08/02/22 Discharge Disposition: Home or Self Care Allergies, Adverse Reactions, Alerts Substance Reaction Severity Status sulfa drugs Unknown Active Wasps Unknown Unknown Active Assessment and Plan Extracted from: Title:Allergy Intradermal Sk in Procedure*, Allergy Skin Prick Test Procedure * Author:SAJI Dill Date:08/02/22 Impression and Plan Diagnosis Chronic allergic rhinitis ([id number] J30.9, Discharge, Medical). PND (post-nasal drip) (RMR18-QQ R09.82, Discharge, Medical). Results The patient has undergone allergy skin testing based on an office protocol today without complication. Based on the results today, pt reacted to box elder, weeds, grasses, alternaria, DMs, cat dander, cockroach. We reviewed a variety of measures including allergen avoidance, dietary link to positive allergy findings, along with conservative measures including nasal saline treatments. An educational pamphlet was provided with specific allergy concepts as well as a copy of allergy skin testing results . Allergy multi-prick test The patient was placed in the allergy room. We reviewed the procedure, risk and complications and obtained consent. The areas of the lower forearm were wiped with alcohol and allowed to dry. The multi-test applicators were applied in usual fashion. After 15 minutes, each reaction site was measured and documented. The areas then were again cleaned with alcohol. The prick test inhaled 37 antigens as documented in the allergy packet. The patient successfully completed portion of the initial allergy screening. Intradermal allergy test Consent was obtained and the patient assumes the risks for in office testing. The upper arms were wiped with alcohol. The areas were appropriately marked for antigen injection. 37 Antigens were injected and distributed between the right to left arms. Each produced a 4 mm wheal. 10 minutes passed and the wheals were measured, confirmed and documented. The patient was symptom free and tolerated the procedure well. The results were recorded and final end points were determined. The patient has been instructed in allergy avoidance as well as the risks and benefits of immunotherapy. The patient was provided their allergy results and will be offered immunotherapy based on the positive results. The patient left the office in stable condition. Orders Orders Ambulatory Procedures: [id number] Intracutaneous tests w/allergenic extracts, immediate reac, specify number of tests [LTTL] (Order): 08/02/2022 12:42 EDT, PND (post-nasal drip) Chronic allergic rhinitis, 40 [address]273 - Percutaneous tests w/ allergenic extracts, includes interp/report, specify number of tests (Order): 08/02/2022 12:42 EDT, PND (post-nasal drip) Chronic allergic rhinitis, 40. Medications acyclovir 400 mg oral tablet 400 mg = 1 tab, Oral, TID, # 14 tab, 0 Refill(s) Start Date: 07/01/22 Status: Ordered ammonium lactate 12% topical cream 1 julianne, Topical, BID, # 140 g, 0 Refill(s) Start Date: 07/01/22 Status: Ordered aspirin 81 mg oral capsule 81 mg = 1 cap, Oral, Daily, do not exceed 48 capsules in 24 hours, # 30 cap, 0 Refill(s) Start Date: 07/01/22 Status: Ordered atorvastatin 10 mg oral tablet 10 mg = 1 tab, Oral, Daily, # 90 tab, 0 Refill(s) Start Date: 07/01/22 Status: Ordered cetirizine 10 mg oral tablet 10 mg = 1 tab, Oral, Daily, # 30 tab, 0 Refill(s) Start Date: 07/01/22 Status: Ordered clobetasol 0.05% topical cream 1 julianne, Topical, BID, # 15 g, 0 Refill(s) Start Date: 07/01/22 Status: Ordered clotrimazole 1% topical cream 1 julianne, Topical, BID, # 15 g, 0 Refill(s) Start Date: 07/01/22 Status: Ordered EPINEPHrine 0.3 mg injectable kit 0.3 mg =, IM, Once, # 1 EA, 0 Refill(s) Start Date: 07/01/22 Status: Ordered ibuprofen 600 mg oral tablet 600 mg = 1 tab, Oral, every 6 hr, # 40 tab, 0 Refill(s) Start Date: 07/01/22 Status: Ordered levothyroxine 75 mcg (0.075 mg) oral capsule 75 mcg = 1 cap, Oral, Daily, # 30 cap, 0 Refill(s) Start Date: 07/01/22 Status: Ordered Maxalt 10 mg oral tablet 10 mg = 1 tab, Oral, Daily, PRN as needed for migraine headache, may repeat dose every 2 hours up to a maximum of 30 mg in 24 hours, # 6 tab, 0 Refill(s) Start Date: 07/01/22 Status: Ordered omeprazole 20 mg oral delayed release capsule 20 mg = 1 cap, Oral, Daily, # 90 cap, 0 Refill(s) Start Date: 07/01/22 Status: Ordered triamcinolone 0.1% topical cream 1 julianne, Topical, BID, # 80 g, 0 Refill(s) Start Date: 07/01/22 Status: Ordered Problem List Condition Confirmation Course Effective Dates Status H ealth Status Informant Bee sting allergy Confirmed Active Xerosis of skin Confirmed Active Epistaxis Confirmed Active Halitosis Confirmed Active Chest pain Confirmed Active Thrombosis of right peroneal vein Confirmed Active Gallbladder disease Confirmed Active GERD (gastroesophageal reflux disease) Confirmed Active Prothrombin gene mutation Confirmed Active Headache Confirmed Active Hemorrhoids Confirmed Active Herpes simplex Confirmed Active Hyperlipidemia Confirmed Active Hypothyroidism Confirmed Active Migraine Confirmed Active Knee pain Confirmed Active Plantar fasciitis Confirmed Active Rectal bleed Confirmed Active Superficial thrombophlebitis Confirmed Active Social History Social History Type Response Tobacco Never tobacco user T obacco Use:. Sex Physician Outpatient Note * SAJI Dill: PERFORM, MODIFY, SIGN, VERIFY Event Display: Office Clinic Note Physician Authored Date: [id number] Patient: SYDNI HOWARD Age: 67 years Sex: Female : 1955 Associated Diagnoses: Chronic allergic rhinitis; PND (post-nasal drip) Author: SAJI Dill Procedure Intradermal Allergy Skin Test Notes. Patient denies asthma, shortness of breath, cough or chest pain. No antihistamines within the last 5 to 7 days. Denies being on beta-alan medication. Last oral intake today. She has a history of environmental allergies with prior allergy testing and IT as a young child. Worse first thing in the morning. SNOT score of 42. Worse symptoms are blowing nose, sneezing, runny nose, PND, thick nasal d/c. She does have cat at home. No longer has dogs. Not around horses. Occ. sinus pressure/infections. She does feel tired by the end of the day. She heats with wood heat. She does have sensitivity to smoke, fragrances, thi soap. 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 Physical Exam GENERAL APPEARANCE: The patient is awake, alert, and oriented and in no acute distress, Appears nutritionally sound, Healthy in appearance, Voice is strong, with no stridor or stertor, Handling secretions without difficulty. PSYCH: affect normal, good eye contact, oriented to person, oriented to place, oriented to time. NEURO: CN???s II-XII grossly intact, Gait is normal, HEENT: The patient is normocephalic with a normal facies with cranial nerves 2 through 12 bilaterally equal and intact. NECK: There is no palpable lymphadenopathy. HEART: regular rate and rhythm. LUNGS: clear to auscultation bilaterally, no wheezes/rhonchi/rales. SKIN: normal across the head and neck. MUSCULOSKELETAL: normal gait and station. Impression and Plan Diagnosis Chronic allergic rhinitis ([id number] J30.9, Discharge, Medical). PND (post-nasal drip) ([id number] R09.82, Discharge, Medical). Results The patient has undergone allergy skin testing based on an office protocol today without complication. Based on the results today, pt reacted to box elder, weeds, grasses, alternaria, DMs, cat dander, cockroach. We reviewed a variety of measures including allergen avoidance, dietary link to positive allergy findings, along with conservative measures including nasal saline treatments. An educational pamphlet was provided with specific allergy concepts as well as a copy of allergy skin testing results . Allergy multi-prick test The patient was placed in the allergy room. We reviewed the procedure, risk and complications and obtained consent. The areas of the lower forearm were wiped with alcohol and allowed to dry. The multi-test applicators were applied in usual fashion. After 15 minutes, each reaction site was measured and documented. The areas then were again cleaned with alcohol. The prick test inhaled 37 antigens as documented in the allergy packet. The patient successfully completed portion of the initial allergy screening. Intradermal allergy test Consent was obtained and the patient assumes the risks for in office testing. The upper arms were wiped with alcohol. The areas were appropriately marked for antigen injection. 37 Antigens were injected and distributed between the right to left arms. Each produced a 4 mm wheal. 10 minutes passed and the wheals were measured, confirmed and documented. The patient was symptom free and tolerated theprocedure well. The results were recorded and final end points were determined. The patient has been instructed in allergy avoidance as well as the risks and benefits of immunotherapy. The patient was provided their allergy results and will be offered immunotherapy based on the positive results. The patient left the office in stable condition. Orders Orders Ambulatory Procedures: [id number] Intracutaneous tests w/allergenic extracts, immediate reac, specify number of tests [LTTL] (Order): 08/02/2022 12:42 EDT, PND (post-nasal drip) Chronic allergic rhinitis, 40 [address]25 - Percutaneous tests w/ allergenic extracts, includes interp/report, specify number of tests (Order): 08/02/2022 12:42 EDT, PND (post-nasal drip) Chronic allergic rhinitis, 40. Electronically Signed on 08/02/22 12:47 PM SAJI Dill Patient Care team information Care Team Personnel Name: DOMINICK RODAS Position: No Access Member Role: Primary Care Physician Address: Address: [address] [place] [id number] [place] [address]
--- OUTSIDE RECORDS SUMMARY | 2024-01-04 14:24 | XMS_ITS | Encounter Summary ---
Author Organization [facility] Address [address] [place] [address] Care Team Providers Care Commercial Pest Control Representative Name Role Phone Unknown, Provider Primary Care Provider Unava ilable Encounter Details Date Type Department Care Team (Late st Contact Info) Description 07/09/2015 Results Only [facility] [phone] Domenico Harrison PA-C [address] [place] [address] Social History Tobacco Use Types Packs/Day Years Used Date Smoking Tobacco: Never Assessed Sex and Gender Information Value Date Recorded Sex Assigned at Not on file Gender Identity Not on file Sexual Orientation Not on file documented as of this encounter Plan of Treatment Not on file documented as of this encounter Procedures Procedure Name Priority Date/Time Associated Diagnosis Comments SURGICAL PATHOLOGY Routine 07/09/2015 5:46 EDT documented in this encounter Results * SURGICAL PATHOLOGY (07/09/2015 5:46 EDT) Pathology Report: SURGICAL PATHOLOGY REPORT Reports generated via electronic interface contain original data; however they are lacking the format of the original report. Caution should be taken when reading/interpreting unformatted reports. Name: ? ZHANE PARRA ? Accession #: ? [id number] ? : ? 1955 (Age: 60) ??F ? Collect Date: ? 07/09/2015 ? Location: ? [facility] ? Receive Date: ? 07/11/2015 ? Provider: DOMENICO HARRISON PAC Copy to: ? 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 ??See comment. Comment: Numerous sections of the biopsy were reviewed. ??The biopsy shows epidermal hyperplasia with hyperkeratosis, basal hyperpigmentation, and sparse chronic inflammation within the dermis. ??In areas, the epidermis has morphologic features suggestive of a seborrheic keratosis. ??Some areas appear to have superimposed changes of lichen simplex chronicus (lichenification). ??There is minimal inflammation that has a non-specific pattern. ??Although nummular eczema is a consideration, the lack of spongiosis and character of the epidermal hyperplasia make this less likely. (Dr. Andrew)/[facility] Microscopic Description: Sections consist of a bisected punch biopsy of skin to the deep reticular dermis. ??There is orthohyperkeratosis with focal parakeratosis. ??The epidermis is moderately acanthotic with elongate and somewhat clubbed rete ridges and areas of papillomatosis. ??Melanin pigment is evident along the basal zone and is irregularly distributed within the keratinocytes. The keratinocytes show loose hand packer maturation with a preserved granular layer. ??Within the dermis, there is patchy sparse chronic inflammation consisting of small lymphocytes and histiocytes. Multiple deeper sections show similar features. ??No fungal organisms are identified on sections prepared with PAS-amylase stain. (Dr. Andrew)/[facility] Document reviewed and electronically signed by: CARLOS ANDREW MD Report ??Date: 07/14/2015 16:33 By the signature above, the attending physician certifies that he/she has personally conducted a gross and/or microscopic examination of the described specimens and rendered or confirmed the above diagnosis. Specimen(s) Received: 4 mm punch bx Clinical History: Hyperpigmented skin, dry in appearance; itchy x2 yrs, area measuring 2.0 x 3.0 cm mid-back Gross Description: ? Received in formalin labelled with proper patient identification (initials C, G) and mid back lesion is a punch biopsy of pink-wu skin (0.4 cm in diameter and 0.4 cm in thickness). There is an eccentric wu-brown macule (0.3 x 0.3 x 0.1 cm). The specimen is bisected and entirely submitted in 1. Vanessa Bello 07/13/2015 8:35 AM End of Report [facility] 07/09/2015 5:46 EDT 07/11/2015 5:46 EDT Domenico Harrison PA-C PATHOLOGY ORDERAB LES [facility] [address] [place] [address] documented in this encounter Visit Diagnoses Not on filedocumented in this encounter Care Teams Commercial Pest Control Representative Relationship Specialty Start Date End Date Unknown, Provider, PCP - General 10/25/13 07/13/15 documented as of this encounter
--- OUTSIDE RECORDS SUMMARY | 2024-01-04 14:24 | XMS_ITS | Encounter Summary ---
Author Organization [facility] Address [address] [place] [address] Care Team Providers Care Political Theory Professor Name Role Phone Unavailable Primary Care Provider Unavailabl e Encounter Details Date Type Department Care Team (Late st Contact Info) Description 06/14/2001 Results Only [facility] - [facility] [address] [place] [address] Juliet Mercer, MAYNOR Social History Tobacco Use [...] Priority Date/Time Associated Diagnosis Comments CYTOPATHOLOGY Routine 06/14/2001 0:00 EDT documented in this encounter Results * CYTOPATHOLOGY (06/14/2001 0:00 EDT) Pathology Report: CYTOPATHOLOGY REPORT Reports generated via electronic interface contain original data; however they are lacking the format of the original report. Caution should be taken when reading/interpreti ng unformatted reports. Name: ? ZHANE PARRA ? Accession #: ? [id number] : ? 1955 (Age: 46) ??F ?Collect Date: ? 06/14/2001 Location: ? [facility] ? Receive Date: ? 06/18/2001 Provider: ?JULIET MERCER GUN STOCK CHECKER Copy to: ? Specimen/Source: ?ThinPrep Pap Test, Cervix/Endocervix Last Menstrual Period: ? 05/28/01 ? SPECIMEN ADEQUACY ? Satisfactory for Evaluation - transformation zone component present GENERAL CATEGORIZATION ? Negative for Intraepithelial Lesion or Malignancy ? Document reviewed and electronically signed by: ? Alice Shahid, SCT(ASCP) ? Report Date: ??06/21/2001 09:08 End of Report [facility] [place] 06/14/2001 06/18/2001 Juliet Mercer NP PATHOLOGY ORDERABLES [facility] [address] [place] [address] documented in this encounter Visit Diagnoses Not on filedocumented in this encounter
--- OUTSIDE RECORDS SUMMARY | 2024-01-04 14:24 | XMS_ITS | Encounter Summary ---
Author Organization [facility] Address [facility] [place] [address] Care Team Providers Care Alternative Education Teacher Name Role Phone Rochelle Mills MD Primary Care Provider [phone] Encounter Details Date Type Department Care Team (Late st Contact Info) Description 09/12/2012 3:00 PM EDT Office Visit [facility] [address] [place] [address] Sher Guaman MD [facility] [place] [address] Varicose veins (Primary Dx) Discharge Disposition: Home Social History Tobacco Use Types Packs/Day Years Used Date Smoking Tobacco: Never Sex and Gender Information Value Date Recorded Sex Assigned at Not on file Gender Identity Not on file Sexual Orientation Not on file documented as of this encounter Last Filed Vital Signs Vital Sign Reading Time Taken Comments Blood Pressure 112/70 09/12/2012 3:02 PM EDT Pulse 71 09/12/2012 3:02 PM EDT Temperature - - Respiratory Rate - - Oxygen Saturation 99% 09/12/2012 3:02 PM EDT Inhaled Oxygen Concentration - - Weight 61.2 kg (135 lb) 09/12/2012 3:02 PM EDT Height 157.5 cm (5' 2) 09/12/2012 3:02 PM EDT Body Mass Index 24.69 09/12/2012 3:02 PM EDT documented in this encounter Progress Notes * Sher Guaman MD - 09/12/2012 4:26 PM EDT Vascular and Interventional Radiology Office Note Zhane Parra [id number] [address] [place] [address] : 1955 Age: 57 y.o. 09/12/2012 Chief Complaint: varicose veins. History of Present Illness: 57 y.o. woman referred by Dr. Covarrubias with history of oral contraceptive associated DVT and more recently an episode of superficial thrombophlebitis for discussion of possible vein ablation. Ms. Parra developed a left calf DVT ~12 yrs ago shortly after starting control pills. Shehad right calf superficial thrombophlebitis this past spring that she believes started in May butwas diagnosed in June. She had initially thought discomfort was due to exercise. She does have varicose veins which cause twinges and a sensation of pressure. Since 08/10/12 she has been wearing compression stockings early in the day and late in the day, not otherwise due to heat. The compression stocking do help somewhat with the discomfort. Has not had leg edema. Surgical History: Rotator cuff repair ~2008, [facility] Patient Active Problem List Diagnoses Code ??? DVT (deep venous thrombosis) 453.40 ??? Phlebitis 451.9 ??? Migraine 346.90 ??? Herpes simplex 054.9 Smoking History: None. Current Outpatient Prescriptions on File Prior to Visit Medication Sig Dispense Refill ??? thyroid (ARMOUR) 30 mg tablet Take 30 mg by mouth daily. ??? EPINEPHRINE (EPIPEN IM) Allergies Allergen Reactions ??? Honey Bee Venom ??? Wasp Venom ??? White-Faced Hornet Venom ??? Yellow Hornet Venom ??? Yellow Jacket Venom Focused physical exam: Extremities: Scattered varicosities, no skin breakdown. Imaging Studies: U/S of the right thigh [...] calf compression and no evidence of reflux. Assessment/Discussion: I showed Ms. Parra the Ultrasound findings as we went along. Prior to the U/S I had explained the idea of reflux causing varicosities and discomfort. I went over the Radiofrequency Ablation of the greater saphenous vein and explained probe placement at approximately the knee level to minimize the risk of nerve injury were we to access the vein more inferiorly. I explained the potential for DVT and the need for anticoagulation should that happen as explanation of why we will leave a short segment of the upper GSV untreated. I quoted a DVT risk of ~5% and explained that if that were to occur then the anticoagulation would be for three months. I typically have pts come back for f/u clinic visit with U/S at ~1 week and ~1 month post ablation to check for DVT. I went over our use of moderate sedation during the procedure and tumescent anesthesia along the expected treatment course for pain control and to minimize the risk of skin burn. I quoted her a success rate of approximately 90% at two years. Ms. Parra does not feel her veins bother her enough to warrant treatment at present. She will contact me if they become symptomatic enough that she would like to have treatment. Will continue to wear the compression stocking as much as she can, hot weather permitting. I explained she is not missing a window of opportunity by waiting. If anything the veins will become larger over time and thus easier to access. Problems beyond discomfort such as venous ulcers unlikely with superficial system reflux. Plan: Ms. Parra will contact me if her veins bother her enough that she decides to have treatment. 30 minutes of this 40 minute visit was spent in counseling and coordination of care. documented in this encounter Plan of Treatment Not on file documented as of this encounter Procedures Procedure Name Priority Date/Time Associated Diagnosis Comments IR OTHER RELATED PROCEDURES Routine 09/12/2012 2:30 PM EDT documented in this encounter Results * IR other related procedures (09/12/2012 2:30 PM EDT) Anatomical Region Laterality Modality X-Ray Angiograph y 09/12/2012 2:30 PM EDT Narrative 09/26/2012 9:01 AM EDT Chief Complaint: varicose veins with discomfort. Imaging Studies: U/S of the right thigh [...] calf compression and no evidence of reflux. Procedure Note Sher Guaman MD - 09/26/2012 Chief Complaint: varicose veins with discomfort. Imaging Studies: U/S of the right thigh showed an approximately 6mmgreater saphenous vein with only slight reflux. The deep system at the groinshowed augmentation with calf compression and no evidence of reflux. On the leftthe greater saphenous vein was also ~6mm in diameter but with more prominent reflux. The deep system in the left groin showed augmentation with calf compression and no evidence of reflux. Sher Guaman MD IMG IR ORDERABLES documented in this encounter Visit Diagnoses Diagnosis Varicose veins- Primary Asymptomatic varicose veins documented in this encounter Care Teams Alternative Education Teacher Relationship Specialty Start Date End Date Rochelle Mills MD [facility] [address] [place] [address] [place] [address] PCP - General 08/09/12 03/12/20 documented as of this encounter
--- OUTSIDE RECORDS SUMMARY | 2024-01-04 14:24 | XMS_ITS | Encounter Summary ---
Author Organization [facility] Address [address] [place] [address] Care Team Providers Care Heliotherapist Name Role Phone Unknown, Provider Primary Care Provider Unava ilable Encounter Details Date Type Department Care Team (Late st Contact Info) Description 10/23/2013 Results Only [facility] [phone] Luba Lyon, DO [address] [place] [address] Social History Tobacco Use Types Packs/Day Years Used Date Smoking Tobacco: Never Assessed Sex and Gender Information Value Date Recorded Sex Assigned at Not on file Gender Identity Not on file Sexual Orientation Not on file documented as of this encounter Plan of Treatment Not on file documented as of this encounter Procedures Procedure Name Priority Date/Time Associated Diagnosis Comments SURGICAL PATHOLOGY Routine 10/23/2013 12 :28 EDT documented in this encounter Results * SURGICAL PATHOLOGY (10/23/2013 12:28 EDT) Pathology Report: SURGICAL PATHOLOGY REPORT Reports generated via electronic interface contain original data; however they are lacking the format of the original report. Caution should be taken when reading/interpreti ng unformatted reports. Name: ? ZHANE PARRA ? Accession #: ? [id number] ? : ? 1955 (Age: 58) ??F ? Collect Date: ? 10/23/2013 ? Location: ? [facility] ? Receive Date: ? 10/24/2013 ? Provider: LUBA LYON DO Copy to: GAUTAM JUARES MD ? Final Pathologic Diagnosis: COLON, SIGMOID, POLYP, BIOPSY: - ??Tubular adenoma. - ??Deeper levels examined. Document reviewed and electronically signed by: REINA ROSARIO MD Report ??Date: 10/29/2013 16:04 By the signature above, the attending physician certifies that he/she has personally conducted a gross and/or microscopic examination of the described specimens and rendered or confirmed the above diagnosis. Specimen(s) Received: Polyp sigmoid colon Clinical History: Not listed Gross Description: ? Received in formalin labelled with proper patient identification (initials C, G) and polyp sigmoid colon is a single wu-white polypoid tissue (0.3 x 0.2 x 0.2 cm). Submitted intact in 1. Iliana Villa 10/25/2013 01:20 PM End of Report [facility] [place] 10/23/2013 12:2 8 EDT 10/24/2013 12:28 EDT Luba Lyon DO PATHOLOGY ORDERABLES [facility] [address] [place] [address] documented in this encounter Visit Diagnoses Not on filedocumented in this encounter Care Teams Heliotherapist Relationship Specialty Start Date End Date Unknown, Provider, PCP - General 10/25/13 07/13/15 documented as of this encounter
--- NOTE | 2024-01-04 14:30 | DI.US_ITS ---
Exam(s) US LOWER EXTREMITY VENOUS RT EXAM: US LOWER EXTREMITY VENOUS RT CLINICAL HISTORY: Hx DVT, calf pain, recent injury TECHNIQUE: Grayscale, color, and doppler imaging of the deep venous system of the right lower extrem ity was performed. COMPARISON: US US LOWER EXTREMITY VENOUS RT from 03/30/2020 FINDINGS: There is no evidence of intraluminal thrombus and there is normal compression and augmentation demons trated within the common femoral vein, femoral vein, and popliteal vein. In the ipsilateral calf the interrogated veins also exhibit normal compression/ augmentation properti es. The ipsilateral saphenofemoral junction is patent. IMPRESSION: 1. No evidence of DVT in the right lower extremity. DATA REPOSITORY:
--- NOTE | 2024-01-04 15:00 | DI.RAD_ITS ---
Exam(s) XR KNEE RT 4V AP,LAT,YECENIA,PAT EXAM: XR KNEE RT 4V AP,LAT,YECENIA,PAT CLINICAL HISTORY: Fall onto rock 1 week ago. TECHNIQUE: 2D digital imaging was performed. Four views. COMPARISON: No exams were available for comparison FINDINGS: BONES: No acute fracture is present. No bony destructive lesion is seen. JOINTS: The knee is normally aligned. No joint effusion is seen. Joint spaces are maintained. No s ignificant degenerative changes. SOFT TISSUE: Normal. IMPRESSION: Unremarkable radiographs of the right knee. DATA REPOSITORY: RADIATION DOSE DELIVERED:
[2024-01-04] MEDS: Doxycycline Hyclate 100 MG CAP 200 MG PO (15:24)
[2024-01-07 22:01] LABS: Anaplasma phagocytophilum Negative (Negative); B. miyamotoi PCR Negative (Negative); Babesia divergens/MO-1 Negative (Negative); Babesia duncani Negative (Negative); Babesia microti Negative (Negative); Ehrlichia chaffeensis Negative (Negative); Ehrlichia ewingii/canis Negative (Negative); Ehrlichia muris eauclairensis Negative (Negative)
[2024-01-08 11:15] LABS: Lyme Ab w Rflx to Lyme Confirm Negative (Negative)
== END 2024-01-04 16:08 | disposition home or self-care (01) ==
PROVIDERS: Emergency Provider Emergency Medicine; PCP Nurse Practitioner Family
DX: S89.81XA Other specified injuries of right lower leg, initial encounter (principal); S40.869A Insect bite (nonvenomous) of unspecified upper arm, initial encounter; Z86.718 Personal history of other venous thrombosis and embolism; Z79.82 Long term (current) use of aspirin; W01.0XXA Fall on same level from slipping, tripping and stumbling without subsequent striking against object, initial encounter; W57.XXXA Bitten or stung by nonvenomous insect and other nonvenomous arthropods, initial encounter; Y93.01 Activity, walking, marching and hiking; Y92.018 Other place in single-family (private) house as the place of occurrence of the external cause
CPT/HCPCS: 36415; 87798; 99285; 73564; 86618; 93971; 99284

== ENCOUNTER 2024-05-28 00:43 | Outpatient (CLI) | payer MEDICARE, SELFPAY ==
--- NOTE | 2024-05-28 | DI.MAMMO_ITS ---
Exam(s) MAMMO SCREENING EXAM: MAMMO SCREENING CLINICAL HISTORY: SCREENING, Z12.31. TECHNIQUE: Bilateral full field digital CC and MLO mammographic images were obtained with 3D tomosyn thesis and utilizing computer aided detection (CAD). COMPARISON: Prior mammograms were reviewed. FINDINGS: There has been no significant change in the appearance and distribution of the fibroglandular tissue. No CAD designations. There are no new spiculated masses nor malignant appearing microcalcification groups. There is no significant architectural distortion nor skin thickening-retraction. IMPRESSION: No radiographic evidence of malignancy. BI-RADS Category 1 - Negative Breast Density - Category B - Scattered areas of fibroglandular density Breast density Category C or D implies that the patient has dense breast tissue. Dense breast tissue can make it harder to find cancer on a mammogram. Dense breast tissue is also associated with an incr eased risk of breast cancer. This information about the result of the mammogram report was provided to the patient to raise their awareness. Use this report when you speak with the patient about their risks for breast cancer, which includes their family history. At that time, you may recommend additional screening tests (Ultrasoun d or MRI) as these tests may add significant information. A negative radiographic report should not delay biopsy if a dominant or clinically suspicious mass is present. Up to ten percent of cancers are not identified on mammography. A negative report may reinforce clinical impression. Adenosis and dense breasts may obscure an underlying neoplasm. False positive reports average 6 to 10%. Patient will receive a letter notifying them of these results.
== END 2024-05-28 01:03 ==
LOC: DI 00:43
PROVIDERS: PCP Nurse Practitioner Family; Visit Provider Family Medicine
DX: Z12.31 Encounter for screening mammogram for malignant neoplasm of breast (principal); R92.323 Mammographic fibroglandular density, bilateral breasts
CPT/HCPCS: 77063; 77067

== ENCOUNTER 2024-08-29 00:20 | Outpatient (CLI) | payer MEDICARE, SELFPAY ==
--- NOTE | 2024-08-29 | DI.DEXA_ITS ---
Exam(s) XR DEXA BONE DENSITY W/WO BRADY EXAM: XR DEXA BONE DENSITY W/WO BRADY CLINICAL HISTORY: Asymptomatic menopausal state, Z78.0 TECHNIQUE: LIVELENZ C densitometer analysis of left hip, lumbar spine and left forearm. Lateral survey image of the thoracic and lumbar spine. COMPARISON: No exams were available for comparison FINDINGS: Lateral view of the thoracic and lumbar spine shows no evidence of compression fractures. There is mild levoscoliosis. Bone mineral density measurements of the lumbar spine correspond to a total T- score of -4.1, in the osteoporotic range. Bone mineral density measurements of the left hip correspond to a total T-score of -1.8. The femoral neck T-score is -3.1, in the osteoporotic range. Theleft forearm bone mineral density measurements correspond to a T-score of the distal 3rd of -1.8, in the osteopenic range.. IMPRESSION: Osteoporosis of the spine and hip. Osteopenia of the forearm.
== END 2024-08-29 00:40 ==
LOC: DI 00:20
PROVIDERS: PCP Nurse Practitioner Family; Visit Provider Family Medicine
DX: M81.0 Age-related osteoporosis without current pathological fracture (principal); Z78.0 Asymptomatic menopausal state
CPT/HCPCS: 77080

== ENCOUNTER 2024-09-05 16:15 | Outpatient (CLI) | payer MEDICARE, SELFPAY ==
[2024-09-05 16:41] LABS: Abs Immature Grans 0.02 10^3/uL (0.0-0.06); HCT 39.7 % (36.0-46.0); HGB 13.0 g/dL (11.2-15.7); Immature Grans % 0.4 %; MCH 29.6 pg (27.0-33.0); MCHC 32.7 % (32.0-36.0); MCV 90 fL (80-95); MPV 10.0 fL (8.0-11.0); Platelet Count 254 10^3/uL (130-400); RBC 4.39 10^6/uL (3.93-5.22); RDW 13.5 % (11.7-14.6); RDW-SD 44.9 fL; WBC 5.27 10^3/uL (4.4-10.8)
[2024-09-09 09:04] LABS: Lyme Ab w Rflx to Lyme Confirm Negative (Negative)
[2024-09-11 21:51] LABS: B. miyamotoi PCR Negative (Negative); Babesia divergens/MO-1 Negative (Negative); Ehrlichia muris eauclairensis Negative (Negative)
== END 2024-09-05 16:16 | disposition home or self-care (01) ==
LOC: LBO 16:16
PROVIDERS: PCP Nurse Practitioner Family; Visit Provider Physician Assistant
DX: R53.83 Other fatigue (principal); W57.XXXA Bitten or stung by nonvenomous insect and other nonvenomous arthropods, initial encounter
CPT/HCPCS: 36415; 87798; 85025; 86618